=== PATIENT | female | born 1955 | race Caucasian/White ===

== ENCOUNTER 2023-11-19 09:46 | Outpatient (AMB) | payer MEDICARE, OTHER, SELFPAY ==
--- NOTE | 2023-11-19 10:10 | A.SPINEOV_ITS ---
Intake Visit Reasons: lumbar stenosis Intake Note: Ms. Restrepo is here today c/o low back pain, MRI at [facility] Communications Engineer Required: No Allergies cefazolin [From Ancef] Allergy (Severe, Verified 11/19/23 10:15) Anaphylaxis ketorolac [From Toradol] Allergy (Severe, Verified 11/19/23 10:15) Anaphylaxis cephalexin [From Keflex] Allergy (Mild, Verified 11/19/23 10:15) Rash Assessment & Plan Assessment & Plan (1) Spondylolisthesis, lumbar region: Code(s): M43.16 - Spondylolisthesis, lumbar region Category: Medical Plan Dear Jaun, Thank you for referring Mrs Restrepo to our office today. She is a 68-year-old female history of osteoporosis presents to the office today for evaluation of a back pain and bilateral lower extremity pain radiating down to her calves and feet that started 8-10 months ago. She had no major issues prior to that. She has not clear exactly why it started but it has been getting so bad that she has having a hard time standing and walking for any distance. She has been using the grocery cart in the store for grocery shopping. She tries to avoid any prolonged walking if at all. She has a history of peripheral artery disease and stents in her legs secondary to smoking. She tells me she had an evaluation of these and was told that the blood flow in her legs is fine. To this point she has only had a workup in your office with an MRI showing the findings of severe foraminal stenosis with spondylolisthesis at L5-S1 amongst other degenerative changes. She has been taking Tylenol and Motrin but those do not seem to have any effect. She has had no cortisone shots her physical therapy or other conservative management. PMH: She has an extensive medical history, mostly related to vascular issues, specifically she has had peripheral artery disease in her lower extremities with stents done a number of years ago. She has carotid stenosis, and has been followed by serial imaging and is due to see her vascular surgeon sometime this month. She is on Plavix for both of these issues. She is asthma and COPD, takes a few inhalers every few days but otherwise does not have any shortness of breath the report. No leg swelling. She has a history of AFib and is on Eliquis. History of coronary artery disease, but tells me she has never had a heart attack. History of pulmonary hypertension, hyperlipidemia, hypercalcemia, hyperparathyroidism, fatty liver, previous history of alcoholism with pancreatitis, GERD, osteoporosis, chronic diarrhea, depression, insomnia, breast cancer, status post mastectomy. Denies any history of abdominal surgeries. Social hx: She is still smoking about half a pack a day, she is in remission from alcohol abuse denies any use of recreational drugs Medications: Albuterol, amitriptyline, calcium, famotidine, Plavix, Eliquis, Prolia injections twice a year, hydroxyzine, lovastatin, venlafaxine, trazodone, Trelegy, gabapentin Allergies: Keflex, Ancef, amoxicillin, vanco and Toradol Physical exam: She is awake alert oriented no acute distress, she has full strength of bilateral lower extremities with normal reflexes. Imaging review: There is a lumbar MRI done at [facility] showing significant disc degeneration at multiple levels of the lumbar spine. She has a grade 1 spondyl olisthesis at L4-5 with bilateral foraminal stenosis. There is also a T1, T2 hypointense structure arising near the L5-S1 facet joint causing narrowing of the lateral recess. She also has significant facet hypertrophy at L4-5. She has a slightly collapsed disc at L3-4 on the left as well. Impression: 68-year-old female history of osteoporosis, history of AFib on Eliquis, vasculopathy on Plavix presents to the office today for evaluation of 8-10 months of chronic back pain with superimposed bilateral lower extremity pain radiating down into her feet. She has an MRI as outlined above with significant findings for nerve impingement at L5-S1 as well as facet hypertrophy at L4-5 and partial disc collapse at L3-4. I am going to send her for standing flexion-extension x-rays to rule out occult instability due evaluate for scoliotic curvature. I would also like to get a better look at her bone quality with a noncontrast lumbar CT given her history of osteoporosis. Typically, surgical correction of these problems involves instrumentation and hardware and her bone quality will be critical to understanding whether or not Dr. Albert can do surgery on her. Once he CT scan is complete I will bring her back the office to review and discuss options with her. I do not think there is any role here for cortisone shots or physical therapy but I did offer them both to her if she would look to avoid surgery but she does not believe these things will help her either. Thank you for allowing us to care for your patient. The total time spent with this visit with this patient was 45 minutes reviewing history, physical exam, lumbar imaging review, and implementation of treatment plan or further diagnostic testing Ronaldo Albert MD,PhD [facility] Orders: Orders XR lumbar spine 4V min Today M43.16 - Spondylolisthesis, lumbar region CT lumbar spine wo IV con Today M43.16 - Spondylolisthesis, lumbar region Coding Level of Care Code New Pt Level 4 (59791) Diagnoses Spondylolisthesis, lumbar region M43.16
== END 2023-11-19 11:17 | disposition home or self-care (01) ==
PROVIDERS: PCP Internal Medicine; Referring Provider Physician Assistant; Visit Provider Physician Assistant
DX: M43.16 Spondylolisthesis, lumbar region (principal)
CPT/HCPCS: 99204

== ENCOUNTER 2023-11-19 09:46 | Outpatient (REF) | payer MEDICARE, OTHER, SELFPAY ==
--- NOTE | ~2023-11-19 | XR_ITS ---
EXAMINATION: XR LUMBOSACRAL SPINE WITH OBLIQUES CLINICAL INFORMATION: Spondylolisthesis lumbar region. COMPARISON: None available. TECHNIQUE: 4 views of the lumbar spine inclusive of flexion and extension views. FINDINGS: Diffuse demineralization. Dextroscoliosis of the lumbar spine. Degenerative changes in the bilateral sacroiliac joints. Left vascular stent present overlying the iliac region. Facet arthritis in the lower lumbar spine. Atherosclerotic aortic calcifications. Multilevel lumbar spondylosis with loss of disc space height and subchondral sclerosis most notable at L3-L4. Mild grade 1 anterolisthesis of L4 on L5 with flexion and extension. There is a transitional lumbosacral vertebral body referred to as L5 for the purposes of this dictation. Grade 1 anterolisthesis of L5 on S1 persists on flexion and extension views with probable spondylolyses. Correlation with imaging of the entire spine recommended before any procedure/instrumentation to ensure correct numbering of vertebral bodies. XR/XR lumbar spine 4V min IMPRESSION: 1. Multilevel lumbar spondylosis most notable at L3-L4. 2. Grade 1 anterolisthesis of L5 on S1 persists on flexion and extension views with probable spondylolyses. There is a transitional lumbosacral vertebral body referred to as L5 for the purposes of this dictation. Correlation with imaging of the entire spine recommended before any procedure/instrumentation to ensure correct numbering of vertebral bodies.
== END 2023-11-19 09:47 | disposition home or self-care (01) ==
LOC: HO.HOSX 09:46
PROVIDERS: PCP Internal Medicine; Visit Provider Physician Assistant
DX: M43.16 Spondylolisthesis, lumbar region (principal)
CPT/HCPCS: 72110; 99202

== ENCOUNTER 2024-01-18 07:49 | Outpatient (REF) | payer MEDICARE, OTHER, SELFPAY ==
--- NOTE | ~2024-01-18 | CT_ITS ---
EXAMINATION: CT LUMBAR SPINE WITHOUT CONTRAST CLINICAL INFORMATION: Spondylolisthesis, lumbar region. COMPARISON: None available. TECHNIQUE: Contiguous axial images through the lumbar spine from T12 to sacrum using 2 mm collimation with bone and soft tissue algorithm. Sagittal and coronal reformatted images acquired. This CT examination was performed using dose optimization techniques as appropriate, variously including the following: *Automated exposure control *Adjustment of mA and/or kV according to patient size (this includes techniques or standardized protocols for targeted exams where dose is matched to indication/reason for exam; i.e. extremities or head) *Use of iterative reconstruction technique DLP; 434 mGy-cm FINDINGS: The last rib-bearing vertebra labeled T12. Subchondral cyst formation, decreased intervertebral disc height, marginal osteophyte formation and vacuum phenomenon, L3-4. Grade 1 anterolisthesis, L5-S1. Degenerative changes in the of the facet joints, L4-5 and L5-S1, bilaterally. Dystrophic ossifications within the medial aspect of the right facet joints L5-S1 and S1-2, likely encroaching/compressing the exiting nerve roots, L5, S1 and S2 levels. No acute cortical disruption. Multilevel marginal osteophyte formation, T12-L1 to L4-5. Central spinal canal and bilateral neuroforamina stenosis at L5-S1, L4-5 levels on a multifactorial basis. Nonobstructing nephrolithiasis, right pelvicalyceal system. Calcified plaque throughout the abdominal aorta wall and iliac arteries as well as the origin of the mesenteric arteries and the main renal arteries. Punctate calcifications within the head and uncinate process of the pancreas. Calcified plaques in the splenic artery. Appendix is normal. Low density in a prominent right adrenal gland measuring -7 Hounsfield units, similar on the left adrenal gland. Questionable punctate calcifications in the gallbladder lumen.. CT/CT lumbar spine wo IV con IMPRESSION: Multilevel spondylosis more conspicuous at L3-4. Grade 1 anterolisthesis on a degenerative basis, L5-S1 compressing the neural elements. Dystrophic calcification centered within the facet joints L5-S1 and S1-2 on the right side likely compressing the exiting nerve roots. Nonobstructing nephrolithiasis, right kidney. Probable cholelithiasis. Lipid rich adenoma versus hyperplasia, both adrenal glands.. Electronically signed by: Harjeet Menjivar MD 03/20/2024 11:54 AM EDT RP
== END 2024-01-18 07:50 | disposition home or self-care (01) ==
LOC: HO.CT 07:49
PROVIDERS: PCP Internal Medicine; Visit Provider Physician Assistant
DX: M43.16 Spondylolisthesis, lumbar region (principal)
CPT/HCPCS: 72131

== ENCOUNTER → 2024-01-18 07:54 | Outpatient (BNV) | payer MEDICARE, OTHER, SELFPAY | PROVIDERS: PCP Internal Medicine; Visit Provider Radiology Diagnostic Radiology | DX: M43.16 Spondylolisthesis, lumbar region (principal) | CPT/HCPCS: 72131 ==

== ENCOUNTER 2024-03-28 11:09 | Outpatient (AMB) | payer MEDICARE, OTHER, SELFPAY ==
--- NOTE | 2024-03-28 11:20 | A.SPINEOV_ITS ---
Intake Visit Reasons: CT follow up/with in office Intake Note: Ms. Restrepo is here today to F/u on the results to her CT. Local Tanker Truck Driver Required: No Allergies cefazolin [From Ancef] Allergy (Severe, Verified 11/19/23 10:15) Anaphylaxis ketorolac [From Toradol] Allergy (Severe, Verified 11/19/23 10:15) Anaphylaxis cephalexin [From Keflex] Allergy (Mild, Verified 11/19/23 10:15) Rash Assessment & Plan Assessment & Plan (1) Spondylolisthesis, lumbar region: Code(s): M43.16 - Spondylolisthesis, lumbar region Category: Medical Plan Mrs Restrepo is following up in the office today. Please see the last note for the specifics of a problem. She has significant stenosis and degeneration of her back. She also has a history of osteoporosis in the setting of alcoholism. She is a vasculopath, recently had a stroke, carotid endarterectomy a few months back as well as some kind of interventional procedure, sounds like a stent in and around the area that she had surgery on her neck. She remains on Plavix now for the stent, not just for her baseline vasculopathy. I explained to her that back surgery is elective and that it would be high risk at this point to try to do anything with her lumbar stenosis. The back pain seems to be a bit better any way but she is still having the leg pains. I told her to come back and see us down the road once her medical conditions have improved, and her vascular doctors tell her if/when it is okay to come off her Plavix after the stent. Total amount of time spent in this visit was 20 minutes in discussion of symptoms, CT and x-rays imaging results and subsequent plan of care Ronaldo Albert MD,PhD [facility] Coding Level of Care Code Est Pt Level 3 (28047) Diagnoses Spondylolisthesis, lumbar region M43.16
== END 2024-03-28 11:39 | disposition home or self-care (01) ==
PROVIDERS: PCP Internal Medicine; Visit Provider Physician Assistant
DX: M43.16 Spondylolisthesis, lumbar region (principal)
CPT/HCPCS: 99213

== ENCOUNTER → 2024-03-28 11:09 | Outpatient (BNVA) | payer MEDICARE, OTHER, SELFPAY | PROVIDERS: PCP Internal Medicine; Visit Provider Physician Assistant | DX: M43.16 Spondylolisthesis, lumbar region (principal) | CPT/HCPCS: 99212 ==

== ENCOUNTER 2024-04-25 11:02 | Outpatient (AMB) | payer MEDICARE, OTHER, SELFPAY ==
--- NOTE | 2024-04-25 11:47 | A.SPINEOV_ITS ---
Vital Signs 04/25/24 11:49 Height 5 ft 6 in Weight 116 lb BMI 18.7 Intake Visit Reasons: Discuss sx Intake Note: Ms. Restrepo is here to Discuss Surgical options. Laboratory Animal Care Veterinarian Required: No Allergies cefazolin [From Ancef] Allergy (Severe, Verified 04/25/24 11:48) Anaphylaxis ketorolac [From Toradol] Allergy (Severe, Verified 04/25/24 11:48) Anaphylaxis cephalexin [From Keflex] Allergy (Mild, Verified 04/25/24 11:48) Rash Physical Exam Vital Signs: BMI result Body Mass Index 18.7 Assessment & Plan Assessment & Plan (1) Thoracic back pain: Code(s): M54.6 - Pain in thoracic spine Category: Medical Plan MRs Restrepo is here in follow-up. She has been having new symptoms over the last few months. She describes as a spontaneous onset of midthoracic pain that is radiating outward as well as downward toward her lumbar spine. She has not recall any specific event when it started but rather just been getting steadily worse. It is not responded to [id number] pain medications. She can not take anti-inflammatories because she is on Plavix. No new neurological issues in terms of weakness or numbness going down her legs. She has been having trouble sleeping. I am going to order a thoracic MRI to evaluate for compression fracture in the setting of her known osteoporosis. I can call her with the results. She is on Plavix due to stent that was placed in her neck sometime around December or January. She does have a compression fracture or some other pathology that needs surgery we need to take this into consideration. Total amount of time spent in this visit was 20 minutes in discussion of symptoms, ordering thoracic imaging and subsequent plan of care Ronaldo Albert MD,PhD [facility] Orders: Orders MR thoracic spine wo con Today M54.9 - Dorsalgia, unspecified Coding Level of Care Code Est Pt Level 3 (67961) Diagnoses Thoracic back pain M54.6
[2024-04-25 11:49] VITALS: BMI 18.7
--- OUTSIDE RECORDS SUMMARY | 2024-04-30 07:47 | XMS_ITS ---
[facility] Name [facility] Organization Unknown History of Medication Use Medication Directions Dispensed Refills Start Date End Date Stat nicotine (NICODERM CQ) 21 MG/24HR patch Place 1 patch on the skin daily. 06/13/2023 active HYDROmorphone (DILAUDID) 2 MG tablet Take 1 tablet (2 mg total) by mouth 4 times daily (every 6 hours) as needed for severe pain. Max Daily Amount: 8 mg 06/13/2023 active traZODone (DESYREL) 50 MG tablet Take 1.5 tablets (75 mg total) by mouth nightly. 06/13/2023 active Incruse Ellipta 62.5 MCG/ACT inhaler INHALE 1 PUFF INTO THE LUNGS DAILY FOR 30 DAYS 06/13/2023 active clopidogrel (PLAVIX) 75 MG tablet Take 1 tablet (75 mg total) by mouth daily. 06/13/2023 active folic acid (FOLVITE) 1 MG tablet Take 1 tablet (1 mg total) by mouth daily. 06/13/2023 active vitamin B-12 100 MCG tablet Take 1 tablet (100 mcg total) by mouth daily. 06/13/2023 active gabapentin (NEURONTIN) 300 MG capsule Take 2 capsules (600 mg total) by mouth nightly. 06/13/2023 active polyethylene glycol (miraLAx) 17 g packet Take 1 packet (17 g total) by mouth daily. 06/13/2023 active Eliquis 5 MG tablet Take 1 tablet (5 mg total) by mouth 2 (two) times a day. 06/13/2023 active venlafaxine (EFFEXOR-XR) 75 MG 24 hr capsule Take 1 capsule (75 mg total) by mouth daily. 06/13/2023 active hydrOXYzine pamoate (VISTARIL) 25 MG capsule Take 1 capsule (25 mg total) by mouth 4 times daily (every 6 hours) as needed for anxiety. 06/13/2023 active albuterol (PROVENTIL HFA; VENTOLIN HFA) 108 (90 Base) MCG/ACT inhaler INHALE 2 PUFFS INTO LUNGS EVERY 6 HRS NEEDED FOR COUGH/WHEEZING 06/13/2023 active senna (SENOKOT) 8.6 MG Tab tablet Take 2 tablets by mouth daily as needed for constipation. 06/13/2023 active PANTOprazole (PROTONIX) 20 MG tablet Take 2 tablets (40 mg total) by mouth daily. 06/13/2023 active lovastatin (MEVACOR) 40 MG tablet Take 1 tablet (40 mg total) by mouth nightly. 06/13/2023 active citalopram (CeleXA) 40 MG tablet Take 1 tablet (40 mg total) by mouth daily. 06/13/2023 active Problems Problem Status Onset Date Problem Type Date of Resoluti on Source Transaminitis active 2023-05-27 ProblemAct [facility] T Pancreatic duct stricture active 2023-05-29 ProblemAct [facility] Biliary stricture active 2023-05-27 ProblemAct [facility] H/O ETOH abuse active 2023-05-[address] Macrocytic anemia active 2023-05-27 ProblemAct [facility]
== END 2024-04-25 13:08 | disposition home or self-care (01) ==
PROVIDERS: PCP Internal Medicine; Visit Provider Physician Assistant
DX: M54.6 Pain in thoracic spine (principal)
CPT/HCPCS: 99213

== ENCOUNTER → 2024-04-25 11:02 | Outpatient (BNVA) | payer MEDICARE, OTHER, SELFPAY | PROVIDERS: PCP Internal Medicine; Visit Provider Physician Assistant | DX: M54.6 Pain in thoracic spine (principal) | CPT/HCPCS: 99212 ==

== ENCOUNTER 2024-05-23 11:50 | Outpatient (AMB) | payer MEDICARE, OTHER, SELFPAY ==
--- NOTE | 2024-05-23 11:52 | A.SPINEOV_ITS ---
Intake Visit Reasons: MRI f/u Intake Note: Ms. Restrepo is here to F/u on the results of her MRI. Color Finisher Required: No Allergies cefazolin [From Ancef] Allergy (Severe, Verified 05/23/24 11:53) Anaphylaxis ketorolac [From Toradol] Allergy (Severe, Verified 05/23/24 11:53) Anaphylaxis cephalexin [From Keflex] Allergy (Mild, Verified 05/23/24 11:53) Rash Assessment & Plan Assessment & Plan (1) Thoracic back pain: Code(s): M54.6 - Pain in thoracic spine Category: Medical (2) Spondylolisthesis, lumbar region: Code(s): M43.16 - Spondylolisthesis, lumbar region Category: Medical Plan Mrs Restrepo came back today for follow-up. I do not have a report on her imaging done from [facility], but the thoracic MRI does not show any evidence of acute fracture on STIR imaging and there is no spinal cord compression. Therefore, I think this could be a muscular phenomenon some sort. With regard to her lumbar spine as well, I reviewed her imaging again in specifically the CT which shows very thin bones with osteoporosis. I do not think Dr. Albert would be willing to put screws into this and perform a fusion for back pain given the high likelihood of failure or fracture of the bone during placement of a cage. The patient understands that there are limitations with this equipment and that she would be high risk. She is probably best served in the pain management realm. Total amount of time spent in this visit was 20 minutes in discussion of symptoms, thoracic and lumbar imaging results and subsequent plan of care Ronaldo Albert MD,PhD [facility] Coding Level of Care Code Est Pt Level 3 (60290) Diagnoses Thoracic back pain M54.6 Spondylolisthesis, lumbar region M43.16
--- OUTSIDE RECORDS SUMMARY | 2024-05-23 13:38 | XMS_ITS ---
Author Organization [place] [email or web address] [facility] [employer], [employer] sales management trainee KON Care Team Providers Care Acupuncture Physician Name Role Phone Unavailable Unavailable Unavailable Fernie Tristan MD Primary Care Provider Fernie Tristan MD Primary Care Provider [phone] Allergies Allergy Classification Reported Allergen(s) Allergy Type Date of Onset Reaction(s) Care Provider Facility Cephalosporins (antibiotic) (20 sources) ceFAZolin Allergy to drug 018 Anaphylaxis, Photosensitivity Antonio bearden MD Work Phone: [facility] Work Phone: Glycopeptides (antibiotic) (13 sources) vancomycin Allergy to drug 024 Other (See Comments) Itzel White RN Work Phone: [facility] Work Phone: Comment on above: Pt is unsure the type of reaction she michaels s with vanco NSAIDs (13 sources) ketorolac Allergy to drug 024 Anaphylaxis Kenji Escobedo DO Work Phone: [facility] Encounters Encounter Date Encounter Type Encounter Diagnosis Care Provider Facility Start: 04-23-2024 12:43-0500 End: 04-23-2024 12:43-0500 Telephone encounter Bryce Capps MD Work Phone: [facility] Start: 07-30-2023 12:00-0400 Telephone encounter Bryce Capps MD Work Phone: [facility] Start: 07-16-2023 12:00-0500 Telephone encounter Bryce Capps MD Work Phone: [facility] Comment on above: Other Start: 06-18-2023 12:00-0500 Telephone encounter Bryce Capps MD Work Phone: [facility] Start: 06-13-2023 12:00-0500 Telephone encounter Bryce Capps MD Work Phone: [facility] Start: 06-11-2023 12:00-0500 Telephone encounter Bryce Capps MD Work Phone: [facility] Start: 05-27-2023 16:35-0500 End: 05-30-2023 17:18-0500 Evaluation and management of inpatient Abdominal pain Kenji Escobedo DO Work Phone: Antonio Goel MD Work Phone: Kiko Merrill MD Work Phone: Lamont Knapp MD Work Phone: Nick Shell MD Work Phone: [facility] Comment on above: Abdominal pain (Primary Dx); Transaminitis; Hyperbilirubinemia; Biliary stricture; Drug-induced constipation [facility] Medical Equipment Procedure Code Equipment Code Equipment Origin al Text Equipment Identifier Dates [id number] Stent Pancreatic 5fr 9cm Pigtail Curve Radopq Push Cath - [id number] Start: 05-29-2023 [id number] Stent Estevan iary Cotton-Adams 10fr 7cm Taper Tip Pstn Sleeve - [id number] Start: 05-29-2023 Medications Current Medications Medication Drug Class(es) Dates Sig (Normalized) Sig (Original) [id number] 200 ACTUAT albuterol 0.09 MG/ACTUAT Metered Dose Inhaler (8 sources) beta2-Adrenergic Agonist Start: 05-27-2023 take 2 puff(s) by inhalation every six hours as needed for wheezing 2 puff, Inhalation, Every 6 hours PRN, wheezing, shortness of breath, Starting on 05/27/23 at 1915 Start: 05-05-2023 take 2 puff(s) by in halation every six hours as needed for cough INHALE 2 PUFFS INTO LUNGS EVERY 6 HRS NEEDED FOR COUGH/WHEEZING apixaban 5 MG Oral Tablet (8 sources) Factor Xa Inhibitor Start: 05-11-2023 take 1 tablet by mouth twice daily 5 mg, Oral, 2 times daily, First dose on 05/27/23 at 2100, Tablets may be crushed and suspended in 60 mL of water, D5W, or apple juice or mixed with applesauce; administer immediately. For delivery through a nasogastric tube, crushed tablets may be suspended in 60 mL of water or D5W followed by immediate delivery., Indication for Anticoagulation: Atrial Fibrillation citalopram 40 MG Oral Tablet (7 sources) Serotonin Reuptake Inhibitor Start: 03-10-2023 take 1 tablet by mouth once daily Take 1 tablet (40 mg total) by mouth daily. clopidogrel 75 MG Oral Tablet (8 sources) P2Y12 Platelet Inhibitor Start: 03-15-2023 take 75 mg by mouth once daily 75 mg, Oral, Daily, First dose on 05/27/23 at 1916 14 ACTUAT fluticasone furoate 0.1 MG/ACTUAT / vilanterol 0.025 MG/ACTUAT Dry Powder Inhaler (1 source) Corticosteroid, beta2-Adrenergic Agonist Start: 05-28-2023 fluticasone-vilanter ol (BREO ELLIPTA) 100-25 MCG/ACT inhaler 1 puff folic acid 1 MG Oral Tablet (8 sources) Start: 05-27-2023 take 1000 ug by mouth once daily 1,000 mcg, Oral, Daily, First dose on 05/27/23 at 1916 Start: 03-13-2023 take 1 tablet by mouth once da rach Take 1 tablet (1 mg total) by mouth daily. gabapentin 300 MG Oral Capsule (8 sources) Anti-epileptic Agent Start: 05-27-2023 take 600 mg by mouth once daily 600 mg, Oral, Nightly, First dose on 05/27/23 at 2100 Start: 03-07-2023 take 2 capsules by m outh once daily Take 2 capsules (600 mg total) by mouth nightly. HYDROmorphone hydrochloride 2 MG Oral Tablet (11 sources) Opioid Agonist Start: 05-30-2023 End: 06-06-2023 Take 1 tablet (2 mg total) by mouth 4 times daily (every 6 hours) as needed for severe pain. Max Daily Amount: 8 mg Start: 05-29-2023 End: 05-30-2023 take 1 mg intravenously every three hours as needed HYDROmorphone (DILAUDID) injection 1 mg Start: 05-27-2023 End: 05-29-2023 take 0.5 mg intravenously every three hours as needed HYDROmorphone (DILAUDID) injection 0.5 mg hydrOXYzine hydrochloride 25 MG Oral Tablet (8 sources) Antihistamine Start: 05-27-2023 take 1 tablet by mouth every six hours as needed 25 mg, Oral, Every 6 hours PRN, itching, nausea, anxiety, Starting on 05/27/23 at 1915 Start: 05-24-2023 take 1 capsule by mo [facility] every six hours as needed Take 1 capsule (25 mg total) by mouth 4 times daily (every 6 hours) as needed for anxiety. lovastatin 40 MG Oral Tablet (7 sources) HMG-CoA Reductase Inhibitor Start: 03-10-2023 take 1 tablet by mouth once daily Take 1 tablet (40 mg total) by mouth nightly. metoprolol tartrate 25 MG Oral Tablet (1 source) beta-Adrenergic Moody Start: 05-28-2023 take 1 tablet by mouth every six hours as needed metoPROLOL TARTRATE (LOPRESSOR) tablet 25 mg 24 HR nicotine 0.875 MG/HR Transdermal System (7 sources) Cholinergic Nicotinic Agonist Start: 05-24-2023 apply 1 dose transdermal route once daily Place 1 patch on the skin daily. 2 ML ondansetron 2 MG/ML Injection (2 sources) Serotonin-3 Receptor Antagonist Start: 05-29-2023 ondansetron (ZOFRAN) injection 4 mg Start: 05-27-2023 End: 05-27-2023 ondansetron (ZOFRAN) injecti on 4 mg polyethylene glycol [id number] [id number] MG Powder for Oral Solution (7 sources) Osmotic Laxative Start: 05-30-2023 End: 06-29-2023 take 1 dose by mouth once daily Take 1 packet (17 g total) by mouth daily. pravastatin sodium 40 MG Oral Tablet (1 source) HMG-CoA Reductase Inhibitor Start: 05-27-2023 take 40 mg by mouth once daily 40 mg, Oral, Nightly, First dose on 05/27/23 at 2100 sennosides, SKILLED NURSING 8.6 MG Oral Tablet (7 sources) Start: 05-30-2023 End: 06-29-2023 take 2 tablets by mouth once daily as needed for constipation Take 2 tablets by mouth daily as needed for constipation. traZODone 25 MG Oral Capsule (8 sources) Serotonin Reuptake Inhibitor Start: 05-27-2023 take 25 mg by mouth once daily 25 mg, Oral, Nightly, First dose on 05/27/23 at 2100 Start: 05-24-2023 take 1.5 tablets by mouth once daily Take 1.5 tablets (75 mg total) by mouth nightly. 7 ACTUAT umeclidinium 0.0625 MG/ACTUAT Dry Powder Inhaler (7 sources) Anticholinergic Start: 04-22-2023 take 1 puff(s) by inhalation once daily INHALE 1 PUFF INTO THE LUNGS DAILY FOR 30 DAYS 24 HR venlafaxine 37.5 MG Extended Release Oral Capsule (8 sources) Serotonin and Norepinephrine Reuptake Inhibitor Start: 05-28-2023 take 1 tablet by mouth once daily at breakfast 75 mg, Oral, Daily with breakfast, First dose on Sun05/28/23 at 0800, *Swallow capsule/tablet whole. Alternatively, the contents of the capsule/tablet may be sprinkled onto a tablespoon of applesauce and consume immediately without chewing* Start: 05-24-2023 take 1 capsule by mouth once d aily Take 1 capsule (75 mg total) by mouth daily. vitamin B12 0.25 MG Oral Tablet (8 sources) Vitamin B12 Start: 05-27-2023 take 250 ug by mouth once daily 250 mcg, Oral, Daily, First dose on 05/27/23 at 1916 Start: 04-22-2023 take 1 tablet by mouth once da rach Take 1 tablet (100 mcg total) by mouth daily. Completed/Discontinued Medications Medication Drug Class(es) Dates Sig (Normalized) Sig (Original) aspirin 81 MG Delayed Release Oral Tablet (1 source) Platelet Aggregation Inhibitor, Nonsteroidal Anti-inflammatory Drug End: 05-28-2023 take 1 tablet by mouth once daily Take 1 tablet (81 mg total) by mouth daily. 50 ML calcium gluconate 20 MG/ML Injection (1 source) Start: 05-30-2023 End: 05-30-2023 calcium gluconate IVPB 1 g in 50 mL 0.67% NaCl PREMIX dilTIAZem hydrochloride 30 MG Oral Tablet (2 sources) Calcium Channel Moody Start: 04-22-2023 End: 05-30-2023 take 1 tablet by mouth every six hours 30 mg, Oral, Every 6 hours, First dose on Sun05/27/23 at 1916, Hold for HR less than 45 bpm and/or SBP less than 90 mmHg. Notify provider if a dose is held. 60 ACTUAT fluticasone propionate 0.25 MG/ACTUAT / salmeterol 0.05 MG/ACTUAT Dry Powder Inhaler (1 source) Corticosteroid, beta2-Adrenergic Agonist Start: 03-08-2023 End: 05-28-2023 take 1 puff(s) by inhalation twice daily Inhale 1 puff 2 (two) times a day. furosemide 20 MG Oral Tablet (2 sources) Loop Diuretic Start: 03-20-2023 End: 05-30-2023 20 mg, Oral, Daily, First dose on Sun05/28/23 at 0900, Hold for SBP less than 100 mmHg. Notify provider if a dose is held. 12 HR guaifenesin 600 MG Extended Release Oral Tablet (1 source) Expectorant Start: 04-22-2023 End: 05-28-2023 take 1 tablet by mouth every six hours Take 1 tablet (600 mg total) by mouth twice daily (every 12 hours). calcium chloride 0.0014 MEQ/ML / potassium chloride 0.004 MEQ/ML / sodium chloride 0.103 MEQ/ML / sodium lactate 0.028 MEQ/ML Injectable Solution (1 source) Start: 05-27-2023 End: 05-27-2023 lactated ringers (LR) bolus 100 ML magnesium sulfate 10 MG/ML Injection (1 source) Start: 05-30-2023 End: 05-30-2023 magnesium sulfate IVPB 1 g in 100 mL D5W (premix) naltrexone hydrochloride 50 MG Oral Tablet (1 source) Opioid Antagonist Start: 03-20-2023 End: 05-28-2023 take 1 tablet by mouth once daily TAKE 1 TABLET BY MOUTH DAILY DO NOT START UNTIL 03/26/23 pantoprazole 40 MG Delayed Release Oral Tablet (10 sources) Proton Pump Inhibitor Start: 05-30-2023 End: 05-30-2023 take 1 tablet by mouth twice daily Take 1 tablet (40 mg total) by mouth 2 times a day. Start: 05-30-2023 End: 06-29-2023 take 2 tablets by mouth once daily Take 2 tablets (40 mg total) by mouth daily. Start: 05-27-2023 40 mg, Intrave nous, 2 times daily, First dose on 05/27/23 at 2100, Reconstitute each 40 mg vial with 10 ml NS and administer over 2 minutes Start: 03-10-2023 End: 05-30-2023 take 1 tablet by mouth once daily Take 1 tablet (20 mg total) by mouth daily. potassium chloride 20 MEQ Powder for Oral Solution (1 source) Start: 05-30-2023 End: 05-30-2023 potassium chloride (KLOR-CON ) packet 40 mEq POTASSIUM phosphate IVPB 15 mmol in 250 mL NS (premix) (1 source) Start: 05-30-2023 End: 05-30-2023 POTASSIUM phosphate IVPB 15 mmol in 250 mL NS (premix) 1000 ML sodium chloride 9 MG /ML Injection (1 source) Start: 05-27-2023 End: 05-30-2023 sodium chloride 0.9% (NS) infusion Payers Date Payer Normalized Payer [id number] 03-21-2022 [id number] Plan of Treatment Date Care Activity Detail Author Start: 01-20-2024 COVID-19 Vaccine ( season) COVID-19 Vaccine ( season) [facility] Start: 08-21-2023 End: 08-21-2023 Admission to same day surgery center 08/21/2023 11:00 AM EDT - 08/21/2023 12:00 PM EDT Surgery [facility] [address] [place] [address] Bryce Capps MD [address] [place] [id number] ERCP /C PLACEMENT STENT [facility] Comment on above: ERCP /C PLACEMENT STENT Start: 08-21-2023 End: 08-21-2023 Ercp stent placement biliary/pancreatic duct ERCP /C PLACEMENT STENT Pancreatic duct stricture 08/21/2023 11:00 AM EDT [facility] Start: 08-21-2023 End: 08-21-2023 Patient encounter procedure 08/21/2023 11:00 AM EDT Appointment [address] [phone] Bryce Capps MD [address] [place] [id number] [facility] Start: 08-21-2023 Subsequent hospital visit by physician 08/21/2023 11:00 AM EDT Hospital Encounter [facility] [address] [place] [phone] Bryce Capps MD [address] [place] [id number] [facility] Start: 01-19-2023 COVID-19 Vaccine ( season) COVID-19 Vaccine ( season) [facility] Start: 12-19-2022 Administration of influenza vaccine Influenza Vaccine [facility] Start: 2022 DXA Bone Density (Females,Ages 65 and older) DXA Bone Density (Females,Ages 65 and older) [facility] Start: 2017 RSV Vaccine 60 years and older and Patients (1 - 1-dose 60+ series) RSV Vaccine 60 years and older and Patients (1 - 1-dose 60+ series) [facility] Start: 2017 RSV Vaccine 60 years and older and Patients (1 - Risk 60-74 years 1-dose series) RSV Vaccine 60 years and older and Patients (1 - Risk 60-74 years 1-dose series) [facility] Start: 2007 Hzv zoster vacc recombinant adjuvanted im njx Zoster (Shingles) Vaccine (1 of 2) [facility] Start: 2007 Screening for malignant neoplasm of lung Lung Cancer Screening (LDCT) [facility] Start: 2002 Screening for malignant neoplasm of colon Colonoscopy [facility] Start: 1997 Mammography Mammogram [facility] Start: 1976 DTaP/Tdap/Td Vaccines (1 - Tdap) DTaP/Tdap/Td Vaccines (1 - Tdap) [facility] Start: 1963 Pneumococcal Vaccines 65+ (1 of 2 - PCV) Pneumococcal Vaccines 65+ (1 of 2 - PCV) [facility] Start: 1957 COVID-19 Vaccine (#1) COVID-19 Vaccine (#1) [facility] are Bacteria identified in Blood by Culture BLOOD CULTURE Peripheral Lab STAT 05/27/2023 7:49 PM EST [facility] End: 05-31-2023 Complete blood count without differential COMPLETE BLOOD COUNT, WITHOUT DIFFERENTIAL Lab Routine *Early AM Draw (5:30AM) for 1 Occurrences starting 05/31/2023 until 05/31/2023 [facility] Work Phone: Comment on above: *Early AM Draw (5:30AM) for 1 Occurrence s starting 05/31/2023 until 05/31/2023 End: 05-31-2023 Comprehensive metabolic 2000 panel - Serum or Plasma Comprehensive Metabolic Panel (Early AM) Lab Routine *Early AM Draw (5:30AM) for 1 Occurrences starting 05/31/2023 until 05/31/2023 [facility] Comment on above: *Early AM Draw (5:30AM) for 1 Occurrence s starting 05/31/2023 until 05/31/2023 End: 05-27-2023 GABRIEL Archive for reference only GABRIEL Archive for reference only Imaging Routine One time imaging One time imaging for 1 Occurrences starting 05/27/2023 until 05/27/2023 [facility] Comment on above: One time imaging One time imaging for 1 Occurrences starting 05/27/2023 until 05/27/2023 [facility] Archive for reference only CT GABRIEL Archive for reference only CT Imaging Routine 05/27/2023 until discontinued, 1 completed [facility] Comment on above: 05/27/2023 until discontinued, 1 complet ed GABRIEL Archive for reference only CT GABRIEL Archive for reference only CT Imaging STAT 05/27/2023 until discontinued, 1 completed [facility] Comment on above: 05/27/2023 until discontinued, 1 complet ed GABRIEL Archive for reference only DX GABRIEL Archive for reference only DX Imaging Routine 05/27/2023 until discontinued, 1 completed [facility] Comment on above: 05/27/2023 until discontinued, 1 complet ed GABRIEL Archive for reference only MR GABRIEL Archive for reference only MR Imaging Routine 05/27/2023 until discontinued, 1 completed [facility] Work Phone: Comment on above: 05/27/2023 until discontinued, 1 complet ed GABRIEL Archive for reference only MR GABRIEL Archive for reference only MR Imaging STAT 05/27/2023 until discontinued, 1 completed [facility] Comment on above: 05/27/2023 until discontinued, 1 complet ed GABRIEL Archive for reference only US GABRIEL Archive for reference only US Imaging Routine 05/27/2023 until discontinued, 1 completed [facility] Comment on above: 05/27/2023 until discontinued, 1 complet ed GABRIEL Archive for reference only US GABRIEL Archive for reference only US Imaging STAT 05/27/2023 until discontinued, 1 completed [facility] Comment on above: 05/27/2023 until discontinued, 1 complet ed End: 05-29-2023 FL ERCP FL ERCP Imaging Routine One time imaging One time imaging for 1 Occurrences starting 05/29/2023 until 05/29/2023 [facility] Work Phone: Comment on above: One time imaging One time imaging for 1 Occurrences starting 05/29/2023 until 05/29/2023 End: 05-31-2023 Magnesium [Mass/volume] in Serum or Plasma MAGNESIUM Lab Routine *Early AM Draw (5:30AM) for 1 Occurrences starting 05/31/2023 until 05/31/2023 [facility] Comment on above: *Early AM Draw (5:30AM) for 1 Occurrence s starting 05/31/2023 until 05/31/2023 End: 05-31-2023 Phosphate [Mass/volume] in Serum or Plasma PHOSPHORUS Lab Routine *Early AM Draw (5:30AM) for 1 Occurrences starting 05/31/2023 until 05/31/2023 [facility] Comment on above: *Early AM Draw (5:30AM) for 1 Occurrence s starting 05/31/2023 until 05/31/2023 End: 05-29-2023 Simple Mask(Supplemental Oxygen) Starting Rate: 6 LPM; Maintain O2 Sat >/= (%): 92 Simple Mask(Supplemental Oxygen) Starting Rate: 6 LPM; Maintain O2 Sat >/= (%): 92 Respiratory Care Routine Until Discontinued until discontinued starting 05/29/2023 [facility] Work Phone: Comment on above: Until Discontinued until discontinued st arting 05/29/2023 Type and Screen Type and Screen Blood Bank STAT 05/27/2023 5:11 PM EST [facility] Work Phone: End: 05-27-2023 Upload outside films, do not interpret Upload outside films, do not interpret Imaging STAT One time imaging One time imaging for 1 Occurrences starting 05/27/2023 until 05/27/2023 [facility] Comment on above: One time imaging One time imaging for 1 Occurrences starting 05/27/2023 until 05/27/2023 Problems Active Problems Problem Classification Problem Date Last Recorded Documented Date Chronic Condition Indicator Provider Biliary tract disease (9 sources) Biliary stricture; Translations: [Obstruction of bile duct] 05-27-2023 Chronic Kenji [employer] DO Work Phone: Other nutritional; endocrine; and metabolic disorders (1 source) Hyperbilirubinem ia; Translations: [Other disorders of bilirubin metabolism] 05-27-2023 Chronic Kenji [employer] DO Work Phone: Alcohol-related disorders (8 sources) History of alcohol abuse; 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, in remission] 05-27-2023 Not applicable Kenji [employer] DO Work Phone: Other liver diseases (9 sources) Enzyme level - finding; Translations: [Elevation of levels of liver transaminase levels] 05-29-2023 Not applicable Nick Shell MD Work Phone: Past or Other Problems Problem Classification Problem Date Last Recorded Documented Date Chronic Condition Indicator Provider Abdominal pain (1 source) Abdominal pain; Translations: [Unspecified abdominal pain] 05-27-2023 Episodic Jessica DEL ANGEL Work Phone: Deficiency and other anemia (8 sources) Macrocytic anemia; Translations: [Nutritional anemia, unspecified] 05-27-2023 Episodic Kenji Escobedo DO Work Phone: Other gastrointestinal disorders (1 source) Drug-induced constipation; Translations: [Drug induced constipation] 05-30-2023 Episodic Mer Christensen [facility] [place] [place] Work Phone: Pancreatic disorders (not diabetes) (8 sources) Pancreatic duct stricture; Translations: [Other specified diseases of pancreas] 05-29-2023 Episodic Kenji Parkso DO Work Phone: Procedures Date Procedure Procedure Detail Performing Clinician Start: 05-30-2023 Complete blood count without differential completed Mer GOMEZ Work Phone: Start: 05-30-2023 Comprehensive metabo lic 2000 panel - Serum or Plasma completed Mer Christensen [facility] [place] [place] Work Phone: Start: 05-30-2023 Lipase [Enzymatic activity/volume] in Serum or Plasma completed Nick Shell MD Work Phone: Start: 05-30-2023 Magnesium [Mass/volu me] in Serum or Plasma completed Mer Christensen [facility] [place] [place] Work Phone: Start: 05-30-2023 Phosphate [Mass/volu me] in Serum or Plasma completed Mer Christensen [facility] [place] [place] Work Phone: Start: 05-29-2023 Cmbn ndsc cathj biliary&pncrtc ductal sys rs&i completed Prerna DEL ANGEL Work Phone: Start: 05-29-2023 End: 05-29-2023 ERCP completed Bryce laureano MD Work Phone: Start: 05-29-2023 Comprehensive metabo lic panel completed Lamont Knapp MD Work Phone: Start: 05-29-2023 Magnesium [Mass/volu me] in Serum or Plasma completed Lamont Knapp MD Work Phone: Start: 05-28-2023 Iadna sarscov2 & inf a&b & rsv mult amp probe tq completed Antonio Goel MD Work Phone: Start: 05-28-2023 Comprehensive metabo lic panel completed Antonio Goel MD Work Phone: Start: 05-28-2023 Lactate [Moles/volum e] in Serum or Plasma completed Antonio Goel MD Work Phone: Start: 05-28-2023 Magnesium [Mass/volu me] in Serum or Plasma completed Antonio Goel MD Work Phone: Start: 05-28-2023 Procalcitonin [Mass/ volume] in Serum or Plasma by Immunoassay completed Antonio Goel MD Work Phone: Start: 05-27-2023 Comprehensive metabo lic panel completed Antonio Goel MD Work Phone: Start: 05-27-2023 HIGH SENSITIVITY TROPONIN T complete agustina Goel MD Work Phone: Start: 05-27-2023 12 lead ECG completed Antonio Lujan MD Work Phone: Start: 05-27-2023 Portable XR Chest Views completed Antonio Goel MD Work Phone: Start: 05-27-2023 Bacteria identified in Blood by Culture completed Antonio Goel MD Work Phone: Start: 05-27-2023 Acetaminophen [Mass/ volume] in Serum or Plasma completed Antonio Goel MD Work Phone: Start: 05-27-2023 Acute hepatitis panel completed Agustina Goel MD Work Phone: Start: 05-27-2023 Ammonia [Moles/volum e] in Plasma completed Antonio Goel MD Work Phone: Start: 05-27-2023 Assay of troponin quantitative completed Antonio Goel MD Work Phone: Start: 05-27-2023 C reactive protein [Mass/volume] in Serum or Plasma completed Antonio Goel MD Work Phone: Start: 05-27-2023 Ethanol [Mass/volume ] in Serum or Plasma completed Antonio Goel MD Work Phone: Start: 05-27-2023 Gamma glutamyl trans ferase [Enzymatic activity/volume] in Serum or Plasma completed Antonio Goel MD Work Phone: Start: 05-27-2023 Salicylates [Mass/vo lume] in Serum or Plasma completed Antonio Goel MD Work Phone: Start: 05-27-2023 Triglyceride [Mass/v olume] in Serum or Plasma completed Antonio Goel MD Work Phone: Start: 05-27-2023 Amphetamines [Presen ce] in Urine completed Antonio Goel MD Work Phone: Start: 05-27-2023 Barbiturates [Presen ce] in Urine by Screen method >200 ng/mL completed Antonio Goel MD Work Phone: Start: 05-27-2023 Benzodiazepines [Pre sence] in Urine completed Antonio Goel MD Work Phone: Start: 05-27-2023 Benzoylecgonine [Pre sence] in Urine completed Antonio Goel MD Work Phone: Start: 05-27-2023 Buprenorphine [Prese nce] in Urine completed Antonio Goel MD Work Phone: Start: 05-27-2023 Cannabinoids [Presen ce] in Urine by Screen method >50 ng/mL completed Antonio Goel MD Work Phone: Start: 05-27-2023 Ethanol [Mass/volume ] in Urine completed Antonio Goel MD Work Phone: Start: 05-27-2023 fentaNYL+Norfentanyl [Presence] in Urine by Screen method completed Antonio Goel MD Work Phone: Start: 05-27-2023 Methadone [Presence] in Urine completed Antonio Goel MD Work Phone: Start: 05-27-2023 Opiates [Presence] i n Urine by Screen method >300 ng/mL completed Antonio Goel MD Work Phone: Start: 05-27-2023 oxyCODONE [Presence] in Urine completed Antonio Goel MD Work Phone: Start: 05-27-2023 Phencyclidine [Prese nce] in Urine by Screen method >25 ng/mL completed Antonio Goel MD Work Phone: Start: 05-27-2023 Tricyclic antidepres sants [Presence] in Urine by Screen method completed Antonio Goel MD Work Phone: Start: 05-27-2023 Urnls dip stick/tabl et rgnt auto w/o microscopy completed Antonio Goel MD Work Phone: Start: 05-27-2023 GABRIEL ARCHIVE FOR REFE RENCE ONLY CT completed Antonio Goel MD Work Phone: Start: 05-27-2023 GABRIEL [employer] FOR REFE RENCE ONLY MR completed Antonio Goel MD Work Phone: Start: 05-27-2023 GABRIEL [employer]CH[employer] FOR REFE RENCE ONLY US completed Antonio Goel MD Work Phone: Start: 05-27-2023 Blood typing serologic abo completed Jessica DEL ANGEL Work Phone: Start: 05-27-2023 Comprehensive metabo lic panel completed Jessica DEL ANGEL Work Phone: Start: 05-27-2023 Lipase [Enzymatic activity/volume] in Serum or Plasma completed Jessica DEL ANGEL Work Phone: Start: 05-27-2023 GABRIEL [employer] FOR REFE RENCE ONLY DX completed Antonio Goel MD Work Phone: Start: 05-27-2023 GABRIEL ARCHIVE FOR REFE RENCE ONLY CT completed Antonio Goel MD Work Phone: Start: 05-27-2023 GABRIEL ARCH[employer] FOR REFE RENCE ONLY MR completed Antonio Goel MD Work Phone: Start: 05-27-2023 GABRIEL [employer] FOR REFE RENCE ONLY US completed Antonio Goel MD Work Phone: Results Test Name Value Interpretation Reference Range Facility Date Time Result Note COMPLETE BLOOD COUNT, WITHOU T DIFFERENTIALon 05-30-2023 RBC Auto (Bld) [#/Vol] 2.51 Low [facility] 05-30 07:31 -0500 Red Blood Cell Count 2.51 (L) 4.00 - 5.40 Mil/uL 05/30/2023 7:31 AM [facility] Hematocrit Auto (Bld) [Volume fraction] 28.6 % Low 35.0 - 47.0 % [facility] 05-30 07:31 -0500 Hematocrit 28.6 (L) 35.0 - 47.0 % 05/30/2023 7:31 AM [facility] Hemoglobin (Bld) [Mass/Vol] 9.0 g/dL Low 11.7 - 15.7 g/dL [facility] 05-30 07:31 -0500 Hemoglobin 9.0 (L) 11.7 - 15.7 g/dL 05/30/2023 7:31 AM [facility] MCH Auto (RBC) [Entitic mass] 35.9 pg High 27.0 - 31.0 pg [facility] 05-30 07:31 -0500 MCH 35.9 (H) 27.0 - 31.0 pg 05/30/2023 7:31 AM [facility] MCHC Auto (RBC) [Mass/Vol] 31.5 g/dL 30.0 - 36.0 g/dL [facility] 05-30 07:31 -0500 MCHC 31.5 30.0 - 36.0 g/dL 05/30/2023 7:31 AM [facility] MCV Auto (RBC) [Entitic vol] 114 fL High 80 - 100 fL [facility] 05-30 07:31 -0500 MCV 114 (H) 80 - 100 fL 05/30/2023 7:31 AM [facility] Platelet mean volume Auto (Bld) [Entitic vol] 11.4 fL 7.5 - 12.5 fL [facility] 05-30 07:31 -0500 MPV 11.4 7.5 - 12.5 fL 05/30/2023 7:31 AM [facility] Platelets Auto (Bld) [#/Vol] 187 [facility] 05-30 07:31 -0500 Platelet Count 187 150 - 450 Thou/uL 05/30/2023 7:31 AM [facility] Erythrocyte distribution width Auto (RBC) [Ratio] 17.2 % High 11.5 - 14.5 % [facility] 05-30 07:31 -0500 RDW 17.2 (H) 11.5 - 14.5 % 05/30/2023 7:31 AM [facility] WBC Auto (Bld) [#/Vol] 4.4 [facility] 05-30 07:31 -0500 White Blood Cell Count 4.4 4.0 - 11.0 Thou/uL 05/30/2023 7:31 AM [facility] Comprehensive Metabolic Pane l (Early AM)on 05-30-2023 ALT [Catalytic activity/Vol] 111 U/L High 10 - 50 U/L [facility] 05-30 07:33 -0500 Alanine Aminotrans (ALT) 111 (H) 10 - 50 U/L 05/30/2023 7:33 AM [facility] Albumin [Mass/Vol] 3.2 g/dL Low 3.4 - 4.8 g/dL [facility] 05-30 07:33 -0500 Albumin 3.2 (L) 3.4 - 4.8 g/dL 05/30/2023 7:33 AM [facility] ALP [Catalytic activity/Vol] 311 U/L High 32 - 122 U/L [facility] 05-30 07:33 -0500 Alkaline Phosphatase 311 (H) 32 - 122 U/L 05/30/2023 7:33 AM [facility] AST [Catalytic activity/Vol] 107 U/L High 10 - 50 U/L [facility] 05-30 07:33 -0500 Aspartate Aminotrans (AST) 107 (H) 10 - 50 U/L 05/30/2023 7:33 AM [facility] Bilirubin [Mass/Vol] 1.2 mg/dL High 0.2 - 1.0 mg/dL [facility] 05-30 07:33 -0500 Bilirubin, Total 1.2 (H) 0.2 - 1.0 mg/dL 05/30/2023 7:33 AM [facility] Urea nitrogen/Crea tinine [Mass ratio] 10 [facility] 05-30 07:33 -0500 BUN/Creatinine Ratio 10 10.0 - 25.0 Ratio 05/30/2023 7:33 AM [facility] Calcium [Mass/Vol] 7.7 mg/dL Low 8.7 - 10.5 mg/dL [facility] 05-30 07:33 -0500 Calcium 7.7 (L) 8.7 - 10.5 mg/dL 05/30/2023 7:33 AM [facility] Chloride [Moles/Vol] 106 mmol/L 98 - 107 mmol/L [facility] 05-30 07:33 -0500 Chloride 106 98 - 107 mmol/L 05/30/2023 7:33 AM [facility] CO2 [Moles/Vol] 21 mmol/L Low 22 - 33 mmol/L [facility] 05-30 07:33 -0500 CO2 21 (L) 22 - 33 mmol/L 05/30/2023 7:33 AM [facility] Creatinine [Mass/Vol] 0.6 mg/dL 0.4 - 1.1 mg/dL [facility] 05-30 07:33 -0500 Creatinine 0.6 0.4 - 1.1 mg/dL 05/30/2023 7:33 AM [facility] Glucose [Mass/Vol] 60 mg/dL Low 65 - 99 mg/dL [facility] 05-30 07:33 -0500 Glucose 60 (L) 65 - 99 mg/dL 05/30/2023 7:33 AM [facility] Comment on above: Fasting: <100 mg/dL, Non-Fasting: <200 m g/dL (ADA 2005) Potassium [Moles/Vol] 3.3 mmol/L Low 3.4 - 5.3 mmol/L [facility] 05-30 07:33 -0500 Potassium 3.3 (L) 3.4 - 5.3 mmol/L 05/30/2023 7:33 AM [facility] Protein [Mass/Vol] 5.5 g/dL Low 6.3 - 8.3 g/dL [facility] 05-30 07:33 -0500 Protein, Total 5.5 (L) 6.3 - 8.3 g/dL 05/30/2023 7:33 AM [facility] Sodium [Moles/Vol] 140 mmol/L 136 - 145 mmol/L [facility] 05-30 07:33 -0500 Sodium 140 136 - 145 mmol/L 05/30/2023 7:33 AM [facility] Urea nitrogen [Mass/Vol] 6 mg/dL Low 8 - 21 mg/dL [facility] 05-30 07:33 -0500 Blood Urea Nitrogen (BUN) 6 (L) 8 - 21 mg/dL 05/30/2023 7:33 AM [facility] GFR/1.73 sq M.predicted CKD-EPI (S/P/Bld) [Vol rate/Area] <PINF >90 59 - PINF [facility] 05-30 07:33 -0500 eGFR >90 >59 05/30/2023 7:33 AM [facility] Comment on above: CKD-EPI (2021) in mL/min/1.73 sq meters. Globulin Calc (S) [Mass/Vol] 2.3 g/dL 1.5 - 3.9 g/dL [facility] 05-30 07:33 -0500 Globulin 2.3 1.5 - 3.9 g/dL 05/30/2023 7:33 AM [facility] Albumin/Globu lydia [Mass ratio] 1.4 [facility] 05-30 07:33 -0500 Albumin/Globuli n Ratio 1.4 1.0 - 3.0 Ratio 05/30/2023 7:33 AM [facility] Anion gap (Bld) [Moles/Vol] 13 7 - 17 [facility] 05-30 07:33 -0500 Anion Gap 13 7 - 17 05/30/2023 7:33 AM [facility] Emergency Department (DEEDS) variableson 05-30-2023 Interpretatio n and review of laboratory results Abnormal [facility] 05-30 07:33 -0500 LIPASEon 05-30-2023 Lipase [Catalytic activity/Vol] 62 U/L High 13 - 60 U/L [facility] 05-30 08:48 -0500 Lipase 62 (H) 13 - 60 U/L 05/30/2023 8:48 AM [facility] Interpretatio n and review of laboratory results Abnormal [facility] 05-30 08:48 -0500 [facility] 05-30 08:48 -0500 MAGNESIUMon 05-30-2023 Magnesium [Mass/Vol] 1.1 mg/dL Low 1.6 - 2.7 mg/dL [facility] 05-30 07:33 -0500 Magnesium 1.1 (L) 1.6 - 2.7 mg/dL 05/30/2023 7:33 AM [facility] No Panel Informationon 05-30 [facility] 05-30 07:33 -0500 PHOSPHORUSon 05-30-2023 Phosphate [Mass/Vol] 1.5 mg/dL Low 2.7 - 4.5 mg/dL [facility] 05-30 07:33 -0500 Phosphorus 1.5 (L) 2.7 - 4.5 mg/dL 05/30/2023 7:33 AM [facility] Complete Blood Count, withou t Differentialon 05-29-2023 RBC Auto (Bld) [#/Vol] 2.65 Low [facility] 05-29 06:59 -0500 Red Blood Cell Count 2.65 (L) 4.00 - 5.40 Mil/uL 05/29/2023 6:59 AM [facility] Hematocrit Auto (Bld) [Volume fraction] 29.9 % Low 35.0 - 47.0 % [facility] 05-29 06:59 -0500 Hematocrit 29.9 (L) 35.0 - 47.0 % 05/29/2023 6:59 AM [facility] Hemoglobin (Bld) [Mass/Vol] 9.4 g/dL Low 11.7 - 15.7 g/dL [facility] 05-29 06:59 -0500 Hemoglobin 9.4 (L) 11.7 - 15.7 g/dL 05/29/2023 6:59 AM [facility] MCH Auto (RBC) [Entitic mass] 35.5 pg High 27.0 - 31.0 pg [facility] 05-29 06:59 -0500 MCH 35.5 (H) 27.0 - 31.0 pg 05/29/2023 6:59 AM [facility] MCHC Auto (RBC) [Mass/Vol] 31.4 g/dL 30.0 - 36.0 g/dL [facility] 05-29 06:59 -0500 MCHC 31.4 30.0 - 36.0 g/dL 05/29/2023 6:59 AM [facility] MCV Auto (RBC) [Entitic vol] 113 fL High 80 - 100 fL [facility] 05-29 06:59 -0500 MCV 113 (H) 80 - 100 fL 05/29/2023 6:59 AM [facility] Platelet mean volume Auto (Bld) [Entitic vol] 11.9 fL 7.5 - 12.5 fL [facility] 05-29 06:59 -0500 MPV 11.9 7.5 - 12.5 fL 05/29/2023 6:59 AM [facility] Platelets Auto (Bld) [#/Vol] 180 [facility] 05-29 06:59 -0500 Platelet Count 180 150 - 450 Thou/uL 05/29/2023 6:59 AM [facility] Erythrocyte distribution width Auto (RBC) [Ratio] 16.7 % High 11.5 - 14.5 % [facility] 05-29 06:59 -0500 RDW 16.7 (H) 11.5 - 14.5 % 05/29/2023 6:59 AM [facility] WBC Auto (Bld) [#/Vol] 4.7 [facility] 05-29 06:59 -0500 White Blood Cell Count 4.7 4.0 - 11.0 Thou/uL 05/29/2023 6:59 AM [facility] Comprehensive Metabolic Pane karel 05-29-2023 ALT [Catalytic activity/Vol] 132 U/L High 10 - 50 U/L [facility] 05-29 07:04 -0500 Alanine Aminotrans (ALT) 132 (H) 10 - 50 U/L 05/29/2023 7:04 AM [facility] Albumin [Mass/Vol] 3.4 g/dL 3.4 - 4.8 g/dL [facility] 05-29 07:04 -0500 Albumin 3.4 3.4 - 4.8 g/dL 05/29/2023 7:04 AM [facility] ALP [Catalytic activity/Vol] 359 U/L High 32 - 122 U/L [facility] 05-29 07:04 -0500 Alkaline Phosphatase 359 (H) 32 - 122 U/L 05/29/2023 7:04 AM [facility] AST [Catalytic activity/Vol] 164 U/L High 10 - 50 U/L [facility] 05-29 07:04 -0500 Aspartate Aminotrans (AST) 164 (H) 10 - 50 U/L 05/29/2023 7:04 AM [facility] Bilirubin [Mass/Vol] 4.5 mg/dL High 0.2 - 1.0 mg/dL [facility] 05-29 07:04 -0500 Bilirubin, Total 4.5 (H) 0.2 - 1.0 mg/dL 05/29/2023 7:04 AM [facility] Urea nitrogen/Crea tinine [Mass ratio] 11 [facility] 05-29 07:04 -0500 BUN/Creatinine Ratio 11 10.0 - 25.0 Ratio 05/29/2023 7:04 AM [facility] Calcium [Mass/Vol] 8.1 mg/dL Low 8.7 - 10.5 mg/dL [facility] 05-29 07:04 -0500 Calcium 8.1 (L) 8.7 - 10.5 mg/dL 05/29/2023 7:04 AM [facility] Chloride [Moles/Vol] 102 mmol/L 98 - 107 mmol/L [facility] 05-29 07:04 -0500 Chloride 102 98 - 107 mmol/L 05/29/2023 7:04 AM [facility] CO2 [Moles/Vol] 25 mmol/L 22 - 33 mmol/L [facility] 05-29 07:04 -0500 CO2 25 22 - 33 mmol/L 05/29/2023 7:04 AM [facility] Creatinine [Mass/Vol] 0.7 mg/dL 0.4 - 1.1 mg/dL [facility] 05-29 07:04 -0500 Creatinine 0.7 0.4 - 1.1 mg/dL 05/29/2023 7:04 AM [facility] Glucose [Mass/Vol] 74 mg/dL 65 - 99 mg/dL [facility] 05-29 07:04 -0500 Glucose 74 65 - 99 mg/dL 05/29/2023 7:04 AM [facility] Comment on above: Fasting: <100 mg/dL, Non-Fasting: <200 m g/dL (ADA 2005) Potassium [Moles/Vol] 3.8 mmol/L 3.4 - 5.3 mmol/L [facility] 05-29 07:04 -0500 Potassium 3.8 3.4 - 5.3 mmol/L 05/29/2023 7:04 AM [facility] Protein [Mass/Vol] 5.5 g/dL Low 6.3 - 8.3 g/dL [facility] 05-29 07:04 -0500 Protein, Total 5.5 (L) 6.3 - 8.3 g/dL 05/29/2023 7:04 AM [facility] Sodium [Moles/Vol] 138 mmol/L 136 - 145 mmol/L [facility] 05-29 07:04 -0500 Sodium 138 136 - 145 mmol/L 05/29/2023 7:04 AM [facility] Urea nitrogen [Mass/Vol] 8 mg/dL 8 - 21 mg/dL [facility] 05-29 07:04 -0500 Blood Urea Nitrogen (BUN) 8 8 - 21 mg/dL 05/29/2023 7:04 AM [facility] GFR/1.73 sq M.predicted CKD-EPI (S/P/Bld) [Vol rate/Area] <PINF >90 59 - PINF [facility] 05-29 07:04 -0500 eGFR >90 >59 05/29/2023 7:04 AM [facility] Comment on above: CKD-EPI (2020) in mL/min/1.73 sq meters. Globulin Calc (S) [Mass/Vol] 2.1 g/dL 1.5 - 3.9 g/dL [facility] 05-29 07:04 -0500 Globulin 2.1 1.5 - 3.9 g/dL 05/29/2023 7:04 AM [facility] Albumin/Globu lydia [Mass ratio] 1.6 [facility] 05-29 07:04 -0500 Albumin/Globuli n Ratio 1.6 1.0 - 3.0 Ratio 05/29/2023 7:04 AM [facility] Anion gap (Bld) [Moles/Vol] 11 7 - 17 [facility] 05-29 07:04 -0500 Anion Gap 11 7 - 17 05/29/2023 7:04 AM [facility] Emergency Department (DEEDS) variableson 05-29-2023 Interpretatio n and review of laboratory results Abnormal [facility] 05-29 07:04 -0500 [place] ERCPon 05-29-2023 FINDINGS/IMPRE SSION: The initial image demonstrates the endoscope projecting over the proximal duodenum. There is retrograde cannulization and injection of contrast through the pancreatic and common bile ducts. The proximal portion of the pancreatic duct is stenotic. The lower portion of the common bile duct is opacified, however the remainder of the common bile duct and biliary tree is not opacified. Per technologist report, stents were placed in the pancreatic duct and common bile duct.. Please correlate with the full procedural report for further details. Giovanny Donato MD [employer] Reporter I personally reviewed the images and, if necessary, I edited the report. I agree with the report as now presented. [facility] 05-30 09:20 -0500 FINDINGS/IMPRES BALJIT: The initial image demonstrates the endoscope projecting over the proximal duodenum. There is retrograde cannulization and injection of contrast through the pancreatic and common bile ducts. The proximal portion of the pancreatic duct is stenotic. The lower portion of the common bile duct is opacified, however the remainder of the common bile duct and biliary tree is not opacified. Per technologist report, stents were placed in the pancreatic duct and common bile duct.. Please correlate with the full procedural report for further details. Giovanny Donato MD [employer] I personally reviewed the images and, if necessary, I edited the report. I agree with the report as now presented. EXAMINATION: ERCP INDICATION: Biliary stricture. TECHNIQUE: Intraoperative fluoroscopic assistance was used by Dr. Capps to perform an ERCP. 16 images were provided for review. Contrast administered: Omnipaque 350. Fluoroscopic time: 3.6 minutes. DAP: : 5.95 Gy-cm2 COMPARISON: None prior. [facility] 05-30 09:20 -0500 EXAMINATION: ERCP INDICATION: Biliary stricture. TECHNIQUE: Intraoperative fluoroscopic assistance was used by Dr. Capps to perform an ERCP. 16 images were provided for review. Contrast administered: Omnipaque 350. Fluoroscopic time: 3.6 minutes. DAP: : 5.95 Gy-cm2 COMPARISON: None prior. Stevie Jennings MD - 05/30/2023 EXAMINATION: ERCP INDICATION: Biliary stricture. TECHNIQUE: Intraoperative fluoroscopic assistance was used by Dr. Capps to perform an ERCP. 16 images were provided for review. Contrast administered: Omnipaque 350. Fluoroscopic time: 3.6 minutes. DAP: : 5.95 Gy-cm2 COMPARISON: None prior. IMPRESSION: FINDINGS/IMPRE SSION: The initial image demonstrates the endoscope projecting over the proximal duodenum. There is retrograde cannulization and injection of contrast through the pancreatic and common bile ducts. The proximal portion of the pancreatic duct is stenotic. The lower portion of the common bile duct is opacified, however the remainder of the common bile duct and biliary tree is not opacified. Per technologist report, stents were placed in the pancreatic duct and common bile duct.. Please correlate with the full procedural report for further details. Giovanny Donato MD [employer] Reporter I personally reviewed the images and, if necessary, I edited the report. I agree with the report as now presented. [facility] 05-30 09:20 0500 Stevie Jennings MD - 05/30/2023 EXAMINATION: ERCP INDICATION: Biliary stricture. TECHNIQUE: Intraoperative fluoroscopic assistance was used by Dr. Capps to perform an ERCP. 16 images were provided for review. Contrast administered: Omnipaque 350. Fluoroscopic time: 3.6 minutes. DAP: : 5.95 Gy-cm2 COMPARISON: None prior. IMPRESSION: FINDINGS/IMPRES BALJIT: The initial image demonstrates the endoscope projecting over the proximal duodenum. There is retrograde cannulization and injection of contrast through the pancreatic and common bile ducts. The proximal portion of the pancreatic duct is stenotic. The lower portion of the common bile duct is opacified, however the remainder of the common bile duct and biliary tree is not opacified. Per technologist report, stents were placed in the pancreatic duct and common bile duct.. Please correlate with the full procedural report for further details. Giovanny Donato MD [employer] Reporter I personally reviewed the images and, if necessary, I edited the report. I agree with the report as now presented. Radiology Study observation (narrative) [facility] ERCPOrdered By: Stevie Reynoso on 05-29-2023 [facility] Work Phone: 05-30 09:20 -0500 Magnesiumon 05-29-2023 Magnesium [Mass/Vol] 1.3 mg/dL Low 1.6 - 2.7 mg/dL [facility] 05-29 07:04 -0500 Magnesium 1.3 (L) 1.6 - 2.7 mg/dL 05/29/2023 7:04 AM [facility] No Panel Informationon 05-29 [facility] 05-29 07:04 -0500 Complete Blood Count, with D ifferentialon 05-28-2023 Basophils Auto (Bld) [#/Vol] 0.04 [facility] 05-28 08:08 -0500 Abs Basophils Auto 0.04 0.00 - 0.20 Thou/uL 05/28/2023 8:08 AM [facility] Basophils/100 WBC Auto (Bld) 0.7 % [facility] 05-28 08:08 -0500 Basophils Auto 0.7 % 05/28/2023 8:08 AM [facility] Eosinophils Auto (Bld) [#/Vol] 0.17 [facility] 05-28 08:08 -0500 Abs Eosinophils Auto 0.17 0.00 - 0.70 Thou/uL 05/28/2023 8:08 AM [facility] Eosinophils/1 00 WBC Auto (Bld) 3.0 % [facility] 05-28 08:08 -0500 Eosinophils Auto 3.0 % 05/28/2023 8:08 AM [facility] RBC Auto (Bld) [#/Vol] 2.85 Low [facility] 05-28 08:08 -0500 Red Blood Cell Count 2.85 (L) 4.00 - 5.40 Mil/uL 05/28/2023 8:08 AM [facility] Hematocrit Auto (Bld) [Volume fraction] 31.8 % Low 35.0 - 47.0 % [facility] 05-28 08:08 -0500 Hematocrit 31.8 (L) 35.0 - 47.0 % 05/28/2023 8:08 AM [facility] Hemoglobin (Bld) [Mass/Vol] 10.1 g/dL Low 11.7 - 15.7 g/dL [facility] 05-28 08:08 -0500 Hemoglobin 10.1 (L) 11.7 - 15.7 g/dL 05/28/2023 8:08 AM [facility] Lymphocytes Auto (Bld) [#/Vol] 1.74 [facility] 01-08 -2024 08:08 -0500 Abs Lymphocytes Auto 1.74 1.50 - 4.50 Thou/uL 05/28/2023 8:08 AM [facility] Lymphocytes/1 00 WBC Auto (Bld) 30.3 % [facility] 05-28 08:08 -0500 Lymphocytes Auto 30.3 % 05/28/2023 8:08 AM [facility] MCH Auto (RBC) [Entitic mass] 35.4 pg High 27.0 - 31.0 pg [facility] 05-28 08:08 -0500 MCH 35.4 (H) 27.0 - 31.0 pg 05/28/2023 8:08 AM [facility] MCHC Auto (RBC) [Mass/Vol] 31.8 g/dL 30.0 - 36.0 g/dL [facility] 05-28 08:08 -0500 MCHC 31.8 30.0 - 36.0 g/dL 05/28/2023 8:08 AM [facility] MCV Auto (RBC) [Entitic vol] 112 fL High 80 - 100 fL [facility] 05-28 08:08 -0500 MCV 112 (H) 80 - 100 fL 05/28/2023 8:08 AM [facility] Monocytes Auto (Bld) [#/Vol] 0.58 [facility] 05-28 08:08 -0500 Abs Monocytes Auto 0.58 0.20 - 1.50 Thou/uL 05/28/2023 8:08 AM [facility] Monocytes/100 WBC Auto (Bld) 10.1 % [facility] 05-28 08:08 -0500 Monocytes Auto 10.1 % 05/28/2023 8:08 AM [facility] Neutrophils Auto (Bld) [#/Vol] 3.18 [facility] 05-28 08:08 -0500 Abs Neutrophils Auto 3.18 2.00 - 7.50 Thou/uL 05/28/2023 8:08 AM [facility] Neutrophils/1 00 WBC Auto (Bld) 55.4 % [facility] 05-28 08:08 -0500 Neutrophils Auto 55.4 % 05/28/2023 8:08 AM [facility] Platelet mean volume Auto (Bld) [Entitic vol] 11.5 fL 7.5 - 12.5 fL [facility] 05-28 08:08 -0500 MPV 11.5 7.5 - 12.5 fL 05/28/2023 8:08 AM [facility] Platelets Auto (Bld) [#/Vol] 208 [facility] 05-28 08:08 -0500 Platelet Count 208 150 - 450 Thou/uL 05/28/2023 8:08 AM [facility] Erythrocyte distribution width Auto (RBC) [Ratio] 16.9 % High 11.5 - 14.5 % [facility] 05-28 08:08 -0500 RDW 16.9 (H) 11.5 - 14.5 % 05/28/2023 8:08 AM [facility] WBC Auto (Bld) [#/Vol] 5.7 [facility] 05-28 08:08 -0500 White Blood Cell Count 5.7 4.0 - 11.0 Thou/uL 05/28/2023 8:08 AM [facility] Immature granulocytes/ 100 WBC Auto (Bld) 0.5 % [facility] 05-28 08:08 -0500 Immature Granulocytes 0.5 % 05/28/2023 8:08 AM [facility] Immature granulocytes Auto (Bld) [#/Vol] 0.03 [facility] 05-28 08:08 -0500 Abs Immature Granulocytes 0.03 0.00 - 0.10 Thou/uL 05/28/2023 8:08 AM [facility] Comprehensive Metabolic Pane karel 05-28-2023 ALT [Catalytic activity/Vol] 136 U/L High 10 - 50 U/L [facility] 05-28 08:14 -0500 Alanine Aminotrans (ALT) 136 (H) 10 - 50 U/L 05/28/2023 8:14 AM [facility] Albumin [Mass/Vol] 3.6 g/dL 3.4 - 4.8 g/dL [facility] 05-28 08:14 -0500 Albumin 3.6 3.4 - 4.8 g/dL 05/28/2023 8:14 AM [facility] ALP [Catalytic activity/Vol] 292 U/L High 32 - 122 U/L [facility] 05-28 08:14 -0500 Alkaline Phosphatase 292 (H) 32 - 122 U/L 05/28/2023 8:14 AM [facility] AST [Catalytic activity/Vol] 158 U/L High 10 - 50 U/L [facility] 05-28 08:14 -0500 Aspartate Aminotrans (AST) 158 (H) 10 - 50 U/L 05/28/2023 8:14 AM [facility] Bilirubin [Mass/Vol] 3.6 mg/dL High 0.2 - 1.0 mg/dL [facility] 05-28 08:14 -0500 Bilirubin, Total 3.6 (H) 0.2 - 1.0 mg/dL 05/28/2023 8:14 AM [facility] Urea nitrogen/Crea tinine [Mass ratio] 12 [facility] 05-28 08:14 -0500 BUN/Creatinine Ratio 12 10.0 - 25.0 Ratio 05/28/2023 8:14 AM [facility] Calcium [Mass/Vol] 8.9 mg/dL 8.7 - 10.5 mg/dL [facility] 05-28 08:14 -0500 Calcium 8.9 8.7 - 10.5 mg/dL 05/28/2023 8:14 AM [facility] Chloride [Moles/Vol] 103 mmol/L 98 - 107 mmol/L [facility] 05-28 08:14 -0500 Chloride 103 98 - 107 mmol/L 05/28/2023 8:14 AM [facility] CO2 [Moles/Vol] 25 mmol/L 22 - 33 mmol/L [facility] 05-28 08:14 -0500 CO2 25 22 - 33 mmol/L 05/28/2023 8:14 AM [facility] Creatinine [Mass/Vol] 0.6 mg/dL 0.4 - 1.1 mg/dL [facility] 05-28 08:14 -0500 Creatinine 0.6 0.4 - 1.1 mg/dL 05/28/2023 8:14 AM [facility] Glucose [Mass/Vol] 64 mg/dL Low 65 - 99 mg/dL [facility] 05-28 08:14 -0500 Glucose 64 (L) 65 - 99 mg/dL 05/28/2023 8:14 AM [facility] Comment on above: Fasting: <100 mg/dL, Non-Fasting: <200 m g/dL (ADA 2005) Potassium [Moles/Vol] 4.1 mmol/L 3.4 - 5.3 mmol/L [facility] 05-28 08:14 -0500 Potassium 4.1 3.4 - 5.3 mmol/L 05/28/2023 8:14 AM [facility] Protein [Mass/Vol] 5.7 g/dL Low 6.3 - 8.3 g/dL [facility] 05-28 08:14 0500 Protein, Total 5.7 (L) 6.3 - 8.3 g/dL 05/28/2023 8:14 AM [facility] Sodium [Moles/Vol] 138 mmol/L 136 - 145 mmol/L [facility] 05-28 08:14 0500 Sodium 138 136 - 145 mmol/L 05/28/2023 8:14 AM [facility] Urea nitrogen [Mass/Vol] 7 mg/dL Low 8 - 21 mg/dL [facility] 05-28 08:14 -0500 Blood Urea Nitrogen (BUN) 7 (L) 8 - 21 mg/dL 05/28/2023 8:14 AM [facility] GFR/1.73 sq M.predicted CKD-EPI (S/P/Bld) [Vol rate/Area] <PINF >90 59 - PINF [facility] 05-28 08:14 0500 eGFR >90 >59 05/28/2023 8:14 AM [facility] Comment on above: CKD-EPI (2020) in mL/min/1.73 sq meters. Globulin Calc (S) [Mass/Vol] 2.1 g/dL 1.5 - 3.9 g/dL [facility] 05-28 08:14 -0500 Globulin 2.1 1.5 - 3.9 g/dL 05/28/2023 8:14 AM [facility] Albumin/Globu lydia [Mass ratio] 1.7 [place] [facility] 08[facility]00 Albumin/Globuli n Ratio 1.7 1.0 - 3.0 Ratio 05/28/2023 8:14 AM [facility] Anion gap (Bld) [Moles/Vol] 10 7 - 17 [facility] 05-28 08:14 -0500 Anion Gap 10 7 - 17 05/28/2023 8:14 AM [facility] Emergency Department (DEEDS) variableson 05-28-2023 Interpretatio n and review of laboratory results Abnormal [facility] 05-28 08:14 -0500 Influenza A/B, RSV, SARS-CoV -2 YESSENIA Multiplexon 05-28-2023 FLUAV RNA YESSENIA+probe Ql (Upper resp) Not detected Not Detected [facility] 05-28 10:24 -0500 Influenza A Virus Not Detected Not Detected 05/28/2023 10:24 AM [facility] FLUBV RNA YESSENIA+probe Ql (Upper resp) Not detected Not Detected [facility] 05-28 10:24 -0500 Influenza B Virus Not Detected Not Detected 05/28/2023 10:24 AM [facility] SARS-CoV-2 (COVID-19) RNA YESSENIA+probe Ql (Specimen) Not detected Not Detected [facility] 05-28 10:24 -0500 SARS-CoV-2 Not Detected Not Detected 05/28/2023 10:24 AM [facility] RSV RNA YESSENIA+probe Ql (Upper resp) Not detected Not Detected [facility] 05-28 10:24 -0500 Respiratory Syncytial Virus Not Detected Not Detected 05/28/2023 10:24 AM [facility] Comment Negative results do not preclude SARS-CoV-2, Influenza or RSV infection and should not be used as the sole basis for treatment or other patient management decisions. [facility] 05-28 10:24 -0500 Comment Negative results do not preclude SARS-CoV-2, Influenza or RSV infection and should not be used as the sole basis for treatment or other patient management decisions. 05/28/2023 10:24 AM [facility] Comment on above: The Influenza A/B, RSV, SARS-CoV-2 (COVI D-19) plus Multiplex Nucleic Acid Amplification Assay is limited to laboratories certified under the Clinical Laboratory Improvement Amendments of 1988 (CLIA), 42 U.S.C. 263a, to perform high complexity tests. Nucleic acid amplification tests include RT-PCR and TMA authorized by the Food and Drug Administration (FDA) under an Emergency Use Authorization (EUA). Validation was completed and performance characteristics established by the [facility] as per the FDA/CLIA requirement for this EUA. The [employer] Xpert Xpress SARS-CoV-2/Flu/RSV plus assayLetter of Authorization, along with the authorized Fact Sheet for Healthcare Providers, the authorized Fact Sheet for Patients, and authorized labeling are available on the FDA website: https://www.fda.gov/medical-devices/zhzposzfhdh-vjitmbv-2715-covid-19-em kppxbxr-kzs-hcdxbppzfpbjrf-medical-devices/ry-byjbu-thlmkbbzmqj-euas-mol uowsph-wcbvvsywob-yiahi-sars-cov-2 Factsheet for patients: https://www.fda.gov/media/968329/download Factsheet for providers: https://www.fda.gov/media/860930/download Letter of authorization: https://www.fda.gov/media/022682/download Package insert: https://www.fda.gov/media/113443/download [facility] 05-28 10:24 -0500 Lactic Acid, Plasmaon 2023 Lactate [Moles/Vol] 0.5 mmol/L 0.5 - 1.9 mmol/L [facility] 05-28 07:58 -0500 Lactic Acid 0.5 0.5 - 1.9 mmol/L 05/28/2023 7:58 AM [facility] Magnesiumon 05-28-2023 Magnesium [Mass/Vol] 1.3 mg/dL Low 1.6 - 2.7 mg/dL [facility] 05-28 08:14 -0500 Magnesium 1.3 (L) 1.6 - 2.7 mg/dL 05/28/2023 8:14 AM [facility] No Panel Informationon 05-28 [facility] 05-28 08:14 -0500 Procalcitoninon 05-28-2023 Procalcitonin IA [Mass/Vol] 0.13 ng/mL High NINF - 0.09 ng/mL [facility] 05-28 08:03 -0500 Procalcitonin 0.13 (H) <0.09 ng/mL 05/28/2023 8:03 AM [facility] Comment on above: (NOTE) Procalcitonin (PCT) Guided Antibiotic Management for Respiratory Infection Initial PCT interpretation: < 0.09 ng/mL: Antibiotics NOT likely needed (bacterial etiology very unlikely). 0.09 - 0.25 ng/mL: Antibiotics are NOT likely needed unless clinical concern for infection (bacterial etiology unlikely). 0.26 - 0.5 ng/mL: Antibiotics likely needed (bacterial etiology likely). Repeat PCT after 3-5 days. > 0.5 ng/mL: Antibiotics likely needed (bacterial etiology very likely). Repeat PCT after 3-5 days. Repeat PCT interpretation: Initial PCT < 5 ng/mL: Consider stopping antibiotics when PCT < 0.25 ng/mL. Initial PCT > 5 ng/mL: Consider stopping antibiotics when 80% reduction in PCT from initial value or PCT < 0.25 ng/mL. The above interpretative values are not appropriate for non-respiratory infectious diagnostics Acetaminophen Levelon 2023 Acetaminophen [Mass/Vol] <5 >NINF mg/L Low 10 - 30 mg/L [facility] 05-27 20:21 -0500 Acetaminophen Level <5 (L) 10 - 30 mg/L 05/27/2023 8:21 PM [facility] Ammonia Levelon 05-27-2023 Ammonia (P) [Moles/Vol] 21 umol/L 11 - 51 umol/L [facility] 05-27 20:37 -0500 Ammonia, Plasma 21 11 - 51 umol/L 05/27/2023 8:37 PM [facility] Amphetamine Screen, Urineon 05-27-2023 Amphetamines Ql (U) Negative Negative <1000 ng/mL [facility] 05-27 20:15 -0500 Amphetamine Screen, Urine Negative Negative <1000 ng/mL 05/27/2023 8:15 PM [facility] Comment on above: * FOR MEDICAL PURPOSES ONLY * Barbiturate Screen, Urineon 05-27-2023 Barbiturates Screen method >200 ng/mL Ql (U) Negative Negative <200 ng/mL [facility] 05-27 20:15 -0500 Barbiturate Screen, Urine Negative Negative <200 ng/mL 05/27/2023 8:15 PM [facility] Comment on above: * FOR MEDICAL PURPOSES ONLY * Benzodiazepine Screen, Urine on 05-27-2023 Benzodiazepin es Screen method >200 ng/mL Ql (U) Negative Negative <200 ng/mL [facility] 05-27 20:15 -0500 Benzodiazepine Screen, Urine Negative Negative <200 ng/mL 05/27/2023 8:15 PM [facility] Comment on above: * FOR MEDICAL PURPOSES ONLY * Buprenorphine Screen, Urineo n 05-27-2023 Buprenorphine Ql (U) Negative Negative <5 ng/mL [facility] 05-27 20:15 -0500 Buprenorphine Screen, Urine Negative Negative <5 ng/mL 05/27/2023 8:15 PM [facility] Comment on above: * FOR MEDICAL PURPOSES ONLY * C-REACTIVE PROTEINon 024 CRP [Mass/Vol] 0.40 mg/dL 0 - 0.49 mg/dL [facility] 05-27 20:48 -0500 C-Reactive Protein 0.40 0 - 0.49 mg/dL 05/27/2023 8:48 PM [facility] Cannabinoid Screen, Urineon 05-27-2023 Cannabinoids Screen method >50 ng/mL Ql (U) Positive Abnormal Negative <50 ng/mL [facility] 05-27 20:15 -0500 Cannabinoid Screen, Urine Positive (A) Negative <50 ng/mL 05/27/2023 8:15 PM [facility] Comment on above: * FOR MEDICAL PURPOSES ONLY * Confirmation upon request. Cocaine Screen, Urineon Benzoylecgoni ne Ql (U) Negative Negative <300 ng/mL [facility] 05-27 20:15 -0500 Cocaine Screen, Urine Negative Negative <300 ng/mL 05/27/2023 8:15 PM [facility] Comment on above: * FOR MEDICAL PURPOSES ONLY * Complete Blood Count, with D ifferentialon 05-27-2023 Basophils Auto (Bld) [#/Vol] 0.04 [facility] 05-27 17:30 -0500 Abs Basophils Auto 0.04 0.00 - 0.20 Thou/uL 05/27/2023 5:30 PM [facility] Basophils/100 WBC Auto (Bld) 0.5 % [facility] 05-27 17:30 -0500 Basophils Auto 0.5 % 05/27/2023 5:30 PM [facility] Eosinophils Auto (Bld) [#/Vol] 0.10 [facility] 05-27 17:30 -0500 Abs Eosinophils Auto 0.10 0.00 - 0.70 Thou/uL 05/27/2023 5:30 PM [facility] Eosinophils/1 00 WBC Auto (Bld) 1.4 % [facility] 05-27 17:30 -0500 Eosinophils Auto 1.4 % 05/27/2023 5:30 PM [facility] RBC Auto (Bld) [#/Vol] 3.26 Low [facility] 05-27 17:30 -0500 Red Blood Cell Count 3.26 (L) 4.00 - 5.40 Mil/uL 05/27/2023 5:30 PM [facility] Hematocrit Auto (Bld) [Volume fraction] 36.3 % 35.0 - 47.0 % [facility] 05-27 17:30 -0500 Hematocrit 36.3 35.0 - 47.0 % 05/27/2023 5:30 PM [facility] Hemoglobin (Bld) [Mass/Vol] 11.3 g/dL Low 11.7 - 15.7 g/dL [facility] 05-27 17:30 -0500 Hemoglobin 11.3 (L) 11.7 - 15.7 g/dL 05/27/2023 5:30 PM [facility] Lymphocytes Auto (Bld) [#/Vol] 1.65 [facility] 05-27 17:30 -0500 Abs Lymphocytes Auto 1.65 1.50 - 4.50 Thou/uL 05/27/2023 5:30 PM [facility] Lymphocytes/1 00 WBC Auto (Bld) 22.7 % [facility] 05-27 17:30 -0500 Lymphocytes Auto 22.7 % 05/27/2023 5:30 PM [facility] MCH Auto (RBC) [Entitic mass] 34.7 pg High 27.0 - 31.0 pg [facility] 05-27 17:30 -0500 MCH 34.7 (H) 27.0 - 31.0 pg 05/27/2023 5:30 PM [facility] MCHC Auto (RBC) [Mass/Vol] 31.1 g/dL 30.0 - 36.0 g/dL [facility] 05-27 17:30 -0500 MCHC 31.1 30.0 - 36.0 g/dL 05/27/2023 5:30 PM [facility] MCV Auto (RBC) [Entitic vol] 111 fL High 80 - 100 fL [facility] 05-27 17:30 -0500 MCV 111 (H) 80 - 100 fL 05/27/2023 5:30 PM [facility] Monocytes Auto (Bld) [#/Vol] 0.74 [facility] 05-27 17:30 -0500 Abs Monocytes Auto 0.74 0.20 - 1.50 Thou/uL 05/27/2023 5:30 PM [facility] Monocytes/100 WBC Auto (Bld) 10.2 % [facility] 05-27 17:30 -0500 Monocytes Auto 10.2 % 05/27/2023 5:30 PM [facility] Neutrophils Auto (Bld) [#/Vol] 4.65 [facility] 05-27 17:30 -0500 Abs Neutrophils Auto 4.65 2.00 - 7.50 Thou/uL 05/27/2023 5:30 PM [facility] Neutrophils/1 00 WBC Auto (Bld) 63.8 % [facility] 05-27 17:30 -0500 Neutrophils Auto 63.8 % 05/27/2023 5:30 PM [facility] Platelet mean volume Auto (Bld) [Entitic vol] 11.4 fL 7.5 - 12.5 fL [facility] 05-27 17:30 -0500 MPV 11.4 7.5 - 12.5 fL 05/27/2023 5:30 PM [facility] Platelets Auto (Bld) [#/Vol] 223 [facility] 05-27 17:30 -0500 Platelet Count 223 150 - 450 Thou/uL 05/27/2023 5:30 PM [facility] Erythrocyte distribution width Auto (RBC) [Ratio] 16.6 % High 11.5 - 14.5 % [facility] 05-27 17:30 -0500 RDW 16.6 (H) 11.5 - 14.5 % 05/27/2023 5:30 PM [facility] WBC Auto (Bld) [#/Vol] 7.3 [facility] 05-27 17:30 -0500 White Blood Cell Count 7.3 4.0 - 11.0 Thou/uL 05/27/2023 5:30 PM [facility] Immature granulocytes/ 100 WBC Auto (Bld) 1.4 % [facility] 05-27 17:30 -0500 Immature Granulocytes 1.4 % 05/27/2023 5:30 PM [facility] Immature granulocytes Auto (Bld) [#/Vol] 0.10 [facility] 05-27 17:30 -0500 Abs Immature Granulocytes 0.10 0.00 - 0.10 Thou/uL 05/27/2023 5:30 PM [facility] Comprehensive Metabolic Pane karel 05-27-2023 ALT [Catalytic activity/Vol] 162 U/L High 10 - 50 U/L [facility] 05-27 17:41 -0500 Alanine Aminotrans (ALT) 162 (H) 10 - 50 U/L 05/27/2023 5:41 PM [facility] Albumin [Mass/Vol] 4.1 g/dL 3.4 - 4.8 g/dL [facility] 05-27 17:41 -0500 Albumin 4.1 3.4 - 4.8 g/dL 05/27/2023 5:41 PM [facility] ALP [Catalytic activity/Vol] 304 U/L High 32 - 122 U/L [facility] 05-27 17:41 -0500 Alkaline Phosphatase 304 (H) 32 - 122 U/L 05/27/2023 5:41 PM [facility] AST [Catalytic activity/Vol] 177 U/L High 10 - 50 U/L [facility] 05-27 17:41 -0500 Aspartate Aminotrans (AST) 177 (H) 10 - 50 U/L 05/27/2023 5:41 PM [facility] Bilirubin [Mass/Vol] 2.8 mg/dL High 0.2 - 1.0 mg/dL [facility] 05-27 17:41 -0500 Bilirubin, Total 2.8 (H) 0.2 - 1.0 mg/dL 05/27/2023 5:41 PM [facility] Urea nitrogen/Crea tinine [Mass ratio] 13 [facility] 05-27 17:41 -0500 BUN/Creatinine Ratio 13 10.0 - 25.0 Ratio 05/27/2023 5:41 PM [facility] Calcium [Mass/Vol] 9.5 mg/dL 8.7 - 10.5 mg/dL [facility] 05-27 17:41 -0500 Calcium 9.5 8.7 - 10.5 mg/dL 05/27/2023 5:41 PM [facility] Chloride [Moles/Vol] 103 mmol/L 98 - 107 mmol/L [facility] 05-27 17:41 -0500 Chloride 103 98 - 107 mmol/L 05/27/2023 5:41 PM [facility] CO2 [Moles/Vol] 27 mmol/L 22 - 33 mmol/L [facility] 05-27 17:41 -0500 CO2 27 22 - 33 mmol/L 05/27/2023 5:41 PM [facility] Creatinine [Mass/Vol] 0.7 mg/dL 0.4 - 1.1 mg/dL [facility] 05-27 17:41 -0500 Creatinine 0.7 0.4 - 1.1 mg/dL 05/27/2023 5:41 PM [facility] Glucose [Mass/Vol] 83 mg/dL 65 - 99 mg/dL [facility] 05-27 17:41 -0500 Glucose 83 65 - 99 mg/dL 05/27/2023 5:41 PM [facility] Comment on above: Fasting: <100 mg/dL, Non-Fasting: <200 m g/dL (ADA 2005) Potassium [Moles/Vol] 4.1 mmol/L 3.4 - 5.3 mmol/L [facility] 05-27 17:41 -0500 Potassium 4.1 3.4 - 5.3 mmol/L 05/27/2023 5:41 PM [facility] Protein [Mass/Vol] 6.5 g/dL 6.3 - 8.3 g/dL [facility] 05-27 17:41 -0500 Protein, Total 6.5 6.3 - 8.3 g/dL 05/27/2023 5:41 PM [facility] Sodium [Moles/Vol] 139 mmol/L 136 - 145 mmol/L [facility] 05-27 17:41 -0500 Sodium 139 136 - 145 mmol/L 05/27/2023 5:41 PM [facility] Urea nitrogen [Mass/Vol] 9 mg/dL 8 - 21 mg/dL [facility] 05-27 17:41 -0500 Blood Urea Nitrogen (BUN) 9 8 - 21 mg/dL 05/27/2023 5:41 PM [facility] GFR/1.73 sq M.predicted CKD-EPI (S/P/Bld) [Vol rate/Area] <PINF >90 59 - PINF [facility] 05-27 17:41 -0500 eGFR >90 >59 05/27/2023 5:41 PM [facility] Comment on above: CKD-EPI (2020) in mL/min/1.73 sq meters. Globulin Calc (S) [Mass/Vol] 2.4 g/dL 1.5 - 3.9 g/dL [facility] 05-27 17:41 -0500 Globulin 2.4 1.5 - 3.9 g/dL 05/27/2023 5:41 PM [facility] Albumin/Globu lydia [Mass ratio] 1.7 [facility] 05-27 17:41 -0500 Albumin/Globuli n Ratio 1.7 1.0 - 3.0 Ratio 05/27/2023 5:41 PM [facility] Anion gap (Bld) [Moles/Vol] 9 7 - 17 [facility] 05-27 17:41 -0500 Anion Gap 9 7 - 17 05/27/2023 5:41 PM [facility] Comprehensive Metabolic Pane l (Routine)on 05-27-2023 ALT [Catalytic activity/Vol] 145 U/L High 10 - 50 U/L [facility] 05-28 00:28 -0500 Alanine Aminotrans (ALT) 145 (H) 10 - 50 U/L 05/28/2023 12:28 AM [facility] Albumin [Mass/Vol] 3.5 g/dL 3.4 - 4.8 g/dL [facility] 05-28 00:28 -0500 Albumin 3.5 3.4 - 4.8 g/dL 05/28/2023 12:28 AM [facility] ALP [Catalytic activity/Vol] 294 U/L High 32 - 122 U/L [facility] 05-28 00:28 -0500 Alkaline Phosphatase 294 (H) 32 - 122 U/L 05/28/2023 12:28 AM [facility] AST [Catalytic activity/Vol] 164 U/L High 10 - 50 U/L [facility] 05-28 00:28 -0500 Aspartate Aminotrans (AST) 164 (H) 10 - 50 U/L 05/28/2023 12:28 AM [facility] Bilirubin [Mass/Vol] 3.0 mg/dL High 0.2 - 1.0 mg/dL [facility] 05-28 00:28 -0500 Bilirubin, Total 3.0 (H) 0.2 - 1.0 mg/dL 05/28/2023 12:28 AM [facility] Urea nitrogen/Crea tinine [Mass ratio] 12 [facility] 05-28 00:28 -0500 BUN/Creatinine Ratio 12 10.0 - 25.0 Ratio 05/28/2023 12:28 AM [facility] Calcium [Mass/Vol] 8.8 mg/dL 8.7 - 10.5 mg/dL [facility] 05-28 00:28 -0500 Calcium 8.8 8.7 - 10.5 mg/dL 05/28/2023 12:28 AM [facility] Chloride [Moles/Vol] 104 mmol/L 98 - 107 mmol/L [facility] 05-28 00:050 Chloride 104 98 - 107 mmol/L 05/28/2023 12:28 AM [facility] CO2 [Moles/Vol] 24 mmol/L 22 - 33 mmol/L [facility] 05-28 00:050 CO2 24 22 - 33 mmol/L 05/28/2023 12:28 AM [facility] Creatinine [Mass/Vol] 0.6 mg/dL 0.4 - 1.1 mg/dL [facility] 05-28 00: Creatinine 0.6 0.4 - 1.1 mg/dL 05/28/2023 12:28 AM [facility] Glucose [Mass/Vol] 73 mg/dL 65 - 99 mg/dL [facility] 05-28 00: Glucose 73 65 - 99 mg/dL 05/28/2023 12:28 AM [facility] Comment on above: Fasting: <100 mg/dL, Non-Fasting: <200 m g/dL (ADA 2005) Potassium [Moles/Vol] 3.7 mmol/L 3.4 - 5.3 mmol/L [facility] 05-28 00: Potassium 3.7 3.4 - 5.3 mmol/L 05/28/2023 12:28 AM [facility] Protein [Mass/Vol] 5.7 g/dL Low 6.3 - 8.3 g/dL [facility] 05-28 00:050 Protein, Total 5.7 (L) 6.3 - 8.3 g/dL 05/28/2023 12:28 AM [facility] Sodium [Moles/Vol] 138 mmol/L 136 - 145 mmol/L [facility] 05-28 00: Sodium 138 136 - 145 mmol/L 05/28/2023 12:28 AM [facility] Urea nitrogen [Mass/Vol] 7 mg/dL Low 8 - 21 mg/dL [facility] 05-28 00:050 Blood Urea Nitrogen (BUN) 7 (L) 8 - 21 mg/dL 05/28/2023 12:28 AM [facility] GFR/1.73 sq M.predicted CKD-EPI (S/P/Bld) [Vol rate/Area] <PINF >90 59 - PINF [facility] 05-28 00:28 -0500 eGFR >90 >59 05/28/2023 12:28 AM [facility] Comment on above: CKD-EPI (2020) in mL/min/1.73 sq meters. Globulin Calc (S) [Mass/Vol] 2.2 g/dL 1.5 - 3.9 g/dL [facility] 05-28 00:28 -0500 Globulin 2.2 1.5 - 3.9 g/dL 05/28/2023 12:28 AM [facility] Albumin/Globu lydia [Mass ratio] 1.6 [facility] 05-28 00:28 -0500 Albumin/Globuli n Ratio 1.6 1.0 - 3.0 Ratio 05/28/2023 12:28 AM [facility] Anion gap (Bld) [Moles/Vol] 10 7 - 17 [facility] 05-28 00:28 -0500 Anion Gap 10 7 - 17 05/28/2023 12:28 AM [facility] Interpretatio n and review of laboratory results Abnormal [facility] 05-28 00:28 -0500 [facility] 05-28 00:28 -0500 ECG 12 lead (STAT)Ordered By : Yan Rico on 05-27-2023 Ventricular rate 81 BPM [facility] Work Phone: 05-27 21:07 -0500 Ventricular rate 81 BPM EKG [facility] Atrial rate 81 BPM [facility] Work Phone: 05-27 21:07 -0500 Atrial rate 81 BPM EKG [facility] QRS duration 74 ms [facility] Work Phone: 05-27 21:07 -0500 QRS duration 74 ms EKG [facility] QTC calculation (Bazett) 474 ms [facility] Work Phone: 05-27 21:07 -0500 QTC calculation (Bazett) 474 ms EKG [facility] P axis 67 degrees [facility] Work Phone: 05-27 21:07 -0500 P axis 67 degrees EKG [facility] R axis -12 degrees [facility] Work Phone: 05-27 21:07 -0500 R axis -12 degrees EKG [facility] T axis 45 degrees [facility] Work Phone: 05-27 21:07 -0500 T axis 45 degrees EKG [facility] Work Phone: 05-27 21:07 -0500 ECG 12 lead (STAT)on 024 Sinus rhythm with marked sinus arrhythmia Low voltage QRS Cannot rule out Anterior infarct , age undetermined Abnormal ECG No previous ECGs available Confirmed by MD Rico Ahmed ([id number]) on 05/27/2023 9:07:53 PM EKG [facility] 05-27 21:07 -0500 Sinus rhythm with marked sinus arrhythmia Low voltage QRS Cannot rule out Anterior infarct , age undetermined Abnormal ECG No previous ECGs available Confirmed by MD Rico Ahmed ([id number]) on 05/27/2023 9:07:53 PM Yan Rico MD - 05/27/2023 Sinus rhythm with marked sinus arrhythmia Low voltage QRS Cannot rule out Anterior infarct , age undetermined Abnormal ECG No previous ECGs available Confirmed by MD Rico Ahmed ([id number]) on 05/27/2023 9:07:53 PM [facility] 05-27 21:07 -0500 Yan Rico MD - 05/27/2023 Sinus rhythm with marked sinus arrhythmia Low voltage QRS Cannot rule out Anterior infarct , age undetermined Abnormal ECG No previous ECGs available Confirmed by MD Rico Ahmed ([id number]) on 05/27/2023 9:07:53 PM Emergency Department ([facility]EDS) variableson 05-27-2023 Interpretatio n and review of laboratory results Abnormal [facility] 05-27 20:21 -0500 Interpretatio n and review of laboratory results Abnormal [facility] 05-27 17:41 -0500 Ethanol, Bloodon 05-27-2023 Ethanol [Mass/Vol] <11 >NINF mg/dL NINF - 11 mg/dL [facility] 05-27 20:21 -0500 Ethanol, Quantitative, Blood <11 <11 mg/dL 05/27/2023 8:21 PM [facility] Comment on above: * FOR MEDICAL PURPOSES ONLY * Ethanol, Urineon 05-27-2023 Ethanol (U) [Mass/Vol] Negative Negative <11 mg/dL [facility] 05-27 20:15 -0500 Ethanol, Urine Negative Negative <11 mg/dL 05/27/2023 8:15 PM [facility] GAB[employer]EL Archive for reference on ly DXon 05-27-2023 This order has been auto-finalized and does not contain a result. [facility] 05-27 12:55 -0500 This order has been auto-finalized and does not contain a result. [employer] for reference on ly USon 05-27-2023 This order has been auto-finalized and does not contain a result. [facility] 05-27 17:51 -0500 This order has been auto-finalized and does not contain a result. Fentanyl Screen, Urineon fentaNYL+Norf entanyl Screen Ql (U) Negative Negative <5 ng/mL [facility] 05-27 20:15 -0500 Fentanyl Screen, Reflex, Urine Negative Negative <5 ng/mL 05/27/2023 8:15 PM [facility] Comment on above: * FOR MEDICAL PURPOSES ONLY * Confirmation upon request. Please note new methodology and reference range, effective 03/07/2022 GAMMA GLUTAMYL TRANS (GGT)on 05-27-2023 Gamma glutamyl transferase [Catalytic activity/Vol] 781 U/L High 7 - 32 U/L [facility] 05-27 20:21 -0500 Gamma Glutamyl Trans (GGT) 781 (H) 7 - 32 U/L 05/27/2023 8:21 PM [facility] Hepatitis Panel, Acuteon HAV IgM Ql (S) Non-Reactive Nonreactive S/CO [facility] 05-28 12:00 -0500 Hepatitis A Antibody IgM Nonreactive Nonreactive S/CO 05/28/2023 12:00 PM [facility] HBV surface Ag Ql (S) Non-Reactive Nonreactive [facility] 05-28 12:00 -0500 Hepatitis B Surface Ag Screen Nonreactive Nonreactive 05/28/2023 12:00 PM [facility] HCV Ab IA Ql Non-Reactive Nonreactive [facility] 05-28 12:00 -0500 Hepatitis C Antibody Interpretation Nonreactive Nonreactive 05/28/2023 12:00 PM [facility] HCV Ab Signal/Cutoff IA [Rel units/Vol] 0.10 [facility] 05-28 12:00 -0500 Hepatitis C Antibody 0.10 0.00 - 0.79 S/CO ratio 05/28/2023 12:00 PM [facility] HBV core IgM Ql (S) Non-Reactive Nonreactive [facility] 05-28 12:00 -0500 Hepatitis B Core Antibody IgM Nonreactive Nonreactive 05/28/2023 12:00 PM [facility] Hepatitis Interpretatio n: Results inconsistent with acute Hepatitis A, B or C Virus infection. [facility] 05-28 12:00 -0500 Hepatitis Interpretation: Results inconsistent with acute Hepatitis A, B or C Virus infection. 05/28/2023 12:00 PM [facility] 05-28 12:00 -0500 High Sensitivity Troponin To n 05-27-2023 Troponin T.cardiac [Mass/Vol] 16 ng/L High NINF - 15 ng/L [facility] 05-27 22:08 -0500 High Sensitivity Troponin T 16 (H) <15 ng/L 05/27/2023 10:08 PM [facility] Delta (Change) 2 NINF - 3 [facility] 05-27 22:08 -0500 Delta (Change) 2 <3 05/27/2023 10:08 PM [facility] Comment on above: Decreased Interpretatio n and review of laboratory results Abnormal [facility] 05-27 22:08 -0500 [facility] 05-27 22:08 -0500 High Sensitivity Troponin T (now and in one hour)on 05-27-2023 Troponin T.cardiac [Mass/Vol] 18 ng/L High NINF - 15 ng/L [facility] 05-27 20:21 -0500 High Sensitivity Troponin T 18 (H) <15 ng/L 05/27/2023 8:21 PM [facility] Delta (Change) NO PREVIOUS RESULT NINF - 3 [facility] 05-27 20:21 -0500 Delta (Change) NO PREVIOUS RESULT <3 05/27/2023 8:21 PM [facility] INRon 05-27-2023 INR Coag (PPP) [Relative time] 1.0 [facility] 05-27 17:33 -0500 INR 1.0 05/27/2023 5:33 PM [facility] Comment on above: INR Therapeutic Ranges: Standard dose an ticoagulant 2.0 to 3.0, High dose anticoagulant 2.5-3.5. PT Coag (PPP) [Time] 11.9 [facility] 05-27 17:33 -0500 Prothrombin Time (PT) 11.9 10.0 - 13.5 seconds 05/27/2023 5:33 PM [facility] Anticoagulant OTHER AGENT OR UNKNOWN [facility] 05-27 17:33 -0500 Anticoagulant OTHER AGENT OR UNKNOWN 05/27/2023 4:50 PM EST [facility] 05-27-2023 Lipase [Catalytic activity/Vol] 145 U/L High 13 - 60 U/L [facility] 05-27 17:41 -0500 Lipase 145 (H) 13 - 60 U/L 05/27/2023 5:41 PM [facility] Methadone Screen, Urineon Methadone Screen method >300 ng/mL Ql (U) Negative Negative <300 ng/mL [facility] 05-27 20:15 -0500 Methadone Screen, Urine Negative Negative <300 ng/mL 05/27/2023 8:15 PM [facility] Comment on above: * FOR MEDICAL PURPOSES ONLY * No Panel Informationon 05-27 [facility] 05-27 20:48 -0500 [facility] 05-27 17:41 -0500 Opiate Screen, Urineon 05-27 Opiates Screen method >300 ng/mL Ql (U) Positive Abnormal Negative <300 ng/mL [facility] 05-27 20:15 -0500 Opiate, Urine Positive (A) Negative <300 ng/mL 05/27/2023 8:15 PM [facility] Comment on above: * FOR MEDICAL PURPOSES ONLY * Confirmation upon request. Oxycodone Screen, Urineon oxyCODONE Screen Ql (U) Negative Negative <100 ng/mL [facility] 05-27 20:15 -0500 Oxycodone Screen, Urine Negative Negative <100 ng/mL 05/27/2023 8:15 PM [facility] Comment on above: * FOR MEDICAL PURPOSES ONLY * Phencyclidine (PCP) Screen, Urineon 05-27-2023 Phencyclidine Screen method >25 ng/mL Ql (U) Negative Negative <25 ng/mL [facility] 05-27 20:15 -0500 PCP Screen, Urine Negative Negative <25 ng/mL 05/27/2023 8:15 PM [facility] Comment on above: * FOR MEDICAL PURPOSES ONLY * Salicylate Levelon Salicylates [Mass/Vol] <1 >NINF mg/dL Low 15 - 30 mg/dL [facility] 05-27 20:21 -0500 Salicylate, Serum <1 (L) 15 - 30 mg/dL 05/27/2023 8:21 PM [facility] Tricyclic Screen, Urineon Tricyclic antidepressan ts Screen Ql (U) Negative Negative <300 ng/mL [facility] 05-27 20:15 -0500 Tricyclic Screen, Urine Negative Negative <300 ng/mL 05/27/2023 8:15 PM [facility] Comment on above: * FOR MEDICAL PURPOSES ONLY * Triglycerideson 05-27-2023 Triglyceride [Mass/Vol] 133 mg/dL NINF - 150 mg/dL [facility] 05-27 20:48 -0500 Triglycerides 133 <150 mg/dL 05/27/2023 8:48 PM [facility] Urinalysis with Reflex to Mi croscopicon 05-27-2023 RBC LM.HPF (Urine sed) [#/Area] 1 [facility] 05-27 19:56 -0500 RBC 1 0 - 4 per hpf 05/27/2023 7:56 PM [facility] Hemoglobin Test strip Ql (U) Negative Negative [facility] 05-27 19:56 -0500 Blood Negative Negative 05/27/2023 7:56 PM [facility] Leukocyte esterase Test strip Ql (U) Trace Abnormal Negative [facility] 05-27 19:56 -0500 Leukocyte Esterase Trace (A) Negative 05/27/2023 7:56 PM [facility] WBC LM.HPF (Urine sed) [#/Area] 1 [facility] 05-27 19:56 -0500 WBC 1 0 - 4 per hpf 05/27/2023 7:56 PM [facility] Nitrite Test strip Ql (U) Negative Negative [facility] 05-27 19:56 -0500 Nitrite Negative Negative 05/27/2023 7:56 PM [facility] Protein Test strip (U) [Mass/Vol] Negative Negative [facility] 05-27 19:56 -0500 Protein Negative Negative 05/27/2023 7:56 PM [facility] Specific gravity Test strip (U) [Rel density] 1.018 1.003 - 1.030 [facility] 05-27 19:56 -0500 Specific Mcwilliams 1.018 1.003 - 1.030 05/27/2023 7:56 PM [facility] Epithelial cells.squamou s LM.HPF (Urine sed) [#/Area] 1 PER HPF [facility] 05-27 19:56 -0500 Squamous Epithelial Cells 1 PER HPF 05/27/2023 7:56 PM [facility] Clarity (U) Clear [facility] 05-27 19:56 -0500 Clarity Clear 05/27/2023 7:56 PM [facility] Color (U) Yellow [facility] 05-27 19:56 -0500 Color Yellow 05/27/2023 7:56 PM [facility] pH Test strip (U) 6.0 5.0 - 8.0 [facility] 05-27 19:56 -0500 pH 6.0 5.0 - 8.0 05/27/2023 7:56 PM EST [facility] Glucose Test strip (U) [Mass/Vol] 0 mg/dL 0 - 99 mg/dL [facility] 05-27 19:56 -0500 Glucose 0 0 - 99 mg/dL 05/27/2023 7:56 PM EST [facility] Ketones Test strip (U) [Mass/Vol] Small Abnormal Negative [facility] 05-27 19:56 -0500 Ketones Small (A) Negative 05/27/2023 7:56 PM EST [facility] Bilirubin Test strip (U) [Mass/Vol] Negative Negative [facility] 05-27 19:56 -0500 Bilirubin Negative Negative 05/27/2023 7:56 PM [facility] XR Chest 1 view-Portableon 0 05-27-2023 No acute pulmonary disease. Db Queen DO Entertainment Reporter I personally reviewed the images and the Resident's preliminary report and AGREE with the report as it is now presented ([email or web address]). [facility] 05-27 20:58 -0500 No acute pulmonary disease. Db Queen DO Entertainment Reporter I personally reviewed the images and the Resident's preliminary report and AGREE with the report as it is now presented ([email or web address]). EXAMINATION: XR CHEST CLINICAL INFORMATION: hx COPD, cough COMPARISON: Chest radiograph 05/26/2023. TECHNIQUE: AP portable upright view of the chest was obtained. FINDINGS: The lungs are well expanded. Chronic emphysema. There is no focal consolidation, overt edema, or effusion. No pneumothorax. The cardiomediasti nal silhouette is normal and unchanged. No acute osseous abnormality. [facility] 05-27 20:58 -0500 EXAMINATION: XR CHEST CLINICAL INFORMATION: hx COPD, cough COMPARISON: Chest radiograph 05/26/2023. TECHNIQUE: AP portable upright view of the chest was obtained. FINDINGS: The lungs are well expanded. Chronic emphysema. There is no focal consolidation, overt edema, or effusion. No pneumothorax. The cardiomediastin al silhouette is normal and unchanged. No acute osseous abnormality. Nghia Head MD - 05/27/2023 EXAMINATION: XR CHEST CLINICAL INFORMATION: hx COPD, cough COMPARISON: Chest radiograph 05/26/2023. TECHNIQUE: AP portable upright view of the chest was obtained. FINDINGS: The lungs are well expanded. Chronic emphysema. There is no focal consolidation, overt edema, or effusion. No pneumothorax. The cardiomediasti nal silhouette is normal and unchanged. No acute osseous abnormality. IMPRESSION: No acute pulmonary disease. Db Queen DO Entertainment Reporter I personally reviewed the images and the Resident's preliminary report and AGREE with the report as it is now presented ([email or web address]). [facility] 05-27 20:58 -0500 Adilene, Nghia Laboy MD - 05/27/2023 EXAMINATION: XR CHEST CLINICAL INFORMATION: hx COPD, cough COMPARISON: Chest radiograph 05/26/2023. TECHNIQUE: AP portable upright view of the chest was obtained. FINDINGS: The lungs are well expanded. Chronic emphysema. There is no focal consolidation, overt edema, or effusion. No pneumothorax. The cardiomediastin al silhouette is normal and unchanged. No acute osseous abnormality. IMPRESSION: No acute pulmonary disease. Db Queen DO Entertainment Reporter I personally reviewed the images and the Resident's preliminary report and AGREE with the report as it is now presented ([email or web address]). Radiology Study observation (narrative) [facility] XR Chest 1 view-PortableOrde red By: Nghia Head on 05-27-2023 [facility] Work Phone: 05-27 20:58 -0500 Social History Date Type Detail Facility Start: 05-30-2023 Alcohol intake Ex-drinker (finding) [facility] Start: 05-28-2023 End: 05-29-2023 [employer] [facility] Work Phone: Start: 05-27-2023 Gender identity Identifies as female gender (finding) [facility] Start: 05-27-2023 Sexual orientation Heterosexual (finding) [facility] Start: 05-27-2023 Tobacco smoking status NHIS Ex-smoker [facility] Start: 05-27-2023 End: 05-29-2023 Cigarettes smoked current (pack per day) - Reported 3 [facility] Work Phone: Start: 05-27-2023 Tobacco use and exposure Smokeless tobacco non-user [facility] Start: 05-27-2023 Alcohol Comment 4-5 vodka drinks per day, stopped 04/2023 [facility] Start: 05-27-2023 Alcohol Comment 4-5 vodka drinks per day, stopped 04/2023 [facility] Start: 03-20-1973 End: 03-20-2023 History of tobacco use Current smoker [facility] Start: 03-20-1973 End: 03-20-2023 History of tobacco use Cigarette Smoker [facility] Start: 1955 Sex Ass[facility] the [employer], or [employer] threatened to shut off services in your home in past 12Mo No [facility] Work Phone: How often to you hav e a drink containing alcohol? Never [facility] Work Phone: How many standard drinks containing alcohol do you have on a typical day? Patient does not drink [facility] (I/We) worried [facility] (my/our) food would run out before (I/we) got money to buy more. Never true [facility] Vital Signs Date Time Vital Sign Value Performing Clinician Facility 05-30-2023 14:17-0500 Body temperature 97 [degF] Kenji Escobedo DO Work Phone: [facility] 05-30-2023 14:17-0500 BP (Blood pressure) 124/50mm[Hg] Kenji Parkso DO Work Phone: [facility] Comment on above: KACI Rincon notified 05-30-2023 14:17-0500 Heart rate 88 /min Kenji Tolliversteventaty DO Work Phone: [facility] 05-30-2023 14:17-0500 Respiratory rate 14 /min Kenji Umeshllo DO Work Phone: [facility] 05-30-2023 14:17-0500 SaO2% (BldA) [Mass fraction] 88 % Kenji Calvollo DO Work Phone: [facility] Comment on above: RN Mckenzie notified 05-28-2023 14:19-0500 Body height 167.6 cm Kenji Escobedo DO Work Phone: [facility] 05-28-2023 14:19-0500 Body mass index (BMI) [Ratio] 19.21 kg/m2 Kenji Parkso DO Work Phone: [facility] 05-28-2023 14:19-0500 Body weight 53.98 kg Kenji Escobedo DO Work Phone: [facility] Clinical Notes 05-27-2023 to 04-23-2024 Telephone Encounter - Bryce Capps MD - 04/23/2024 12:43 PM ESTTelephone Encounter - Bryce Capps MD - 04/23/2024 12:43 PM ESTSANISA Castillo - 05/30/2023 1:02 PM EST Note Date & Type Note Facility 04-23-2024 Telephone encounter Note ----- Message from Leather Piece Inspector Tanja Pelaez MA sent at 04/23/2024 9:47 AM EST ----- Spoke to patient. She had an ERCP quite a few months ago at [facility]. Dr. Chirinos. She is seeing him on 05/02/24 for a follow up. Thanks ----- Message ----- From: Bryce Capps MD Sent: 04/23/2024 8:21 AM EST To: Tanja Wagner MA Can you please check with the patient to see if she had repeat ERCP in [place]? [facility] Work Phone: 04-23-2024 Miscellaneous Notes ----- Message from Leather Piece Inspector Tanja Pelaez MA sent at 04/23/2024 9:47 AM EST ----- Spoke to patient. She had an ERCP quite a few months ago at [facility]. Dr. Chirinos. She is seeing him on 05/02/24 for a follow up. Thanks ----- Message ----- From: Bryce Capps MD Sent: 04/23/2024 8:21 AM EST To: Tanja Wagner MA Can you please check with the patient to see if she had repeat ERCP in [facility]? documented in this encounter [facility] 07-30-2023 Telephone encounter Note Ok will do. Thank you [facility] Work Phone: 07-30-2023 Miscellaneous Notes Ok will do. Thank you Patient called and lvm on our overflow line. She wants to cancel her upcoming procedure on August 20. She lives in [place] and found another provider closer to her to continue her care. documented in this encounter [facility] 07-30-2023 Telephone encounter Note Patient called and lvm on our overflow line. She wants to cancel her upcoming procedure on August 20. She lives in [place] and found another provider closer to her to continue her care. [facility] 07-16-2023 Telephone encounter Note I already informed this pt I need to hear from her prescribers before I can get back to her [facility] Work Phone: 07-16-2023 Miscellaneous Notes I already informed this pt I need to hear from her prescribers before I can get back to her Pt called in has questions regarding taking Plavix before her procedure, and stated ctgi needs to reach out to her other dr to discuss this matter. Please contact the pt to advise. Thank you. documented in this encounter [facility] 07-16-2023 Telephone encounter Note Pt called in has questions regarding taking Plavix before her procedure, and stated ctgi needs to reach out to her other dr to discuss this matter. Please contact the pt to advise. Thank you. [facility] 06-18-2023 Telephone encounter Note Call to B[facility]heva to schedule stent removal she will get it done in her area [facility] Phone: 06-18-2023 Miscellaneous Notes Call to Batsheva to schedule stent removal she will get it done in her area documented in this encounter [facility] 06-13-2023 Telephone encounter Note Left message for return call to schedule stent exchange [facility] Phone: 06-13-2023 Miscellaneous Notes Left message for return call to schedule stent exchange documented in this encounter [facility] 06-11-2023 Telephone encounter Note Left message for return call to schedule repeat ercp [facility] Work Phone: 06-11-2023 Miscellaneous Notes Left message for return call to schedule repeat ercp documented in this encounter [facility] 05-30-2023 Plan of care note Pt. Aox4. DC to home, dc paperwork explained to pt., she verbalized understanding. Taxi called at 1700. Pt. left the unit at 1700. Problem: Adult Inpatient Plan of Care Goal: Plan of Care Review Outcome: Met Goal: Patient-Specific Goal (Individualized) Outcome: Met Goal: Absence of Hospital-Acquired Illness or Injury Outcome: Met Goal: Optimal Comfort and Wellbeing Outcome: Met Goal: Readiness for Transition of Care Outcome: Met Problem: Skin Injury Risk Increased Goal: Skin Health and Integrity Outcome: Met Problem: Fall Injury Risk Goal: Absence of Fall and Fall-Related Injury Outcome: Met Problem: COPD (Chronic Obstructive Pulmonary Disease) Comorbidity Goal: Maintenance of COPD Symptom Control Outcome: Met Problem: Hypertension Comorbidity Goal: Blood Pressure in Desired Range Outcome: Met Problem: Pain Acute Goal: Optimal Pain Control and Function Outcome: Met Mckenzie Shi 05/30/2023 5:16 PM [facility] Work Phone: 05-30-2023 Miscellaneous Notes Pt. Aox4. DC to home, dc paperwork explained to pt., she verbalized understanding. Taxi called at 1700. Pt. left the unit at 1700. Problem: Adult Inpatient Plan of Care Goal: Plan of Care Review Outcome: Met Goal: Patient-Specific Goal (Individualized) Outcome: Met Goal: Absence of Hospital-Acquired Illness or Injury Outcome: Met Goal: Optimal Comfort and Wellbeing Outcome: Met Goal: Readiness for Transition of Care Outcome: Met Problem: Skin Injury Risk Increased Goal: Skin Health and Integrity Outcome: Met Problem: Fall Injury Risk Goal: Absence of Fall and Fall-Related Injury Outcome: Met Problem: COPD (Chronic Obstructive Pulmonary Disease) Comorbidity Goal: Maintenance of COPD Symptom Control Outcome: Met Problem: Hypertension Comorbidity Goal: Blood Pressure in Desired Range Outcome: Met Problem: Pain Acute Goal: Optimal Pain Control and Function Outcome: Met Mckenzie Shi 05/30/2023 5:16 PM Assumed care at [id number]. Patient is alert and oriented x4. Medicated per JUL. Complaints of abdominal pain, PRN IV Dilaudid given with good effect. Pt refused PO MD argelia made aware. On continuous IV NS at 100 ml/hr. All safety maintained. Will continue to monitor. Problem: Adult Inpatient Plan of Care Goal: Plan of Care Review Outcome: Progressing Goal: Patient-Specific Goal (Individualized) Outcome: Progressing Goal: Absence of Hospital-Acquired Illness or Injury Outcome: Progressing Goal: Optimal Comfort and Wellbeing Outcome: Progressing Goal: Readiness for Transition of Care Outcome: Progressing Problem: Skin Injury Risk Increased Goal: Skin Health and Integrity Outcome: Progressing Problem: Fall Injury Risk Goal: Absence of Fall and Fall-Related Injury Outcome: Progressing Problem: COPD (Chronic Obstructive Pulmonary Disease) Comorbidity Goal: Maintenance of COPD Symptom Control Outcome: Progressing Problem: Hypertension Comorbidity Goal: Blood Pressure in Desired Range Outcome: Progressing Problem: Pain Acute Goal: Optimal Pain Control and Function Outcome: Progressing Dougie Marr 05/30/2023 8:09 AM Assumed care at 0700. A&Ox4. VSS. Cont. on ivf. NPO pending procedure. C/o abd & back pain managed with prn dilaudid. Went for ERCP this afternoon. NPO x4 hrs post-procedure then ok to advance to clear liquid diet per GI - MD made aware. Refusing fall alarm, ambulating independently in the room. Malia Chou 05/29/2023 6:07 PM PLAN OF CARE I was notified by the nurse that patient is very angry and upset that she has not gone for ERCP yet. When I went to assess her, she was stating that she will leave tomorrow by noon if it is not done by then. When I attempted to explain the risks of her leaving and said her findings were still urgent for an ERCP, she interrupted me and stated if this is an urgent case, then why she is my ERCP so delayed until tonight . Morena Monteiro PGY1 Physical Medicine & Rehabilitation [employer] Initial Case Management Care Plan Note Assessment completed with patient, medical record review and discussion with clinical team. CC met with the patient using social distancing. Provided a Case Coordination packet with contact information, CC pamphlet and Your Next Step: Care Outside the Hospital brochure to the patient. Summary: Patient is a 68 year old female with history of COPD with home O2 as needed, hypertension, newly diagnosed A-fib, previous ETOH disorder who was transferred from [facility] due to abdominal pain and biliary stricture on imaging. rehabilitation case coordinator met with patient at bedside. She lives alone in a 1st level apartment. She is independent, drives, and works full-time. She declined any services but will need a taxi ride home. Anticipated transition plan: home routine Caregiver/responsible person supports: children PCP: Anna Tristan Anticipated transportation: taxi Referrals made: None Barriers to discharge: ERCP Problem: Adult Inpatient Plan of Care Goal: Readiness for Transition of Care Outcome: Progressing Jill Estes 05/29/2023 10:50 AM Assumed care [id number]. A&Ox4. C/o 7/10 abd pain radiating to her back, prn dilaudid given x2. IVF continued. NPO at midnight. Refusing fall alarm despite education but calling for assistance appropriately. All safety maintained. Problem: Adult Inpatient Plan of Care Goal: Plan of Care Review Outcome: Progressing Goal: Patient-Specific Goal (Individualized) Outcome: Progressing Goal: Absence of Hospital-Acquired Illness or Injury Outcome: Progressing Goal: Optimal Comfort and Wellbeing Outcome: Progressing Goal: Readiness for Transition of Care Outcome: Progressing Problem: Skin Injury Risk Increased Goal: Skin Health and Integrity Outcome: Progressing Problem: Fall Injury Risk Goal: Absence of Fall and Fall-Related Injury Outcome: Progressing Problem: COPD (Chronic Obstructive Pulmonary Disease) Comorbidity Goal: Maintenance of COPD Symptom Control Outcome: Progressing Problem: Hypertension Comorbidity Goal: Blood Pressure in Desired Range Outcome: Progressing Problem: Pain Acute Goal: Optimal Pain Control and Function Outcome: Progressing Izabela Hernandez 05/29/2023 7:07 AM New admit from ED at 1:30pm. A&Ox3 - off to time. VSS on RA (wears 2L NC prn at baseline). Cont. on ivf. Endorsing 8/10 lower abd & back pain, managed with prn IV dilaudid with some effect. 4 eyes skin assessment completed. Educated on use of call bunch for assistance. Standby assist OOB. Will be NPO at midnight for ERCP tomorrow. Safety maintained. Malia Chou 05/28/2023 6:20 PM Clinical Impression: Abdominal pain HPI: 68 yo hx of COPD F transfer from [facility] with CBD stricture needs ERCP. Per pt had abdominal pain x 3 days Constitutional:Mental status alert and appropriate Abdomen:Abdomen soft, non-tender, non-distended without peritoneal signs. MDM: documented in this encounter [facility] 05-30-2023 Hospital course Narrative Images from the original note were not included. Inpatient Discharge Summary [facility] Brief Overview Patient Demographics BATSHEVA KAHN 1955 68 y.o. Allergies Allergen Reactions Cefazolin Anaphylaxis Ketorolac Tromethamine Anaphylaxis Cephalexin Photosensitivity Vancomycin Other (See Comments) Pt is unsure the type of reaction she has with vanco Admission Date: 05/27/2023 Admitting Provider: Antonio Goel MD Discharge Provider: Nick Shell MD Primary Care Provider at Discharge: Fernie Tristan MD Discharge Date: 05/30/2023 Primary Discharge Diagnosis Principal Problem: Biliary stricture (POA: Yes) Active Problems: Transaminitis (POA: Yes) H/O ETOH abuse (POA: Yes) Macrocytic anemia (POA: Yes) Pancreatic duct stricture (POA: Yes) Resolved Problems: Discharge Disposition Home Or Self Care Code Status Procedures Full Code Admission Medications nicotine (NICODERM CQ) 21 MG/24HR patch Place 1 patch on the skin daily. albuterol (PROVENTIL HFA; VENTOLIN HFA) 108 (90 Base) MCG/ACT inhaler INHALE 2 PUFFS INTO LUNGS EVERY 6 HRS NEEDED FOR COUGH/WHEEZING citalopram (CeleXA) 40 MG tablet Take 1 tablet (40 mg total) by mouth daily. clopidogrel (PLAVIX) 75 MG tablet Take 1 tablet (75 mg total) by mouth daily. diltiazem (CARDIZEM) 30 MG tablet Take 1 tablet (30 mg total) by mouth every 6 (six) hours. Eliquis 5 MG tablet Take 1 tablet (5 mg total) by mouth 2 (two) times a day. folic acid (FOLVITE) 1 MG tablet Take 1 tablet (1 mg total) by mouth daily. gabapentin (NEURONTIN) 300 MG capsule Take 2 capsules (600 mg total) by mouth nightly. hydrOXYzine pamoate (VISTARIL) 25 MG capsule Take 1 capsule (25 mg total) by mouth 4 times daily (every 6 hours) as needed for anxiety. Incruse Ellipta 62.5 MCG/ACT inhaler INHALE 1 PUFF INTO THE LUNGS DAILY FOR 30 DAYS lovastatin (MEVACOR) 40 MG tablet Take 1 tablet (40 mg total) by mouth nightly. PANTOprazole (PROTONIX) 20 MG tablet Take 1 tablet (20 mg total) by mouth daily. traZODone (DESYREL) 50 MG tablet Take 1.5 tablets (75 mg total) by mouth nightly. venlafaxine (EFFEXOR-XR) 75 MG 24 hr capsule Take 1 capsule (75 mg total) by mouth daily. vitamin B-12 100 MCG tablet Take 1 tablet (100 mcg total) by mouth daily. Discharge Medications New Medications Sig HYDROmorphone 2 MG tablet Commonly known as: DILAUDID Take 1 tablet (2 mg total) by mouth 4 times daily (every 6 hours) as needed for severe pain. Max Daily Amount: 8 mg Quantity: 10 tablet polyethylene glycol 17 g packet Commonly known as: miraLAx Take 1 packet (17 g total) by mouth daily. Quantity: 30 packet senna 8.6 MG Tabs tablet Commonly known as: SENOKOT Take 2 tablets by mouth daily as needed for constipation. Quantity: 30 tablet Modified Medications Sig * PANTOprazole 20 MG tablet Commonly known as: PROTONIX What changed: Another medication with the same name was added. Make sure you understand how and when to take each. Take 1 tablet (20 mg total) by mouth daily. * PANTOprazole 40 MG EC tablet Commonly known as: PROTONIX What changed: You were already taking a medication with the same name, and this prescription was added. Make sure you understand how and when to take each. Take 1 tablet (40 mg total) by mouth 2 times a day. Quantity: 60 tablet * There are duplicate medications prescribed to the patient Medications To Continue Sig albuterol 108 (90 Base) MCG/ACT inhaler Commonly known as: PROVENTIL HFA; VENTOLIN HFA INHALE 2 PUFFS INTO LUNGS EVERY 6 HRS NEEDED FOR COUGH/WHEEZING citalopram 40 MG tablet Commonly known as: CeleXA Take 1 tablet (40 mg total) by mouth daily. clopidogrel 75 MG tablet Commonly known as: PLAVIX Take 1 tablet (75 mg total) by mouth daily. Eliquis 5 MG tablet Generic drug: apixaban Take 1 tablet (5 mg total) by mouth 2 (two) times a day. folic acid 1 MG tablet Commonly known as: FOLVITE Take 1 tablet (1 mg total) by mouth daily. gabapentin 300 MG capsule Commonly known as: NEURONTIN Take 2 capsules (600 mg total) by mouth nightly. hydrOXYzine pamoate 25 MG capsule Commonly known as: VISTARIL Take 1 capsule (25 mg total) by mouth 4 times daily (every 6 hours) as needed for anxiety. Incruse Ellipta 62.5 MCG/ACT inhaler Generic drug: umeclidinium bromide INHALE 1 PUFF INTO THE LUNGS DAILY FOR 30 DAYS lovastatin 40 MG tablet Commonly known as: MEVACOR Take 1 tablet (40 mg total) by mouth nightly. nicotine 21 MG/24HR patch Commonly known as: NICODERM CQ Place 1 patch on the skin daily. traZODone 50 MG tablet Commonly known as: DESYREL Take 1.5 tablets (75 mg total) by mouth nightly. venlafaxine 75 MG 24 hr capsule Commonly known as: EFFEXOR-XR Take 1 capsule (75 mg total) by mouth daily. vitamin B-12 100 MCG tablet Commonly known as: CYANOCOBALAMIN Take 1 tablet (100 mcg total) by mouth daily. Stopped Medications diltiazem 30 MG tablet Commonly known as: CARDIZEM Follow-up Providers Fernie Tristan MD [facility] [id number] Active Issues Requiring Follow-up -Outpatient follow up with PCP -Discharged on 40mg Protonix daily -Patient given 10 tabs of 2mg PO dilaudid to take as needed for pain. Bowel regimen prescribed -Continue with low fat diet -Needs repeat ERCP in 4 weeks for stent removal/exchange (please discuss with PCP and GI when to hold plavix and eliquis before the procedure) Test Results Pending at Discharge Pending Labs Order Current Status BLOOD CULTURE Peripheral Preliminary result BLOOD CULTURE Peripheral Preliminary result Type and Screen Preliminary result Details of Hospital Stay Presenting Problem/History of Present Illness HPI per admitting provider: 68 y/o F with pmh of COPD as needed home 2 L O2, hypertension, newly diagnosed A-fib 04/2024 on Eliquis, previous EtoH use disorder, presents to as a transfer from [facility] due to abdominal pain and biliary stricture on imaging. History per patient. She says she has had symptoms of post prandial abdominal pain starting many weeks ago but has been more constant and intense abdominal pain over the last 3 days that prompted her to go to ED in [facility]. She denies fevers, chills, blood in stool, jaundice. She had transaminitis at OSH today and MRCP showed CBD dilation with stricture. Patient ultimately was transferred here for further GI intervention, ERCP. GI team here is aware at admission. Per her trasnfer docs it does not appear she was started on abx. She has had an anaphylactic reaction to Ancef in past. Regarding her chest pain, she attributes it being related to her abdominal pain, it is sharp, non radiating, associated with chest wall tenderness. She also is a known COPD patient, is on prn oxygen in past but reports non compliance. She reprots a wet cough but not productive. Hospital Course #Bililary stricture #Rule out?Choledocholithiasis? #Tranaminitis MRCP-ampullary level duct obstruction, new compared to 2016, chronic pancreatitis sequelae. CT abdomen showed distended gallbladder, trace pericholecystic fluid without gallbladder wall thickening, findings are equivocal for acute cholecystitis, CBD approximately 1.6 cm, diffuse pancreatic duct beadlike dilation. LFTs-AST/ALT 177/162 304, Lipase 145,T bilirubin 2.8. GGT elevated to 781. Patient underwent ERCP with identification of severe distal biliary structure. 10 Welsh by 7 cm straight biliary strand was placed by GI. Pancreatic duct stricture was also found and a 5 Welsh by 9 cm single pigtail pancreatic stent was placed. LFTs downtrending. Patient started on 40 mg Protonix twice daily. She was given normal saline infusion for fluid resuscitation. Pain was managed with IV Dilaudid, this was transitioned to p.o. Dilaudid on discharge. Blood cultures NTD. She was monitored off antibiotics. Plan per GI to repeat ERCP in 4 weeks time. ? #Hx alcohol use #Macrocytic Anemia She says her last drink was Thanksgi2022. She says she used to drink up to 5 Vodka cocktails per day and denies current alcohol withdrawal symptoms. Blood ethanol <11, hepatitis panel negative, tox screen positive for cannabinoids and opioids, acetaminophen level within normal limits. #Hx COPD? #Tobacco use Baseline 2LNC. ? #A fib #HTN #HLD Newly diagnosed 04/2023. Eliquis and plavix held pre-procedure and resumed on discharged. Discuss with GI and PCP when to hold prior to ERCP in 4 weeks. Patient is not on cardizem or furosemide at home. #Mood Disorder On venlafaxine 75 mg daily. ? Procedures: Surgical/Procedural Cases on this Admission Case IDs Date Procedure Surgeon Location Status [id number] 05/29/23 ERCP Bryce Capps MD GI Endoscopy Comp Physical Exam at Discharge Discharge Condition: stable Last Vitals: Pulse:86,Resp:18,BP:(!) 158/62 (RN Mckenzie notified),SpO2:94 %,Weight: 54 kg (119 lb) Temp Last 24 hrs: Temp Min: 96.4 ?F (35.8 ?C) Max: 99.8 ?F (37.7 ?C) General: No acute distress. Well developed, well nourished. HEENT: Normocephalic, atraumatic. Moist mucous membranes. No scleral icterus. Cardiac: RRR. S1 and S2 normal. No murmurs, rubs, or gallops. Lungs: Chest rise symmetric. Clear to auscultation bilaterally. No wheezes, rales, or rhonchi. Abdomen: Soft, non-tender, non-distended, + Moderate right upper quadrant abdominal tenderness. No rebound or guarding. Normoactive bowel sounds. Extremities: No peripheral edema. Skin: Warm, dry, and intact. No jaundice. Neuro: Alert and oriented x3. No focal neurologic deficits. Moving all extremities spontaneously. ANISA Salazar PGY-3 [facility], Internal Medicine [address] [place] [address] Available on [place] Text Associated attestation - Nick Shell MD - 05/30/2023 4:15 PM EST Teaching Attending Inpatient Attestation: I have personally interviewed and examined the patient and reviewed Dr. Domenic Christensen's note. I agree with the history, exam, assessment and plan as detailed in the Resident/Fellow's note with the following additions/exceptions/observations . Labs/Radiologic Studies were reviewed. Patient resting comfortably in bed this morning no acute distress. Minimal abdominal discomfort, felt hungry and was advanced to low-fat diet. Eliquis and Plavix may be resumed resumed today. She will need a repeat ERCP in 4 weeks for stent removal/exchange. Agree with the information as documented in the discharge summary. Problem List Patient seen on 05/30/2023 Sign: Nick Shell MD 05/30/2023 4:14 PM documented in this encounter [facility] 05-30-2023 History of Present illness Narrative 05/30/23 1150 Plan Plan Home routine Patient/Family in Agreement with Plan yes Final Discharge Disposition Code 01 - home or self-care Final Case Management Care Plan Note Summary: Per provider, patient is medically ready to transition home. Confirmed that patient is able to obtain medications/food/necessities post discharge. Final Destination: home routine Plan for home support/Caregiver/responsible person: self Follow-up provider appointment: Per AVS/W-10 Equipment Ordered and Given at Discharge: n/a Final Discharge Transportation: taxi Gastroenterology Progress Note Principal Problem: Biliary stricture (POA: Yes) Active Problems: Transaminitis (POA: Yes) H/O ETOH abuse (POA: Yes) Macrocytic anemia (POA: Yes) Pancreatic duct stricture (POA: Yes) Resolved Problems: 68 y.o. Assessment & Plan Assessment 68F with COPD, HTN, A fib on Eliquis, h/o EtOH use with EtOH pancreatitis 2018, transferred to with biliary obstruction s/p ERCP yesterday with a severe distal biliary stricture was found, s/p 10 Fr by 7 cm straight biliary stent was placed, a pancreatic duct stricture was found. A 5 Fr by 9 cm single pigtail pancreatic stent was placed. LFTs trending down. Plan Okay to advance to low fat diet. Okay to resume Eliquis/Plavix. Will need repeat ERCP in 4 weeks for stent removal/exchange- office will contact patient to schedule this. Okay for discharge from GI standpoint. Seen and discussed with Dr. Loyola. Please [place] Text CTGI A with questions. Subjective Doing pretty well today. Tolerating liquid diet. Objective Meds Current Facility-Administered Medications: sodium chloride 0.9% (NS) infusion, 100 mL/hr, Intravenous, Continuous, Antonio Goel MD, Last Rate: 100 mL/hr at 05/30/23 0339, 100 mL/hr at 05/30/23 033 albuterol (PROVENTIL HFA; VENTOLIN HFA) inhaler 2 puff, 2 puff, Inhalation, Q6H PRN, Antonio Goel MD apixaban (ELIQUIS) tablet 5 mg, 5 mg, Oral, BID, Morena Monteiro MD calcium gluconate IVPB 1 g in 50 mL 0.67% NaCl PREMIX, 1 g, Intravenous, Once, ANISA Salazar, Last Rate: 50 mL/hr at 05/30/23 1032, 1 g at 05/30/23 1032 clopidogrel (PLAVIX) tablet 75 mg, 75 mg, Oral, Daily, Morena Monteiro MD cyanocobalamin (VITAMIN B-12) tablet 250 mcg, 250 mcg, Oral, Daily, Antonio Goel MD, 250 mcg at 05/30/23 0852 diltiazem (CARDIZEM) tablet 30 mg, 30 mg, Oral, Q6H, ANISA Salazar, 30 mg at 05/30/23 0903 fluticasone-vilanterol (BREO ELLIPTA) 100-25 MCG/ACT inhaler 1 puff, 1 puff, Inhalation, Daily, Antonio Goel MD, 1 puff at 05/30/23 0916 folic acid (FOLVITE) tablet 1,000 mcg, 1,000 mcg, Oral, Daily, Antonio Goel MD, 1,000 mcg at 05/30/23 08 furosemide (LASIX) tablet 20 mg, 20 mg, Oral, Daily, Antonio Goel MD, 20 mg at 05/30/23 08 gabapentin (NEURONTIN) capsule 600 mg, 600 mg, Oral, Nightly, Antonio Goel MD, 600 mg at 05/29/232056 HYDROmorphone (DILAUDID) tablet 2 mg, 2 mg, Oral, Q3H PRN, Morena Monteiro MD, 2 mg at 05/30/23 0851 hydrOXYzine HCl (ATARAX) tablet 25 mg, 25 mg, Oral, Q6H PRN, nAtonio Goel MD metoPROLOL TARTRATE (LOPRESSOR) tablet 25 mg, 25 mg, Oral, Q6H PRN, Antonio Goel MD ondansetron (ZOFRAN) injection 4 mg, 4 mg, Intravenous, Once PRN, Tomas Harden, MADYSON PANTOprazole (PROTONIX) injection 40 mg, 40 mg, Intravenous, BID, Antonio Goel MD, 40 mg at 05/30/23 0855 POTASSIUM phosphate IVPB 15 mmol in 250 mL NS (premix), 15 mmol, Intravenous, Once, ANISA Salazar pravastatin (PRAVACHOL) tablet 40 mg, 40 mg, Oral, Nightly, Antonio Goel MD, 40 mg at 05/29/232055 traZODone (DESYREL) tablet 25 mg, 25 mg, Oral, Nightly, Antonio Goel MD, 25 mg at 05/29/232056 venlafaxine (EFFEXOR-XR) 24 hr capsule 75 mg, 75 mg, Oral, Daily with breakfast, Antonio Goel MD, 75 mg at 05/30/23 0851 Last Vitals Pulse:86,Resp:18,BP:(!) 158/62,SpO2:94 %,Weight:54 kg (119 lb) Temp Last 24 hrs: Temp Min: 96.4 ?F (35.8 ?C) Max: 99.8 ?F (37.7 ?C) Intake/Output Summary (Last 24 hours) at 05/30/2023 1039 Last data filed at 05/30/2023 1032 Gross per 24 hour Intake 1900 ml Output -- Net 1900 ml Physical Exam General appearance: alert and cooperative Abdomen: Soft non tender nondistended Relevant data reviewed Results from last 7 days Lab Units 05/30/23 0601 05/29/23 0631 05/28/23 0708 WHITE BLOOD CELL COUNT Thou/uL 4.4 4.7 5.7 HEMOGLOBIN g/dL 9.0* 9.4* 10.1* HEMATOCRIT % 28.6* 29.9* 31.8* PLATELET COUNT Thou/uL 187 180 208 Results from last 7 days Lab Units 05/30/23 0601 GLUCOSE mg/dL 60* CALCIUM mg/dL 7.7* SODIUM mmol/L 140 POTASSIUM mmol/L 3.3* CO2 mmol/L 21* CHLORIDE mmol/L 106 BUN mg/dL 6* CREATININE mg/dL 0.6 Results from last 7 days Lab Units 05/30/23 0601 LIPASE U/L 62* Results from last 7 days Lab Units 05/27/23 1711 INR 1.0 Results from last 7 days Lab Units 05/30/23 0601 05/27/23 2356 05/27/23 1933 ALT U/L 111* < > -- AST U/L 107* < > -- GGT U/L -- -- 781* ALK PHOS U/L 311* < > -- BILIRUBIN TOTAL mg/dL 1.2* < > -- < > = values in this interval not displayed. MELD 3.0: 14 at 05/29/2023 6:31 AM MELD-Na: 12 at 05/29/2023 6:31 AM Calculated from: Serum Creatinine: 0.7 mg/dL (Using min of 1 mg/dL) at 05/29/2023 6:31 AM Serum Sodium: 138 mmol/L (Using max of 137 mmol/L) at 05/29/2023 6:31 AM Total Bilirubin: 4.5 mg/dL at 05/29/2023 6:31 AM Serum Albumin: 3.4 g/dL at 05/29/2023 6:31 AM INR(ratio): 1.0 at 05/27/2023 5:11 PM Age at listing (hypothetical): 68 years Sex: Female at 05/29/2023 6:31 AM Blood Products - last 72 hours Blood Administration View: 05/27/23 1039 to 05/30/23 1039 (72 Hours) Sort by: Time None Procedures ERCP 05/29/23 - A severe distal biliary stricture was found. A 10 Fr by 7 cm straight biliary stent was placed. - A pancreatic duct stricture was found. A 5 Fr by 9 cm single pigtail pancreatic stent was placed. Sign MER Nichole 05/30/2023 10:39 AM Hospital Medicine Progress Note LOS: 2 CODE:: Code Status Procedures Full Code Principal Problem: Biliary stricture (POA: Yes) Active Problems: Transaminitis (POA: Unknown) H/O ETOH abuse (POA: Yes) Macrocytic anemia (POA: Yes) Resolved Problems: Assessment & Plan Batsheva Kahn is a 68 y.o. female with PMH of?COPD as needed home 2 L O2, hypertension, newly diagnosed A-fib 04/2024 on Eliquis, previous?EtoH use disorder,?presents to as a transfer from [facility] in [place] due to abdominal pain and?biliary stricture?on imaging. Concern for after?MRCP?showed?ampullary level duct obstruction, new compared to 2016, chronic pancreatitis sequelae, pending ERCP. #Bililary stricture #Rule out Choledocholithiasis # Tranaminitis MRCP-ampullary level duct obstruction, new compared to 2016, chronic pancreatitis sequelae.CT abdomen showed distended gallbladder, trace pericholecystic fluid without gallbladder wall thickening, findings are equivocal for acute cholecystitis, CBD approximately 1.6 cm, diffuse pancreatic duct beadlike dilation. LFTs-AST/ALT 177/162 304, Lipase 145,T bilirubin 2.8. GGT elevated to 781. - NPO except meds - IV pantoprazole 40 mg IV BID -Normal saline infusion at 100 ml/hr -Dilaudid 1 mg every 3 hours as needed - trend LFTs - blood cultures negative x 2 -Monitor off antibiotics at this time, patient afebrile, no leukocytosis no signs of jaundice. She has an anaphylactic reaction to Ancef, would avoid cephalosporins. Likely levofloxacin + flagyl - alternatively can consider zosyn if she has tolerated penicillins in past ? #Hx alcohol use #Macrocytic Anemia She says her last drink was 2022. She says she used to drink up to 5 Vodka cocktails per day and denies current alcohol withdrawal symptoms. Blood ethanol <11, hepatitis panel negative, tox screen positive for cannabinoids and opioids, acetaminophen level within normal limits -Continue to monitor CBC ? #Hx COPD # Tobacco use Likely not in acute exacerbation however she is on 2 L O2. - breo ellipta daily - prn albuterol 2 puffs every 6 ? #A fib - newly diagnosed 04/2023 - holding eliquis for ERCP, will need to follow-up with GI of when to resume status post ERCP - Cardizem 30 mg QID ? #HTN #HLD - lasix, Cardizem, statin #Mood Disorder - Continue Effexor VTE Time Out IMPROVE SCORE: 1 (05/27/2023 6:34 PM) Interpretation - Low Risk Chemical Prophylaxis apixaban (ELIQUIS) tablet 5 mg Oral 2 times daily [ORDER ON HOLD or LAST DOSE HELD - Please Review] Mechanical Prophylaxis SCDs are ordered - Bilateral (Knee High) Patient declined SCD use, Please review Diet: N.p.o. Tele: Not applicable Lines: Peripheral IV GI ppx: 40 mg twice daily HCP/POA: Self Dispo: Medicine floors Expected Discharge Date: 05/30/2023 Subjective Patient examined at bedside. She states that she is still having diffuse abdominal pain but the Dilaudid does help. She states that after the Dilaudid 1 mg it is about a 5 out of 10. And when she does not have the Dilaudid goes her pain is about an 8 or 9 out of 10. I explained to her a bit of the ERCP as she did not know what this entailed. Objective Last Vitals Pulse:70,Resp:18,BP:(!) 130/50,SpO2:94 %,Weight:54 kg (119 lb) Temp Last 24 hrs: Temp Min: 96 ?F (35.6 ?C) Max: 97 ?F (36.1 ?C) Last temp: (!) 96.2 ?F (35.7 ?C) (Tympanic) Intake/Output Summary (Last 24 hours) at 05/29/2023 1356 Last data filed at 05/29/2023 1317 Gross per 24 hour Intake 2160 ml Output 0 ml Net 2160 ml Physical Exam: General: No acute distress. Well developed, well nourished. HEENT: Normocephalic, atraumatic. Moist mucous membranes. No scleral icterus. Cardiac: RRR. S1 and S2 normal. No murmurs, rubs, or gallops. Lungs: Chest rise symmetric. Clear to auscultation bilaterally. No wheezes, rales, or rhonchi. Abdomen: Soft, non-tender, non-distended + diffuse mild tenderness. + Moderate right upper quadrant abdominal tenderness. No rebound or guarding. Normoactive bowel sounds. Extremities: No peripheral edema. Skin: Warm, dry, and intact. No jaundice. Neuro: Alert and oriented x3. No focal neurologic deficits. Moving all extremities spontaneously. Relevant data reviewed Labs, Notes, Meds and Radiology Morena Monteiro MD 05/29/2023 1:56 PM Available on [place] Text Associated attestation - Nick Shell MD - 05/29/2023 5:47 PM EST Teaching Attending Inpatient Attestation: I have personally interviewed and examined the patient and reviewed Dr. Monteiro's note. I agree with the history, exam, assessment and plan as detailed in the Resident/Fellow's note with the following additions/exceptions/observations . Labs/Radiologic Studies were reviewed. Latest Reference Range & Units 05/27/23 23:56 05/28/23 07:08 05/29/23 06:31 Bilirubin Total 0.2 - 1.0 mg/dL 3.0 (H) 3.6 (H) 4.5 (H) Aspartate Aminotrans (AST/SGOT) 10 - 50 U/L 164 (H) 158 (H) 164 (H) Alanine Aminotrans (ALT) 10 - 50 U/L 145 (H) 136 (H) 132 (H) Alkaline Phosphatase 32 - 122 U/L 294 (H) 292 (H) 359 (H) (H): Data is abnormally high Latest Reference Range & Units 05/27/23 17:11 Lipase 13 - 60 U/L 145 (H) (H): Data is abnormally high The patient was transferred from [facility] in [place] for ERCP. Patient underwent ERCP with identification of severe distal biliary structure. 10 Welsh by 7 cm straight biliary strand was placed by GI. Pancreatic duct stricture was also found and a 5 Welsh by 9 cm single pigtail pancreatic stent was placed. Continue to trend LFTs / lipase and clinical abdominal exam for development of pancreatitis. Hold Eliquis, continue Cardizem 30 mg 4 times daily. Problem List Patient seen on 05/29/2023 Sign: Nick Shell MD 05/29/2023 5:41 PM 05/29/23 1047 General Information Admission Type inpatient Arrived From Hospital Referral Source admission list;patient Reason for Consult discharge planning Initial Information How to be Addressed Batsheva Source of Information patient;health record Stated Reason for Admission stomach pain Patient Aware of Diagnosis yes Limitations on Visitors/Phone Calls none Temporary Family Living Arrangements (While Hospitalized) none needed Admission in Past 90 Days none Adaptive Services not applicable Clinical Trial not applicable Designated Caregiver for Discharge Coordination Do You Have a Designated Caregiver for Discharge? yes Designated Caregiver's Name Jewels Caregiver's Relationship to Patient child protection specialist's Living Environment People in Home alone Current Living Arrangements apartment Duration at Residence 14 years Primary Care Provided by self Provides Primary Care For no one Family Caregiver if Needed child(chepe), adult Family Caregiver Names Jewels Quality of Family Relationships unable to assess Able to Return to Prior Arrangements yes Relationship/Environment Primary Source of Support/Comfort child(chepe) Name of Support/Comfort Primary Source Jewels Primary Roles/Responsibilities wage earner, full-time Resource/Environmental Concerns Transportation Concerns none Disability/Function Hearing Difficulty or Deaf no Wear Glasses or Blind no Concentrating, Remembering or Making Decisions Difficulty no Difficulty Communicating no Difficulty Eating/Swallowing no Walking or Climbing Stairs Difficulty no Dressing/Bathing Difficulty no Doing Errands Independently Difficulty (such as shopping) no Equipment Currently Used at Home none Change in Functional Status Since Onset of Current Illness/Injury no Functional Status Usual Activity Tolerance good Current Activity Tolerance good Functional Status, IADL Medications independent Meal Preparation independent Housekeeping independent Laundry independent Shopping independent Financial Resource Strain How hard is it for you to pay for the very basics like food, housing, medical care, and heating? Not hard Do you have any concerns about your current source of income or benefits No Living Arrangement Living arrangement: Alone Type of residence: Apartment Housing Stability In the last 12 months, was there a time when you were not able to pay the mortgage or rent on time? N In the last 12 months, how many places have you lived? 1 In the last 12 months, was there a time when you did not have a steady place to sleep or slept in a [place] [facility] (including now)? N For any of these three questions, do you currently receive assistance for this need? No Do you have any concerns about your current housing? No Food Insecurity Within the past 12 months, you worried that your food would run out before you got the money to buy more. Never true Within the past 12 months, the food you bought just didn't last and you didn't have money to get more. Never true Do you receive any assistance with food at this time? N Transportation Needs Do you currently have transportation available to you? Yes If yes, what transportation do you currently have available to you? Own Vehicle In the past 12 months, has lack of transportation kept you from medical appointments or from getting medications? no Do you currently receive assistance for this need? N In the past 12 months, has lack of transportation kept you from meetings, work, or from getting things needed for daily living? No Do you currently receive assistance for this need? N Utilities In the past 12 months has the [employer], [employer], or [employer] threatened to shut off services in your home? No Interpersonal Safety Within the last year, have you been afraid of anyone? No Within the last year, have you been humiliated or emotionally abused in other ways by anyone? No Within the last year, have you been kicked, hit, slapped, or otherwise physically hurt by anyone? No Within the last year, have you been raped or forced to have any kind of sexual activity by anyone? No Discharge Needs Assessment Readmission Within the Last 30 Days no previous admission in last 30 days Concerns to be Addressed denies needs/concerns at this time;no discharge needs identified Patient/Family Anticipates Transition to home Patient/Family Anticipated Services at Transition none Transportation Anticipated public transportation Discharge Coordination/Tasks Status PASRR Completed No Level of Care Completed No Plan Plan home routine Patient/Family in Agreement with Plan yes HOSPITAL MEDICINE PROGRESS NOTE Assessment & Plan Principal Problem: Biliary stricture (POA: Yes) Active Problems: Transaminitis (POA: Unknown) H/O ETOH abuse (POA: Yes) Macrocytic anemia (POA: Yes) Resolved Problems: Brief Summary 68 y/o F with pmh of COPD as needed home 2 L O2, hypertension, newly diagnosed A-fib 04/2024 on Eliquis, previous EtoH use disorder, presents to as a transfer from [facility] in [place] due to abdominal pain and biliary stricture on imaging. Concern for after MRCP showed ampullary level duct obstruction, new compared to 2016, chronic pancreatitis sequelae. Biliary Obstruction, suspect Biliary stricture related to prior pancreatitis Transminitis Patient transferred for OSH due to abdominal pain and imaging showing ampullary level duct obstruction, chronic pancreatitis sequelae CT abdomen showed distended gallbladder, trace pericholecystic fluid without gallbladder wall thickening, findings are equivocal for acute cholecystitis, CBD approximately 1.6 cm, diffuse pancreatic duct beadlike dilation approximately Plan: IVF continous Pain regimen Plan for likely ERCP today or tomorrow, will keep NPO for now Will continue to hold captain's assistant eliquis Antiemetics Alcohol Use Disorder Last drink Thanksgiving chronic medical conditions pAfib: will hold eliquis for now; will consider heparin gtt if procedure is deferred till tomorrow; continue cardizem HLD: continue statins HTN: continue lasix and cardizem Mood Disorder: continue effexor COPD: continue inhalers Quality Metrics DVT PROPHYLAXIS Risk Assessment Scores and Dates: VTE Time Out IMPROVE SCORE: 1 (05/27/2023 6:34 PM) Interpretation - Low Risk Chemical Prophylaxis apixaban (ELIQUIS) tablet 5 mg Oral 2 times daily [ORDER ON HOLD or LAST DOSE HELD - Please Review] Mechanical Prophylaxis SCDs are ordered - Bilateral (Knee High) Antibiotic Stewardship (Disclaimer : absence of data in section implies that patient is not on any antibiotics). ANTIBIOTIC TIME OUT Expected Date of Discharge 05/29/2023 Subjective Chief complaint Chief Complaint Patient presents with Abdominal Pain Patient is being seen for acute medical problems and follow-up for chronic medical issues as mentioned in the assessment and plan above. Overnight Events/Patient Discussion: patient seen and Examined at bedside. Reports some abdominal pain, but improved from prior. Objective Vitals: 05/27/23 2237 05/28/23 0017 05/28/23 0126 05/28/23 0339 BP: 134/65 (!) 106/52 (!) 119/57 Pulse: (!) 118 92 90 83 Resp: Temp: 97.8 ?F (36.6 ?C) SpO2: 95% 94% 98% 05/28/23 0524 05/28/23 0533 05/28/23 0734 05/28/23 1003 BP: 123/60 123/60 (!) 115/53 (!) 119/58 Pulse: 84 84 84 82 Resp: 16 16 Temp: 98.8 ?F (37.1 ?C) 97.5 ?F (36.4 ?C) SpO2: 96% 93% 92% Physical Exam Constitutional: General: She is not in acute distress. Appearance: Normal appearance. HENT: Head: Normocephalic and atraumatic. Cardiovascular: Rate and Rhythm: Normal rate and regular rhythm. Pulses: Normal pulses. Heart sounds: Normal heart sounds. No murmur heard. Pulmonary: Effort: Pulmonary effort is normal. No respiratory distress. Breath sounds: Normal breath sounds. Abdominal: General: Abdomen is flat. Palpations: Abdomen is soft. Tenderness: There is abdominal tenderness (mild). Musculoskeletal: General: No swelling. Skin: Coloration: Skin is not pale. Neurological: General: No focal deficit present. Mental Status: She is alert and oriented to person, place, and time. Relevant data reviewed Results from last 7 days Lab Units 05/28/23 0708 WHITE BLOOD CELL COUNT Thou/uL 5.7 HEMOGLOBIN g/dL 10.1* HEMATOCRIT % 31.8* PLATELET COUNT Thou/uL 208 Results from last 7 days Lab Units 05/28/23 0708 SODIUM mmol/L 138 POTASSIUM mmol/L 4.1 CHLORIDE mmol/L 103 CO2 mmol/L 25 BUN mg/dL 7* CREATININE mg/dL 0.6 EGFR >90 GLUCOSE mg/dL 64* CALCIUM mg/dL 8.9 Sign Lamont Knapp MD 05/28/2023 11:22 AM documented in this encounter [facility] 05-30-2023 Plan of care note Assumed care at [id number]. Patient is alert and oriented x4. Medicated per JUL. Complaints of abdominal pain, PRN IV Dilaudid given with good effect. Pt refused PO MD argelia made aware. On continuous IV NS at 100 ml/hr. All safety maintained. Will continue to monitor. Problem: Adult Inpatient Plan of Care Goal: Plan of Care Review Outcome: Progressing Goal: Patient-Specific Goal (Individualized) Outcome: Progressing Goal: Absence of Hospital-Acquired Illness or Injury Outcome: Progressing Goal: Optimal Comfort and Wellbeing Outcome: Progressing Goal: Readiness for Transition of Care Outcome: Progressing Problem: Skin Injury Risk Increased Goal: Skin Health and Integrity Outcome: Progressing Problem: Fall Injury Risk Goal: Absence of Fall and Fall-Related Injury Outcome: Progressing Problem: COPD (Chronic Obstructive Pulmonary Disease) Comorbidity Goal: Maintenance of COPD Symptom Control Outcome: Progressing Problem: Hypertension Comorbidity Goal: Blood Pressure in Desired Range Outcome: Progressing Problem: Pain Acute Goal: Optimal Pain Control and Function Outcome: Progressing Dougie Marr 05/30/2023 8:09 AM [facility] Work Phone: 05-29-2023 Plan of care note Assumed care at 0700. A&Ox4. VSS. Cont. on ivf. NPO pending procedure. C/o abd & back pain managed with prn dilaudid. Went for ERCP this afternoon. NPO x4 hrs post-procedure then ok to advance to clear liquid diet per GI - MD made aware. Refusing fall alarm, ambulating independently in the room. Malia Chou 05/29/2023 6:07 PM [facility] 05-29-2023 Plan of care note PLAN OF CARE I was notified by the nurse that patient is very angry and upset that she has not gone for ERCP yet. When I went to assess her, she was stating that she will leave tomorrow by noon if it is not done by then. When I attempted to explain the risks of her leaving and said her findings were still urgent for an ERCP, she interrupted me and stated if this is an urgent case, then why she is my ERCP so delayed until tonight . Morena Monteiro PGY1 Physical Medicine & Rehabilitation [employer] [facility] 05-29-2023 Plan of care note Initial Case Management Care Plan Note Assessment completed with patient, medical record review and discussion with clinical team. CC met with the patient using social distancing. Provided a Case Coordination packet with contact information, CC pamphlet and Your Next Step: Care Outside the Hospital brochure to the patient. Summary: Patient is a 68 year old female with history of COPD with home O2 as needed, hypertension, newly diagnosed A-fib, previous ETOH disorder who was transferred from [facility] due to abdominal pain and biliary stricture on imaging. rehabilitation case coordinator met with patient at bedside. She lives alone in a 1st level apartment. She is independent, drives, and works full-time. She declined any services but will need a taxi ride home. Anticipated transition plan: home routine Caregiver/responsible person supports: children PCP: Anna Tristan Anticipated transportation: taxi Referrals made: None Barriers to discharge: ERCP Problem: Adult Inpatient Plan of Care Goal: Readiness for Transition of Care Outcome: Progressing Jill Estes 05/29/2023 10:50 AM [facility] 05-29-2023 Plan of care note Assumed care [id number]. A&Ox4. C/o 11/27 abd pain radiating to her back, prn dilaudid given x2. IVF continued. NPO at midnight. Refusing fall alarm despite education but calling for assistance appropriately. All safety maintained. Problem: Adult Inpatient Plan of Care Goal: Plan of Care Review Outcome: Progressing Goal: Patient-Specific Goal (Individualized) Outcome: Progressing Goal: Absence of Hospital-Acquired Illness or Injury Outcome: Progressing Goal: Optimal Comfort and Wellbeing Outcome: Progressing Goal: Readiness for Transition of Care Outcome: Progressing Problem: Skin Injury Risk Increased Goal: Skin Health and Integrity Outcome: Progressing Problem: Fall Injury Risk Goal: Absence of Fall and Fall-Related Injury Outcome: Progressing Problem: COPD (Chronic Obstructive Pulmonary Disease) Comorbidity Goal: Maintenance of COPD Symptom Control Outcome: Progressing Problem: Hypertension Comorbidity Goal: Blood Pressure in Desired Range Outcome: Progressing Problem: Pain Acute Goal: Optimal Pain Control and Function Outcome: Progressing Izabela Hernandez 05/29/2023 7:07 AM [facility] Work Phone: 05-28-2023 Plan of care note New admit from ED at 1:30pm. A&Ox3 - off to time. VSS on RA (wears 2L NC prn at baseline). Cont. on ivf. Endorsing 8/10 lower abd & back pain, managed with prn IV dilaudid with some effect. 4 eyes skin assessment completed. Educated on use of call bunch for assistance. Standby assist OOB. Will be NPO at midnight for ERCP tomorrow. Safety maintained. Malia Chou 05/28/2023 6:20 PM [facility] 05-28-2023 Emergency department Note S Situation Batsheva Kahn is a 68 y.o. female with a chief complaint of Abdominal Pain Batsheva Kahn is being admitted with an admitting diagnosis of: 1. Abdominal pain 2. Transaminitis 3. Hyperbilirubinemia . B Background Stated Reason for Visit: [facility], CBD stricture, needs ERCP, co abd pain, back pain, no cp/sob/n/v/fever/chills. A Assessment Neuro/Cognitive Assessment: Cognitive/Neuro/Behavioral WDL: WDL Level of Consciousness: alert CIWA-Ar Total: 2 Skin Assessment: Skin WDL: WDL Cardiac Rhythm: Rhythm: normal sinus rhythm Focused Assessment: Pt is A+Ox4, speaking in clear, full, coherent sentences, able to follow commands. RR even, equal bilateral, non labored, in 2L on a concentrator. Pt has a hx of COPD, Pt endorsing back and abd pain 5/10. Pt denies any chest pain, SOB, abd pain, headache, dizziness. Abd is soft, non tender, no distention noted, Isolation: No active isolations Critical labs: n/a Recent Labs 05/28/23 0708 GLUC 64* Type of Diabetes:N/A Insulin Pump:N/A Insulin Therapy (fast-acting):N/A Insulin Therapy (long-acting):N/A Interventions performed: Medicated per JUL R Recommendation Special Needs or Precautions: HOLDING eliquis Pending tests or interventions: Pending ERCP Eleonora Keane RN 05/28/23 11:54 AM Phone number: [phone] Eleonora Keane RN 05/28/23 1158 [facility] Work Phone: 05-28-2023 Emergency department Note S Situation Batsheva Kahn is a 68 y.o. female with a chief complaint of Abdominal Pain Batsheva Kahn is being admitted with an admitting diagnosis of: 1. Abdominal pain 2. Transaminitis 3. Hyperbilirubinemia . B Background Stated Reason for Visit: [facility], CBD stricture, needs ERCP, co abd pain, back pain, no cp/sob/n/v/fever/chills. A Assessment Neuro/Cognitive Assessment: Cognitive/Neuro/Behavioral WDL: WDL Level of Consciousness: alert CIWA-Ar Total: 2 Skin Assessment: Skin WDL: WDL Cardiac Rhythm: Rhythm: normal sinus rhythm Focused Assessment: Pt is A+Ox4, speaking in clear, full, coherent sentences, able to follow commands. RR even, equal bilateral, non labored, in 2L on a concentrator. Pt has a hx of COPD, Pt endorsing back and abd pain 5/10. Pt denies any chest pain, SOB, abd pain, headache, dizziness. Abd is soft, non tender, no distention noted, Isolation: No active isolations Critical labs: n/a Recent Labs 05/28/23 0708 GLUC 64* Type of Diabetes:N/A Insulin Pump:N/A Insulin Therapy (fast-acting):N/A Insulin Therapy (long-acting):N/A Interventions performed: Medicated per MAR R Recommendation Special Needs or Precautions: HOLDING eliquis Pending tests or interventions: Pending ERCP Eleonora Keane RN 05/28/23 11:54 AM Phone number: [phone] Eleonora Keane RN 05/28/23 1155 Pt resting in stretcher in NAD. RR are even, equal bilateral, non labored in 2L on a concentrator. Pt endorsing back and abd pain 5/10 even after being medicated. Pt denies any other needs att. Eleonora Keane RN 05/28/23 1011 Pt alert and oriented x 4, calm and cooperative, in NAD. Speaking in clear, full, coherent sentences. RR is even, equal bilateral non labored in a concentrator 2L. Pt endorsing back pain 8/10 and abd pain 5/10, medicated per MAR. Pt aware she is NPO pending GI consult. Eleonora Keane RN 05/28/23 0821 I have acknowledged/accepted the hand off of care for this patient. Pt is resting in stretcher in NAD. RR even, equal bilateral non labored in a concentrator 2L. Pt endorsing back pain 7/10 at this time. Denies any SOB. Eleonora Keane RN 05/28/23 0744 Report given to Eleonora CLEMONS and care transferred at this time. Belkys Birmingham RN 05/28/23 0731 Report given to KACI Katz and care transferred at this time. Elaine Bee RN 05/28/23 0724 Medicated per JUL for pain. Pt unable to sleep in hallway. Appearing in no acute distress att. Plan for ERCP this morning. Elaine Bee RN 05/28/23 0607 Pt to ambulated to the restroom with a PASTING MACHINE OFFBEARER with a steady gait. Elaine Bee RN 05/28/23 0419 Pt refusing to take cardizem per MAR. Per pt, it makes her shaky. Provider notified. Comfort needs addressed. Appearing in no acute distress att. Elaine Bee RN 05/28/23 0025 A&Ox4, speaking in clear full sentences. Pt endorsing abd pain. Denies any N/V, SOB/CP. Breathing is equal and unlabored on RA. Skin pwd. Neuros intact. Assisted to bedpan by PASTING MACHINE OFFBEARER. Xray and phleb at bedside. Pt took off oxygen probe. O2 sat 94-96% on RA. Plan for admit to IP. Elaine Bee RN 05/27/232004 I have acknowledged/accepted the hand off of care for this patient. Elaine Bee RN 05/27/23 583 History Chief Complaint Patient presents with Abdominal Pain HPI: I reviewed any nurses notes, vital signs, home medication list, other history or pertinent diagnostic tests available History provided by: The patient and medical records Associated symptoms and Additional history: Pt is a 68-year-old female with past medical history of atrial fibrillation, COPD and EtOH abuse. Presenting to emergency department with c/o diffuse abd pain. States most of the discomfort she is feeling at this time is in her back. Patient coming from outside hospital as a transfer. CT done showed CBD dilation. GI at [facility] did MRCP which shows a stricture in CBD at level of the ampulla with obstruction. Pt needs ERCP which the referring facility can not do. Patient is denying any fever/chills. Additional HPI Past Medical History: Diagnosis Date A-fib (HCC) COPD (chronic obstructive pulmonary disease) (HCC) ETOH abuse No past surgical history on file. No family history on file. Review of Systems Respiratory: Negative. Cardiovascular: Negative. All other systems negative x 10 except where noted in HPI or above Physical Exam BP (!) 142/72 Pulse 88 Temp 97.3 ?F (36.3 ?C) (Tympanic) Resp 16 SpO2 98% Physical Exam Vitals and nursing note reviewed. Constitutional: General: She is not in acute distress. Appearance: She is not toxic-appearing. Thin and uncomfortable appearing lady laying in stretcher. Cardiovascular: Rate and Rhythm: Normal rate and regular rhythm. Heart sounds: Normal heart sounds. Pulmonary: Effort: Pulmonary effort is normal. Breath sounds: Normal breath sounds. Abdominal: General: Bowel sounds are normal. There is no distension. Palpations: Abdomen is soft. Tenderness: There is no guarding or rebound. Mild tenderness to palpation of the upper abdomen/epigastric region. Musculoskeletal: General: Normal range of motion. Skin: General: Skin is warm and dry. Neurological: Mental Status: She is alert. ED Course Final diagnoses: None MDM: Number and Complexity of Problems Addressed MDM Detail: Patient presenting to emergency department due to need for further treatment from outside hospital. Will send [place] text information to gastroenterology and have patient admitted to medicine. Will continue to manage her discomfort while here in the emergency department. Amount and Complexity of Data Risk of Complications and/or Morbidity or Mortality of Patient Management Critical Care GABRIEL Archive for reference only DX GABRIEL Archive for reference only MR GABRIEL Archive for reference only US GABRIEL Archive for reference only CT [facility] [place] 05/27/23 1738 Associated attestation - Kenji Escobedo DO - 05/27/2023 6:59 PM EST I personally saw the patient and performed a substantive portion of the visit including all aspects of the medical decision-making. I reviewed the AP's or resident's findings, supervised the management of the patient, made/approved the management plan and take responsibility for the patient management. Further, I agree with the controlled substance prescriptions(s) and/or order(s) as written by the AP, if any. My note reflects my personal findings on my history and exam. This is a 68-year-old female presenting to the emergency department from outside hospital for common bile duct dilation secondary to stricture as visualized on MRCP being transferred to [facility] for GI evaluation and ERCP in the setting of generalized abdominal pain for 3 days On arrival, patient is afebrile, nontoxic-appearing, and abdomen is soft, nontender nondistended without rebound, guarding or peritoneal signs. During the course of the patient's evaluation, acute cholangitis was considered though appears less likely at this time as patient is without fever, shakes or chills, leukocytosis or leukopenia, or jaundice therefore not meeting [place] guidelines for acute cholangitis. Suspect elevated elevated LFTs, alkaline phosphatase and bilirubin in setting of known obstruction. Low threshold to initiate antibiotics in the event patient becomes febrile or developes chills. Case discussed with on-call gastroenterology team. Plan for patient to be admitted for GI evaluation and planned ERCP with patient to be n.p.o. at midnight. documented in this encounter [facility] 05-28-2023 Emergency department Note Pt resting in stretcher in NAD. RR are even, equal bilateral, non labored in 2L on a concentrator. Pt endorsing back and abd pain 5/10 even after being medicated. Pt denies any other needs att. Eleonora Keane RN 05/28/23 1011 [facility] 05-28-2023 Consult note Associated Order (s): IP CONSULT TO GASTROENTEROLOGY Gastroenterology Consult Note Date of Consult: 05/28/2023 Patient's Primary Care Physician: Fernie Tristan MD Physician Requesting Consult: Dr. Knapp Reason for Consultation: biliary obstruction Name: Batsheva Kahn Age: 68 y.o. Sex: female Principal Problem: Biliary stricture (POA: Yes) Active Problems: Transaminitis (POA: Unknown) H/O ETOH abuse (POA: Yes) Macrocytic anemia (POA: Yes) Resolved Problems: Assessment & Plan Assessment 68F with COPD on as needed supplemental O2, HTN, newly diagnosed A-fib on Eliquis (last dose yesterday morning), history of EtOH use disorder (last drink 2022), history of alcohol pancreatitis, transferred to [facility] with concern for biliary obstruction. Suspect biliary stricture related to prior pancreatitis. Plan Please keep patient n.p.o. for now. Will require ERCP, though timing to be determined- later today versus tomorrow after Eliquis is washed out. Please keep Eliquis on hold. Daily LFTs. Supportive care with pain control and antiemetics as needed. Follow-up pending blood cultures. Follow-up flu/RSV/COVID test. Will discuss with Dr. Franco. Please [place] text CTGI A with questions. Subjective Chief Complaint Abdominal pain History of Present Illness 68F with COPD on supplemental O2 prn, HTN, newly diagnosed A Fib on Eliquis (last dose yesterday AM), h/o EtOH use disorder (last drink 2022), h/o EtOH pancreatitis Feb/Mar 2023, transferred to from [facility] with concern for biliary obstruction. Developed abdominal pain 3-4 days ago without obvious trigger. Pain is primarily in right upper quadrant, though does wrap all the way around her abdomen. No associated fever but reports chills. +nausea. No similar pain in the past. At OSH, she was found to have elevated LFTs and underwent CT, ultrasound, MRI as below. CT: Distended gallbladder with significant intra and extrahepatic biliary ductal dilatation with CBD measuring up to 1.4 cm. No radiodense gallstone. Also showed parenchymal calcifications in the head/uncinate process with similar main duct dilatation up to 0.5 cm which may represent sequela of chronic pancreatitis. Right upper quadrant ultrasound showed distended gallbladder with trace pericholecystic fluid without gallbladder wall thickening, equivocal for acute cholecystitis biliary and pancreatic ductal dilatation may represent choledochal lysis or biliary stricture. MRI showed extrahepatic bile duct dilation up to approximately 1.6 caliber CBD with smooth tapering to the ampulla, intrahepatic bile duct dilatation, diffuse pancreatic duct beaded like dilation measuring up to approximately 0.6 cm in caliber. Gallbladder overdistended with pericholecystic fluid. Labs: No leukocytosis. H/H10.1/31.8 from 11.3/36.3 yesterday. Platelets 208K. NA 138, K4.1. BUN 7, creatinine 0.6. LFTs: TB 2.8 up to 3.6, AST/ALT 158/136, alk phos 292. Lipase is 145. INR 1.0. Blood cultures are in process. Acute hepatitis panel is pending. COVID/flu/RSV testing in process as well. Review of Systems A 10 point ROS was conducted and found to be negative except as stated above. Objective Past Medical History: Past Surgical History: Past Medical History: Diagnosis Date A-fib (HCC) COPD (chronic obstructive pulmonary disease) (HCC) ETOH abuse History reviewed. No pertinent surgical history. Family / Social History: History reviewed. No pertinent family history. Social History Socioeconomic History Marital status: Spouse name: Not on file Number of children: Not on file Years of education: Not on file Highest education level: Not on file Occupational History Not on file Tobacco Use Smoking status: Former Packs/day: 3.00 Years: 50.00 Additional pack years: 0.00 Total pack years: 150.00 Types: Cigarettes Quit date: 03/20/2023 Years since quittin.1 Smokeless tobacco: Never Substance and Sexual Activity Alcohol use: Not Currently Comment: 4-5 vodka drinks per day, stopped 04/2023 Drug use: Not Currently Sexual activity: Not on file Other Topics Concern Not on file Social History Narrative Not on file Social Determinants of Health Financial Resource Strain: Not on file Food Insecurity: Not on file Transportation Needs: Not on file Physical Activity: Not on file Stress: Not on file Social Connections: Not on file Housing Stability: Not on file Allergies: Allergies Allergen Reactions Cefazolin Anaphylaxis Ketorolac Tromethamine Anaphylaxis Cephalexin Photosensitivity Scheduled Medications: [Provider Held] apixaban, 5 mg, Oral, BID [Provider Held] clopidogrel, 75 mg, Oral, Daily cyanocobalamin, 250 mcg, Oral, Daily [Provider Held] diltiazem, 30 mg, Oral, Q6H fluticasone-vilanterol, 1 puff, Inhalation, Daily folic acid, 1,000 mcg, Oral, Daily furosemide, 20 mg, Oral, Daily gabapentin, 600 mg, Oral, Nightly PANTOprazole, 40 mg, Intravenous, BID pravastatin, 40 mg, Oral, Nightly traZODone, 25 mg, Oral, Nightly venlafaxine, 75 mg, Oral, Daily with breakfast (Not in a hospital admission) Physical Exam Vitals: 05/28/23 0524 05/28/23 0533 05/28/23 0734 05/28/23 1003 BP: 123/60 123/60 (!) 115/53 (!) 119/58 BP Location: Right arm Right arm Right arm Patient Position: Lying Sitting Lying Pulse: 84 84 84 82 Resp: 16 16 16 Temp: 98.8 ?F (37.1 ?C) 97.5 ?F (36.4 ?C) TempSrc: Tympanic Oral SpO2: 96% 93% 92% No intake or output data in the 24 hours ending 05/28/23 1008 General appearance: alert and cooperative Eyes: + icterus Abdomen: Soft, non distended, diffuse ttp worst in RUQ Relevant data reviewed: Results from last 7 days Lab Units 05/28/23 0708 WHITE BLOOD CELL COUNT Thou/uL 5.7 HEMOGLOBIN g/dL 10.1* HEMATOCRIT % 31.8* MCV fL 112* PLATELET COUNT Thou/uL 208 Results from last 7 days Lab Units 05/28/23 0708 05/27/23 1711 WHITE BLOOD CELL COUNT Thou/uL 5.7 7.3 HEMOGLOBIN g/dL 10.1* 11.3* HEMATOCRIT % 31.8* 36.3 PLATELET COUNT Thou/uL 208 223 Results from last 7 days Lab Units 05/28/23 0708 05/27/23 2356 05/27/23 1933 ALT U/L 136* < > -- AST U/L 158* < > -- GGT U/L -- -- 781* ALK PHOS U/L 292* < > -- BILIRUBIN TOTAL mg/dL 3.6* < > -- < > = values in this interval not displayed. Results from last 7 days Lab Units 05/27/23 1711 INR 1.0 Results from last 7 days Lab Units 05/28/23 0708 GLUCOSE mg/dL 64* CALCIUM mg/dL 8.9 SODIUM mmol/L 138 POTASSIUM mmol/L 4.1 CO2 mmol/L 25 CHLORIDE mmol/L 103 BUN mg/dL 7* CREATININE mg/dL 0.6 Results from last 7 days Lab Units 05/27/23 1711 LIPASE U/L 145* Blood Products - past 72 hours Blood Administration View: 05/25/23 1008 to 05/28/23 1008 (72 Hours) Sort by: Time None Sign: MER Nichole 05/28/2023 10:08 AM Associated attestation - Edilberto Franco MD - 05/28/2023 11:45 AM EST Attending Attestation I have personally seen and examined patient. I agree with HPI, A&P outlined below by MER Nichole Briefly, Batsheva Kahn is a 68 y.o. year old female with COPD, HTN, Afib on Eliquis, h/o of Etoh use, h/o ETOH pancreatitis transferred with biliary obstruction MRI showed extrahepatic bile duct dilation up to approximately 1.6 caliber CBD with smooth tapering to the ampulla, intrahepatic bile duct dilatation, diffuse pancreatic duct beaded like dilation measuring up to approximately 0.6 cm in caliber. Gallbladder overdistended with pericholecystic fluid Bili 3.6; Alk phos 292 Impression: Biliary Stricture Prob secondary to pancreatitis vs CBD stone Plan: Will proceed with ERCP Vitals: 05/28/23 0524 05/28/23 0533 05/28/23 0734 05/28/23 1003 BP: 123/60 123/60 (!) 115/53 (!) 119/58 BP Location: Right arm Right arm Right arm Patient Position: Lying Sitting Lying Pulse: 84 84 84 82 Resp: 16 16 16 Temp: 98.8 ?F (37.1 ?C) 97.5 ?F (36.4 ?C) TempSrc: Tympanic Oral SpO2: 96% 93% 92% No intake or output data in the 24 hours ending 05/28/23 1135 On examination, pertinent findings include Abd - soft + BS non-tender, non-distended, no HSM Review on labs and imaging was done and shows CBC Results from last 7 days Lab Units 05/28/23 0708 05/27/23 1711 WHITE BLOOD CELL COUNT Thou/uL 5.7 7.3 HEMOGLOBIN g/dL 10.1* 11.3* HEMATOCRIT % 31.8* 36.3 PLATELET COUNT Thou/uL 208 223 Electrolytes and Lactate Recent Labs 05/28/23 0708 PLT 208 NA 138 K 4.1 CL 103 CO2 25 ANIONGAP 10 BUN 7* CREAT 0.6 LACTIC 0.5 Hepatic Function/Pancreatic enzymes Recent Labs 05/27/23 1711 05/27/23 2356 05/28/23 0708 AST 177* 164* 158* ALT 162* 145* 136* ALKPHOS 304* 294* 292* BILITOT 2.8* 3.0* 3.6* ALBUMIN 4.1 3.5 3.6 PROT 6.5 5.7* 5.7* Results from last 7 days Lab Units 05/27/23 1711 LIPASE U/L 145* Coagulation Studies Recent Labs 05/27/23 1711 LABPROT 11.9 INR 1.0 Blood Products - past 72 hours Blood Administration View: 05/25/23 1135 to 05/28/23 1135 (72 Hours) Sort by: Time None C. Difficile: No results found for: CDIFFTOX , NAP1 ROS - No additions or deletions from below note Past Medical History: Past Surgical History: Past Medical History: Diagnosis Date A-fib (HCC) COPD (chronic obstructive pulmonary disease) (HCC) ETOH abuse History reviewed. No pertinent surgical history. Family / Social History: History reviewed. No pertinent family history. Social History Socioeconomic History Marital status: Spouse name: Not on file Number of children: Not on file Years of education: Not on file Highest education level: Not on file Occupational History Not on file Tobacco Use Smoking status: Former Packs/day: 3.00 Years: 50.00 Additional pack years: 0.00 Total pack years: 150.00 Types: Cigarettes Quit date: 03/20/2023 Years since quittin.1 Smokeless tobacco: Never Substance and Sexual Activity Alcohol use: Not Currently Comment: 4-5 vodka drinks per day, stopped 04/2023 Drug use: Not Currently Sexual activity: Not on file Other Topics Concern Not on file Social History Narrative Not on file Social Determinants of Health Financial Resource Strain: Not on file Food Insecurity: Not on file Transportation Needs: Not on file Physical Activity: Not on file Stress: Not on file Social Connections: Not on file Housing Stability: Not on file Allergies: Allergies Allergen Reactions Cefazolin Anaphylaxis Ketorolac Tromethamine Anaphylaxis Cephalexin Photosensitivity Current Medication List Medications Scheduled Medication Ordered Dose/Rate, Route, Frequency Last Action [Provider Held] apixaban (ELIQUIS) tablet 5 mg On hold since yesterday at 1914 until manually unheld; held by Yani Dorantes Reason: Pre-procedure On hold since yesterday at 1914 until manually unheld Hold reason: Pre-procedure 5 mg, PO, BID Ordered [Provider Held] clopidogrel (PLAVIX) tablet 75 mg On hold since yesterday at 1914 until manually unheld; held by Yani Dorantes Reason: Pre-procedure On hold since yesterday at 1914 until manually unheld Hold reason: Pre-procedure 75 mg, PO, Daily Ordered cyanocobalamin (VITAMIN B-12) tablet 250 mcg 250 mcg, PO, Daily Given, 250 mcg at 05/28 802 [Provider Held] diltiazem (CARDIZEM) tablet 30 mg On hold since today at 30 until manually unheld; held by Yani Dorantes Reason: Other - Comment requiredHold Comments: Patient refusing On hold since today at 003 until manually unheld Hold reason: Other - Comment required, Hold comment: Patient refusing 30 mg, PO, Q6H Ordered fluticasone-vilanterol (BREO ELLIPTA) 100-25 MCG/ACT inhaler 1 puff 1 puff, IN, Daily Given, 1 puff at 05/28 806 folic acid (FOLVITE) tablet 1,000 mcg 1,000 mcg, PO, Daily Given, 1,000 mcg at 05/28 803 furosemide (LASIX) tablet 20 mg 20 mg, PO, Daily Given, 20 mg at 05/28 802 gabapentin (NEURONTIN) capsule 600 mg 600 mg, PO, Nightly Given, 600 mg at 05/27 2047 PANTOprazole (PROTONIX) injection 40 mg 40 mg, IV, BID Given, 40 mg at 05/28 805 pravastatin (PRAVACHOL) tablet 40 mg 40 mg, PO, Nightly Given, 40 mg at 05/27 2048 traZODone (DESYREL) tablet 25 mg 25 mg, PO, Nightly Given, 25 mg at 05/27 2048 venlafaxine (EFFEXOR-XR) 24 hr capsule 75 mg 75 mg, PO, Daily with breakfast Given, 75 mg at 05/28 802 Continuous Medication Ordered Dose/Rate, Route, Frequency Last Action sodium chloride 0.9% (NS) infusion 100 mL/hr, 100 mL/hr, IV, Continuous New Bag, 100 mL/hr, 100 mL/hr at 05/27 2056 PRN Medication Ordered Dose/Rate, Route, Frequency Last Action albuterol (PROVENTIL HFA; VENTOLIN HFA) inhaler 2 puff 2 puff, IN, Q6H PRN Ordered HYDROmorphone (DILAUDID) injection 0.5 mg 0.5 mg, IV, Q3H PRN Given, 0.5 mg at 05/28 807 hydrOXYzine HCl (ATARAX) tablet 25 mg 25 mg, PO, Q6H PRN Ordered metoPROLOL TARTRATE (LOPRESSOR) tablet 25 mg 25 mg, PO, Q6H PRN Ordered XR Chest 1 view-Portable Result Date: 05/27/2023 EXAMINATION: XR CHEST CLINICAL INFORMATION: hx COPD, cough COMPARISON: Chest radiograph 05/26/2023. TECHNIQUE: AP portable upright view of the chest was obtained. FINDINGS: The lungs are well expanded. Chronic emphysema. There is no focal consolidation, overt edema, or effusion. No pneumothorax. The cardiomediastinal silhouette is normal and unchanged. No acute osseous abnormality. No acute pulmonary disease. Db Queen DO Entertainment Reporter I personally reviewed the images and the Resident's preliminary report and AGREE with the report as it is now presented ([id number]). GABRIEL Archive for reference only US Result Date: 05/27/2023 This order has been auto-finalized and does not contain a result. [facility] Archive for reference only MR Result Date: 05/27/2023 This order has been auto-finalized and does not contain a result. [facility] Archive for reference only CT Result Date: 05/27/2023 This order has been auto-finalized and does not contain a result. [facility] Archive for reference only DX Result Date: 05/27/2023 This order has been auto-finalized and does not contain a result. GABRIEL Archive for reference only CT Result Date: 05/27/2023 This order has been auto-finalized and does not contain a result. GABRIEL Archive for reference only US Result Date: 05/27/2023 This order has been auto-finalized and does not contain a result. GABRIEL Archive for reference only MR Result Date: 05/27/2023 This order has been auto-finalized and does not contain a result. Thank you for letting me participate in the care of your patient. If you have any questions or concerns, please don't hesitate to contact me at any time. Edilberto Franco MD 05/28/2023 11:35 AM [facility] 05-28-2023 Consult note Associated Order (s): IP CONSULT TO GASTROENTEROLOGY Gastroenterology Consult Note Date of Consult: 05/28/2023 Patient's Primary Care Physician: Fernie Tristan MD Physician Requesting Consult: Dr. Knapp Reason for Consultation: biliary obstruction Name: Batsheva Kahn Age: 68 y.o. Sex: female Principal Problem: Biliary stricture (POA: Yes) Active Problems: Transaminitis (POA: Unknown) H/O ETOH abuse (POA: Yes) Macrocytic anemia (POA: Yes) Resolved Problems: Assessment & Plan Assessment 68F with COPD on as needed supplemental O2, HTN, newly diagnosed A-fib on Eliquis (last dose yesterday morning), history of EtOH use disorder (last drink 2022), history of alcohol pancreatitis, transferred to [facility] with concern for biliary obstruction. Suspect biliary stricture related to prior pancreatitis. Plan Please keep patient n.p.o. for now. Will require ERCP, though timing to be determined- later today versus tomorrow after Eliquis is washed out. Please keep Eliquis on hold. Daily LFTs. Supportive care with pain control and antiemetics as needed. Follow-up pending blood cultures. Follow-up flu/RSV/COVID test. Will discuss with Dr. Franco. Please [place] text [facility] A with questions. Subjective Chief Complaint Abdominal pain History of Present Illness 68F with COPD on supplemental O2 prn, HTN, newly diagnosed A Fib on Eliquis (last dose yesterday AM), h/o EtOH use disorder (last drink 2022), h/o EtOH pancreatitis Feb/Mar 2023, transferred to from [facility] with concern for biliary obstruction. Developed abdominal pain 3-4 days ago without obvious trigger. Pain is primarily in right upper quadrant, though does wrap all the way around her abdomen. No associated fever but reports chills. +nausea. No similar pain in the past. At OSH, she was found to have elevated LFTs and underwent CT, ultrasound, MRI as below. CT: Distended gallbladder with significant intra and extrahepatic biliary ductal dilatation with CBD measuring up to 1.4 cm. No radiodense gallstone. Also showed parenchymal calcifications in the head/uncinate process with similar main duct dilatation up to 0.5 cm which may represent sequela of chronic pancreatitis. Right upper quadrant ultrasound showed distended gallbladder with trace pericholecystic fluid without gallbladder wall thickening, equivocal for acute cholecystitis biliary and pancreatic ductal dilatation may represent choledochal lysis or biliary stricture. MRI showed extrahepatic bile duct dilation up to approximately 1.6 caliber CBD with smooth tapering to the ampulla, intrahepatic bile duct dilatation, diffuse pancreatic duct beaded like dilation measuring up to approximately 0.6 cm in caliber. Gallbladder overdistended with pericholecystic fluid. Labs: No leukocytosis. H/H10.1/31.8 from 11.3/36.3 yesterday. Platelets 208K. NA 138, K4.1. BUN 7, creatinine 0.6. LFTs: TB 2.8 up to 3.6, AST/ALT 158/136, alk phos 292. Lipase is 145. INR 1.0. Blood cultures are in process. Acute hepatitis panel is pending. COVID/flu/RSV testing in process as well. Review of Systems A 10 point ROS was conducted and found to be negative except as stated above. Objective Past Medical History: Past Surgical History: Past Medical History: Diagnosis Date A-fib (HCC) COPD (chronic obstructive pulmonary disease) (HCC) ETOH abuse History reviewed. No pertinent surgical history. Family / Social History: History reviewed. No pertinent family history. Social History Socioeconomic History Marital status: Spouse name: Not on file Number of children: Not on file Years of education: Not on file Highest education level: Not on file Occupational History Not on file Tobacco Use Smoking status: Former Packs/day: 3.00 Years: 50.00 Additional pack years: 0.00 Total pack years: 150.00 Types: Cigarettes Quit date: 03/20/2023 Years since quittin.1 Smokeless tobacco: Never Substance and Sexual Activity Alcohol use: Not Currently Comment: 4-5 vodka drinks per day, stopped 04/2023 Drug use: Not Currently Sexual activity: Not on file Other Topics Concern Not on file Social History Narrative Not on file Social Determinants of Health Financial Resource Strain: Not on file Food Insecurity: Not on file Transportation Needs: Not on file Physical Activity: Not on file Stress: Not on file Social Connections: Not on file Housing Stability: Not on file Allergies: Allergies Allergen Reactions Cefazolin Anaphylaxis Ketorolac Tromethamine Anaphylaxis Cephalexin Photosensitivity Scheduled Medications: [Provider Held] apixaban, 5 mg, Oral, BID [Provider Held] clopidogrel, 75 mg, Oral, Daily cyanocobalamin, 250 mcg, Oral, Daily [Provider Held] diltiazem, 30 mg, Oral, Q6H fluticasone-vilanterol, 1 puff, Inhalation, Daily folic acid, 1,000 mcg, Oral, Daily furosemide, 20 mg, Oral, Daily gabapentin, 600 mg, Oral, Nightly PANTOprazole, 40 mg, Intravenous, BID pravastatin, 40 mg, Oral, Nightly traZODone, 25 mg, Oral, Nightly venlafaxine, 75 mg, Oral, Daily with breakfast (Not in a hospital admission) Physical Exam Vitals: 05/28/23 0524 05/28/23 0533 05/28/23 0734 05/28/23 1003 BP: 123/60 123/60 (!) 115/53 (!) 119/58 BP Location: Right arm Right arm Right arm Patient Position: Lying Sitting Lying Pulse: 84 84 84 82 Resp: 16 16 16 Temp: 98.8 ?F (37.1 ?C) 97.5 ?F (36.4 ?C) TempSrc: Tympanic Oral SpO2: 96% 93% 92% No intake or output data in the 24 hours ending 05/28/23 1008 General appearance: alert and cooperative Eyes: + icterus Abdomen: Soft, non distended, diffuse ttp worst in RUQ Relevant data reviewed: Results from last 7 days Lab Units 05/28/23 0708 WHITE BLOOD CELL COUNT Thou/uL 5.7 HEMOGLOBIN g/dL 10.1* HEMATOCRIT % 31.8* MCV fL 112* PLATELET COUNT Thou/uL 208 Results from last 7 days Lab Units 05/28/23 0708 05/27/23 1711 WHITE BLOOD CELL COUNT Thou/uL 5.7 7.3 HEMOGLOBIN g/dL 10.1* 11.3* HEMATOCRIT % 31.8* 36.3 PLATELET COUNT Thou/uL 208 223 Results from last 7 days Lab Units 05/28/23 0708 05/27/23 2356 05/27/23 1933 ALT U/L 136* < > -- AST U/L 158* < > -- GGT U/L -- -- 781* ALK PHOS U/L 292* < > -- BILIRUBIN TOTAL mg/dL 3.6* < > -- < > = values in this interval not displayed. Results from last 7 days Lab Units 05/27/23 1711 INR 1.0 Results from last 7 days Lab Units 05/28/23 0708 GLUCOSE mg/dL 64* CALCIUM mg/dL 8.9 SODIUM mmol/L 138 POTASSIUM mmol/L 4.1 CO2 mmol/L 25 CHLORIDE mmol/L 103 BUN mg/dL 7* CREATININE mg/dL 0.6 Results from last 7 days Lab Units 05/27/23 1711 LIPASE U/L 145* Blood Products - past 72 hours Blood Administration View: 05/25/23 1008 to 05/28/23 1008 (72 Hours) Sort by: Time None Sign: MER Nichole 05/28/2023 10:08 AM Associated attestation - Edilberto Franco MD - 05/28/2023 11:45 AM EST Attending Attestation I have personally seen and examined patient. I agree with HPI, A&P outlined below by MER Nichole Briefly, Batsheva Kahn is a 68 y.o. year old female with COPD, HTN, Afib on Eliquis, h/o of Etoh use, h/o ETOH pancreatitis transferred with biliary obstruction MRI showed extrahepatic bile duct dilation up to approximately 1.6 caliber CBD with smooth tapering to the ampulla, intrahepatic bile duct dilatation, diffuse pancreatic duct beaded like dilation measuring up to approximately 0.6 cm in caliber. Gallbladder overdistended with pericholecystic fluid Bili 3.6; Alk phos 292 Impression: Biliary Stricture Prob secondary to pancreatitis vs CBD stone Plan: Will proceed with ERCP Vitals: 05/28/23 0524 05/28/23 0533 05/28/23 0734 05/28/23 1003 BP: 123/60 123/60 (!) 115/53 (!) 119/58 BP Location: Right arm Right arm Right arm Patient Position: Lying Sitting Lying Pulse: 84 84 84 82 Resp: 16 16 16 Temp: 98.8 ?F (37.1 ?C) 97.5 ?F (36.4 ?C) TempSrc: Tympanic Oral SpO2: 96% 93% 92% No intake or output data in the 24 hours ending 05/28/23 1135 On examination, pertinent findings include Abd - soft + BS non-tender, non-distended, no HSM Review on labs and imaging was done and shows CBC Results from last 7 days Lab Units 05/28/23 0708 05/27/23 1711 WHITE BLOOD CELL COUNT Thou/uL 5.7 7.3 HEMOGLOBIN g/dL 10.1* 11.3* HEMATOCRIT % 31.8* 36.3 PLATELET COUNT Thou/uL 208 223 Electrolytes and Lactate Recent Labs 05/28/23 0708 PLT 208 NA 138 K 4.1 CL 103 CO2 25 ANIONGAP 10 BUN 7* CREAT 0.6 LACTIC 0.5 Hepatic Function/Pancreatic enzymes Recent Labs 05/27/23 1711 05/27/23 2356 05/28/23 0708 AST 177* 164* 158* ALT 162* 145* 136* ALKPHOS 304* 294* 292* BILITOT 2.8* 3.0* 3.6* ALBUMIN 4.1 3.5 3.6 PROT 6.5 5.7* 5.7* Results from last 7 days Lab Units 05/27/23 1711 LIPASE U/L 145* Coagulation Studies Recent Labs 05/27/23 1711 LABPROT 11.9 INR 1.0 Blood Products - past 72 hours Blood Administration View: 05/25/23 1135 to 05/28/23 1135 (72 Hours) Sort by: Time None C. Difficile: No results found for: CDIFFTOX , NAP1 ROS - No additions or deletions from below note Past Medical History: Past Surgical History: Past Medical History: Diagnosis Date A-fib (HCC) COPD (chronic obstructive pulmonary disease) (HCC) ETOH abuse History reviewed. No pertinent surgical history. Family / Social History: History reviewed. No pertinent family history. Social History Socioeconomic History Marital status: Spouse name: Not on file Number of children: Not on file Years of education: Not on file Highest education level: Not on file Occupational History Not on file Tobacco Use Smoking status: Former Packs/day: 3.00 Years: 50.00 Additional pack years: 0.00 Total pack years: 150.00 Types: Cigarettes Quit date: 03/20/2023 Years since quittin.1 Smokeless tobacco: Never Substance and Sexual Activity Alcohol use: Not Currently Comment: 4-5 vodka drinks per day, stopped 04/2023 Drug use: Not Currently Sexual activity: Not on file Other Topics Concern Not on file Social History Narrative Not on file Social Determinants of Health Financial Resource Strain: Not on file Food Insecurity: Not on file Transportation Needs: Not on file Physical Activity: Not on file Stress: Not on file Social Connections: Not on file Housing Stability: Not on file Allergies: Allergies Allergen Reactions Cefazolin Anaphylaxis Ketorolac Tromethamine Anaphylaxis Cephalexin Photosensitivity Current Medication List Medications Scheduled Medication Ordered Dose/Rate, Route, Frequency Last Action [Provider Held] apixaban (ELIQUIS) tablet 5 mg On hold since yesterday at 1914 until manually unheld; held by Yani Dorantes Reason: Pre-procedure On hold since yesterday at 1914 until manually unheld Hold reason: Pre-procedure 5 mg, PO, BID Ordered [Provider Held] clopidogrel (PLAVIX) tablet 75 mg On hold since yesterday at 1914 until manually unheld; held by Yani Dorantes Reason: Pre-procedure On hold since yesterday at 1914 until manually unheld Hold reason: Pre-procedure 75 mg, PO, Daily Ordered cyanocobalamin (VITAMIN B-12) tablet 250 mcg 250 mcg, PO, Daily Given, 250 mcg at 05/28 802 [Provider Held] diltiazem (CARDIZEM) tablet 30 mg On hold since today at 30 until manually unheld; held by Yani Dorantes Reason: Other - Comment requiredHold Comments: Patient refusing On hold since today at 30 until manually unheld Hold reason: Other - Comment required, Hold comment: Patient refusing 30 mg, PO, Q6H Ordered fluticasone-vilanterol (BREO ELLIPTA) 100-25 MCG/ACT inhaler 1 puff 1 puff, IN, Daily Given, 1 puff at 05/28 806 folic acid (FOLVITE) tablet 1,000 mcg 1,000 mcg, PO, Daily Given, 1,000 mcg at 05/28 803 furosemide (LASIX) tablet 20 mg 20 mg, PO, Daily Given, 20 mg at 05/28 802 gabapentin (NEURONTIN) capsule 600 mg 600 mg, PO, Nightly Given, 600 mg at 05/27 2047 PANTOprazole (PROTONIX) injection 40 mg 40 mg, IV, BID Given, 40 mg at 05/28 805 pravastatin (PRAVACHOL) tablet 40 mg 40 mg, PO, Nightly Given, 40 mg at 05/27 2048 traZODone (DESYREL) tablet 25 mg 25 mg, PO, Nightly Given, 25 mg at 05/27 2048 venlafaxine (EFFEXOR-XR) 24 hr capsule 75 mg 75 mg, PO, Daily with breakfast Given, 75 mg at 05/28 802 Continuous Medication Ordered Dose/Rate, Route, Frequency Last Action sodium chloride 0.9% (NS) infusion 100 mL/hr, 100 mL/hr, IV, Continuous New Bag, 100 mL/hr, 100 mL/hr at 05/27 2056 PRN Medication Ordered Dose/Rate, Route, Frequency Last Action albuterol (PROVENTIL HFA; VENTOLIN HFA) inhaler 2 puff 2 puff, IN, Q6H PRN Ordered HYDROmorphone (DILAUDID) injection 0.5 mg 0.5 mg, IV, Q3H PRN Given, 0.5 mg at 05/28 807 hydrOXYzine HCl (ATARAX) tablet 25 mg 25 mg, PO, Q6H PRN Ordered metoPROLOL TARTRATE (LOPRESSOR) tablet 25 mg 25 mg, PO, Q6H PRN Ordered XR Chest 1 view-Portable Result Date: 05/27/2023 EXAMINATION: XR CHEST CLINICAL INFORMATION: hx COPD, cough COMPARISON: Chest radiograph 05/26/2023. TECHNIQUE: AP portable upright view of the chest was obtained. FINDINGS: The lungs are well expanded. Chronic emphysema. There is no focal consolidation, overt edema, or effusion. No pneumothorax. The cardiomediastinal silhouette is normal and unchanged. No acute osseous abnormality. No acute pulmonary disease. Db Queen DO Entertainment Reporter I personally reviewed the images and the Resident's preliminary report and AGREE with the report as it is now presented ([id number]). GABRIEL Archive for reference only US Result Date: 05/27/2023 This order has been auto-finalized and does not contain a result. GABRIEL Archive for reference only MR Result Date: 05/27/2023 This order has been auto-finalized and does not contain a result. GABRIEL Archive for reference only CT Result Date: 05/27/2023 This order has been auto-finalized and does not contain a result. GABRIEL Archive for reference only DX Result Date: 05/27/2023 This order has been auto-finalized and does not contain a result. GABRIEL Archive for reference only CT Result Date: 05/27/2023 This order has been auto-finalized and does not contain a result. GABRIEL Archive for reference only US Result Date: 05/27/2023 This order has been auto-finalized and does not contain a result. GABRIEL Archive for reference only MR Result Date: 05/27/2023 This order has been auto-finalized and does not contain a result. Thank you for letting me participate in the care of your patient. If you have any questions or concerns, please don't hesitate to contact me at any time. Edilberto Franco MD 05/28/2023 11:35 AM documented in this encounter [facility] 05-28-2023 Emergency department Note Pt alert and oriented x 4, calm and cooperative, in NAD. Speaking in clear, full, coherent sentences. RR is even, equal bilateral non labored in a concentrator 2L. Pt endorsing back pain 8/10 and abd pain 5/10, medicated per MAR. Pt aware she is NPO pending GI consult. Eleonora Keane RN 05/28/23 08 [facility] 05-28-2023 Emergency department Note I have acknowledged/accepted the hand off of care for this patient. Pt is resting in stretcher in NAD. RR even, equal bilateral non labored in a concentrator 2L. Pt endorsing back pain 11/27 at this time. Denies any SOB. Eleonora Keane RN 05/28/23 0744 [facility] 05-28-2023 Emergency department Note Report given to Eleonora CLEMONS and care transferred at this time. Belkys Birmingham RN 05/28/23 0731 [facility] Work Phone: 05-28-2023 Emergency department Note Report given to KACI Katz and care transferred at this time. Elaine Bee RN 05/28/23 07 [facility] Work Phone: 05-28-2023 Emergency department Note Medicated per MAR for pain. Pt unable to sleep in hallway. Appearing in no acute distress att. Plan for ERCP this morning. Elaine Bee RN 05/28/23 0607 [facility] 05-28-2023 Emergency department Note Pt to ambulated to the restroom with a PASTING MACHINE OFFBEARER with a steady gait. Elaine Bee RN 05/28/23 0419 [facility] 05-28-2023 Emergency department Note Pt refusing to take cardizem per MAR. Per pt, it makes her shaky. Provider notified. Comfort needs addressed. Appearing in no acute distress att. Elaine Bee RN 05/28/23 0025 [facility] 05-27-2023 Note 124 [facility] Work Phone: P-R interval 124 ms EKG [facility] 05-27-2023 Note 408 [facility] Work Phone: Q-T interval 408 ms EKG [facility] 05-27-2023 Emergency department Note A&Ox4, speaking in clear full sentences. Pt endorsing abd pain. Denies any N/V, SOB/CP. Breathing is equal and unlabored on RA. Skin pwd. Neuros intact. Assisted to bedpan by PASTING MACHINE OFFBEARER. Xray and phleb at bedside. Pt took off oxygen probe. O2 sat 94-96% on RA. Plan for admit to IP. Elaine Bee RN 05/27/232004 [facility] 05-27-2023 History and physical note Images from the original note were not included. Note to Nursing Staff: Please contact me via page or TigerText with any questions or concerns. *Note to consulting providers: Please contact me with updates or recommendations regarding patient's plan of care. HOSPITAL MEDICINE ADMISSION HISTORY & PHYSICAL Admit Date: 05/27/2023 4:35 PM Patient's Primary Care Physician: Fernie Tristan MD Principal Problem: Biliary stricture (POA: Yes) Active Problems: Transaminitis (POA: Unknown) H/O ETOH abuse (POA: Yes) Macrocytic anemia (POA: Yes) Resolved Problems: ASSESSMENT & PLAN Assessment: 68 y/o F with pmh of COPD as needed home 2 L O2, hypertension, newly diagnosed A-fib 04/2024 on Eliquis, previous EtoH use disorder, presents to as a transfer from [facility] in [place] due to abdominal pain and biliary stricture on imaging. Concern for after MRCP showed ampullary level duct obstruction, new compared to 2016, chronic pancreatitis sequelae. Plan by Problem: #Bililary stricture #Rule out Choledocholithiasis # Tranaminitis - As mentioned MRCP-ampullary level duct obstruction, new compared to 2016, chronic pancreatitis sequelae -CT abdomen showed distended gallbladder, trace pericholecystic fluid without gallbladder wall thickening, findings are equivocal for acute cholecystitis, CBD approximately 1.6 cm, diffuse pancreatic duct beadlike dilation approximately - LFTs-AST/ALT 177/162 304 - Alk Phos - Lipase 145 - T bilirubin 2.8 Plan - admit medicine, inpatient - NPO except meds - IV PPI - resume IV fluids - anti emetics as needed - GI consulted - pain management as needed - trend LFTs - blood cultures -Monitor off antibiotics at this time, patient afebrile, no leukocytosis no signs of jaundice. She has an anaphylactic reaction to Ancef, would avoid cephalosporins. Likely levofloxacin + flagyl - alternatively can consider zosyn if she has tolerated penicillins in past #Hx alcohol use #Macrocytic Anemia - she says her last drink was Thanks2022 - she says she used to drink up to 5 Vodka cocktails per day - she denies current alcohol withdrawal symptoms - check ethanol level - check hepatitis panel - add on GGT - check UDS - check tylenol salicylate level - Hb 11.3, MCV - resume folate - will start CIWA protocol - she denies hx of withdrawals #Hx COPD # Tobacco use - likely not in acute exacerbation however she is on 2 L O2 - decreased lung sounds, wet cough, she denies sputum production. She has pleurisy and has chest wall tenderness. - check EKG - check troponin - check CXR - check fluvid - pro calcitonin ordered - breo ellipta daily - prn albuterol #A fib - newly diagnosed 04/2023 - holding eliquis -resume Cardizem 30 mg QID #HTN #HLD - resume lasix, Cardizem, statin #Mood Disorder - resume Effexor #MRT ordered to get med list Of note, some information is being carried forward from prior records for informational purposes only and is being cited so that efficiency, safety and quality of this patient's care is not compromised. This note was prepared using voice recognition software and direct typing. Please excuse inadvertent car installations supervisor or typing errors, or uncorrected word substitutions. Although every attempt has been made by the provider to proofread this document, occasional misspellings and typographical errors may still be present Telemetry:Yes IMPROVE SCORE: Age > 60 yrs: 1--> Age > 60 years IMPROVE SCORE: 1 DVT PPX: PAS CODE STATUS:full code HCP/Decision maker: Patient DVT PROPHYLAXIS Risk Assessment Scores and Dates: VTE Time Out IMPROVE SCORE: 1 (05/27/2023 6:34 PM) Interpretation - Low Risk Chemical Prophylaxis apixaban (ELIQUIS) tablet 5 mg Oral 2 times daily [ORDER ON HOLD or LAST DOSE HELD - Please Review] Mechanical Prophylaxis SCDs are ordered - Bilateral (Knee High) I have reviewed the patient's previous medical records in [facility], Care everywhere, OSH/SNF records (if available), and dispense Rx history # Expected Date of Discharge: 05/29/2023 # Last PDMP Review on by SUBJECTIVE Chief Complaint: Chief Complaint Patient presents with Abdominal Pain History of Present Illness: 68 y/o F with pmh of COPD as needed home 2 L O2, hypertension, newly diagnosed A-fib 04/2024 on Eliquis, previous EtoH use disorder, presents to as a transfer from [facility] in [place] due to abdominal pain and biliary stricture on imaging. History per patient. She says she has had symptoms of post prandial abdominal pain starting many weeks ago but has been more constant and intense abdominal pain over the last 3 days that prompted her to go to ED in [facility]. She denies fevers, chills, blood in stool, jaundice. She had transaminitis at OSH today and MRCP showed CBD dilation with stricture. Patient ultimately was transferred here for further GI intervention, ERCP. GI team here is aware at admission. Per her trasnfer docs it does not appear she was started on abx. She has had an anaphylactic reaction to Ancef in past. Regarding her chest pain, she attributes it being related to her abdominal pain, it is sharp, non radiating, associated with chest wall tenderness. She also is a known COPD patient, is on prn oxygen in past but reports non compliance. She reprots a wet cough but not productive. Review of Systems Constitutional: Negative for chills, diaphoresis, fatigue and fever. HENT: Negative for sore throat. Eyes: Negative for visual disturbance. Respiratory: Positive for shortness of breath. Negative for cough, chest tightness and wheezing. Cardiovascular: Positive for chest pain. Negative for palpitations and leg swelling. Gastrointestinal: Positive for abdominal pain. Negative for abdominal distention, blood in stool, constipation, diarrhea, nausea and vomiting. Genitourinary: Negative for difficulty urinating and dysuria. Musculoskeletal: Negative for myalgias. Skin: Negative for color change. Neurological: Negative for tremors, facial asymmetry, weakness and headaches. Hematological: Negative for adenopathy. Psychiatric/Behavioral: Negative for dysphoric mood. The patient is not nervous/anxious. OBJECTIVE Past History Past Medical History: Diagnosis Date A-fib ([facility]) COPD (chronic obstructive pulmonary disease) ([facility]) ETOH abuse History reviewed. No pertinent surgical history. History reviewed. No pertinent family history. Social History Tobacco Use Smoking status: Not on file Smokeless tobacco: Not on file Substance Use Topics Alcohol use: Not on file Allergies Allergies Allergen Reactions Cefazolin Anaphylaxis Ketorolac Tromethamine Anaphylaxis Cephalexin Photosensitivity Home Medications Prior to Admission medications Medication Sig Start Date End Date Taking? Authorizing Provider Advair Diskus 250-50 MCG/ACT diskus inhaler Inhale 1 puff 2 (two) times a day. 03/08/23 External Provider, albuterol (PROVENTIL HFA; VENTOLIN HFA) 108 (90 Base) MCG/ACT inhaler INHALE 2 PUFFS INTO LUNGS EVERY 6 HRS NEEDED FOR COUGH/WHEEZING 05/05/23 External Provider, aspirin enteric coated (ECOTRIN LOW STRENGTH) 81 MG EC tablet Take 1 tablet (81 mg total) by mouth daily. External Provider, citalopram (CeleXA) 40 MG tablet Take 1 tablet (40 mg total) by mouth daily. 03/10/23 External Provider, clopidogrel (PLAVIX) 75 MG tablet Take 1 tablet (75 mg total) by mouth daily. 03/15/23 External Provider, [facility] Mucus Extended Release 600 MG 12 hr tablet Take 1 tablet (600 mg total) by mouth twice daily (every 12 hours). 04/22/23 External Provider, diltiazem (CARDIZEM) 30 MG tablet Take 1 tablet (30 mg total) by mouth every 6 (six) hours. 04/22/23 External Provider, Eliquis 5 MG tablet Take 1 tablet (5 mg total) by mouth 2 (two) times a day. 05/11/23 External Provider, folic acid (FOLVITE) 1 MG tablet Take 1 tablet (1,000 mcg total) by mouth daily. 03/13/23 External Provider, furosemide (LASIX) 20 MG tablet Take 1 tablet (20 mg total) by mouth daily. 03/20/23 External Provider, gabapentin (NEURONTIN) 300 MG capsule Take 2 capsules (600 mg total) by mouth nightly. 03/07/23 External Provider, hydrOXYzine pamoate (VISTARIL) 25 MG capsule 05/24/23 External Provider, Incruse Ellipta 62.5 MCG/ACT inhaler INHALE 1 PUFF INTO THE LUNGS DAILY FOR 30 DAYS 04/22/23 External Provider, lovastatin (MEVACOR) 40 MG tablet TAKE 1 TABLET BY MOUTH EVERYDAY AT BEDTIME 03/10/23 External Provider, PANTOprazole (PROTONIX) 20 MG tablet Take 1 tablet (20 mg total) by mouth daily. 03/10/23 External Provider, traZODone (DESYREL) 50 MG tablet 05/24/23 External Provider, venlafaxine (EFFEXOR-XR) 75 MG 24 hr capsule 05/24/23 External Provider, vitamin B-12 100 MCG tablet Take 1 tablet (100 mcg total) by mouth daily. 04/22/23 External Provider, Physical Exam Vitals: 05/27/23 1632 05/27/23 16505/27/231842 BP: (!) 142/72 (!) 162/56 BP Location: Left arm Patient Position: Sitting Pulse: 88 87 Resp: 16 16 Temp: 97.3 ?F (36.3 ?C) TempSrc: Tympanic SpO2: 98% 98% 96% Patient Vitals for the past 24 hrs: BP Temp Temp src Pulse Resp SpO2 05/27/23 1843 (!) 162/56 -- -- 87 16 96 % 05/27/231651 -- -- -- -- -- 98 % 05/27/23 163 (!) 142/72 97.3 ?F (36.3 ?C) Tympanic 88 16 98 % No intake or output data in the 24 hours ending 05/27/231950 Last Vitals Pulse:87,Resp:16,BP:(!) 162/56,SpO2:96 %,Weight: Temp Last 24 hrs: Temp Min: 97.3 ?F (36.3 ?C) Max: 97.3 ?F (36.3 ?C) Last temp: 97.3 ?F (36.3 ?C) (Tympanic) Physical Exam Constitutional: General: She is not in acute distress. Appearance: Normal appearance. She is normal weight. She is not ill-appearing. Comments: Appears older than stared age HENT: Head: Normocephalic and atraumatic. Nose: Nose normal. No congestion or rhinorrhea. Eyes: Extraocular Movements: Extraocular movements intact. Conjunctiva/sclera: Conjunctivae normal. Cardiovascular: Rate and Rhythm: Normal rate and regular rhythm. Pulses: Normal pulses. Radial pulses are 2+ on the right side and 2+ on the left side. Heart sounds: Normal heart sounds, S1 normal and S2 normal. No murmur heard. Pulmonary: Effort: Pulmonary effort is normal. No respiratory distress. Breath sounds: Normal breath sounds. Decreased air movement present. No wheezing, rhonchi or rales. Comments: 2 L O2, non labored respirations, mild accessory muscle usage Chest: Chest wall: Tenderness present. Abdominal: General: Bowel sounds are increased. Palpations: Abdomen is soft. Tenderness: There is abdominal tenderness in the epigastric area. There is no guarding or rebound. Musculoskeletal: Cervical back: Neck supple. No tenderness. Right lower leg: No edema. Left lower leg: No edema. Lymphadenopathy: Cervical: No cervical adenopathy. Skin: General: Skin is warm and dry. Capillary Refill: Capillary refill takes less than 2 seconds. Coloration: Skin is not jaundiced. Neurological: General: No focal deficit present. Mental Status: She is oriented to person, place, and time. Mental status is at baseline. She is lethargic. Motor: No weakness. Psychiatric: Mood and Affect: Mood normal. Speech: Speech normal. Behavior: Behavior is slowed. Behavior is cooperative. No intake or output data in the 24 hours ending 05/27/231950 @EXAM@ ECG: No results found for this or any previous visit (from the past 8760 hour(s)). Relevant data reviewed Recent Results (from the past 48 hour(s)) Complete Blood Count, with Differential Collection Time: 05/27/23 5:11 PM Result Value Ref Range White Blood Cell Count 7.3 4.0 - 11.0 Thou/uL Platelet Count 223 150 - 450 Thou/uL Hemoglobin 11.3 (L) 11.7 - 15.7 g/dL Hematocrit 36.3 35.0 - 47.0 % Red Blood Cell Count 3.26 (L) 4.00 - 5.40 Mil/uL MCV 111 (H) 80 - 100 fL MCH 34.7 (H) 27.0 - 31.0 pg MCHC 31.1 30.0 - 36.0 g/dL RDW 16.6 (H) 11.5 - 14.5 % MPV 11.4 7.5 - 12.5 fL Neutrophils Auto 63.8 % Immature Granulocytes 1.4 % Lymphocytes Auto 22.7 % Monocytes Auto 10.2 % Eosinophils Auto 1.4 % Basophils Auto 0.5 % Abs Neutrophils Auto 4.65 2.00 - 7.50 Thou/uL Abs Immature Granulocytes 0.10 0.00 - 0.10 Thou/uL Abs Lymphocytes Auto 1.65 1.50 - 4.50 Thou/uL Abs Monocytes Auto 0.74 0.20 - 1.50 Thou/uL Abs Eosinophils Auto 0.10 0.00 - 0.70 Thou/uL Abs Basophils Auto 0.04 0.00 - 0.20 Thou/uL Comprehensive Metabolic Panel Collection Time: 05/27/23 5:11 PM Result Value Ref Range Glucose 83 65 - 99 mg/dL Blood Urea Nitrogen (BUN) 9 8 - 21 mg/dL Creatinine 0.7 0.4 - 1.1 mg/dL eGFR >90 >59 Sodium 139 136 - 145 mmol/L Potassium 4.1 3.4 - 5.3 mmol/L Chloride 103 98 - 107 mmol/L CO2 27 22 - 33 mmol/L Calcium 9.5 8.7 - 10.5 mg/dL Alkaline Phosphatase 304 (H) 32 - 122 U/L Aspartate Aminotrans (AST) 177 (H) 10 - 50 U/L Alanine Aminotrans (ALT) 162 (H) 10 - 50 U/L Bilirubin, Total 2.8 (H) 0.2 - 1.0 mg/dL Protein, Total 6.5 6.3 - 8.3 g/dL Albumin 4.1 3.4 - 4.8 g/dL BUN/Creatinine Ratio 13 10.0 - 25.0 Ratio Globulin 2.4 1.5 - 3.9 g/dL Albumin/Globulin Ratio 1.7 1.0 - 3.0 Ratio Anion Gap 9 7 - 17 Lipase Collection Time: 05/27/23 5:11 PM Result Value Ref Range Lipase 145 (H) 13 - 60 U/L Type and Screen Collection Time: 05/27/23 5:11 PM Result Value Ref Range ABO/Rh O POSITIVE Antibody Screen POSITIVE Specimen Expiration 05/30/2023 Antibody Identification No clinically significant Ab Unit Number [id number] Blood Component Type LEUKOREDUCED RED CELLS Unit Division 00 Unit Status ALLOCATED Transfusion Status OK TO TRANSFUSE Crossmatch Result COMPATIBLE Unit Number [id number] Blood Component Type LR RBC CONTAINER 2 Unit Division 00 Unit Status ALLOCATED Transfusion Status OK TO TRANSFUSE Crossmatch Result COMPATIBLE INR Collection Time: 05/27/23 5:11 PM Result Value Ref Range Anticoagulant OTHER AGENT OR UNKNOWN Prothrombin Time (PT) 11.9 10.0 - 13.5 seconds INR 1.0 Relevant data reviewed over one week Notable labs are: Results from last 7 days Lab Units 05/27/23 1711 WHITE BLOOD CELL COUNT Thou/uL 7.3 HEMOGLOBIN g/dL 11.3* HEMATOCRIT % 36.3 PLATELET COUNT Thou/uL 223 Results from last 7 days Lab Units 05/27/23 1711 SODIUM mmol/L 139 POTASSIUM mmol/L 4.1 CHLORIDE mmol/L 103 CO2 mmol/L 27 BUN mg/dL 9 CREATININE mg/dL 0.7 CALCIUM mg/dL 9.5 Results from last 7 days Lab Units 05/27/23 1711 INR 1.0 No results found for: CRYSUA , HYALNCSTUA , UROBILINOGEN , BILIUA , BLOODUA , CLARITYUA , COLORUA , UACOMMENT , GLUCU , KETONESUA , LEUKOCYTESUA , NITRITEUA , PHUA , PROTEINUA , RBCUA , SPECIMEN , SPECGRAVUA , "SQEPIUA , WBCUA Imaging Studies [facility] Archive for reference only US Result Date: 05/27/2023 This order has been auto-finalized and does not contain a result. [facility] Archive for reference only MR Result Date: 05/27/2023 This order has been auto-finalized and does not contain a result. [facility] Archive for reference only CT Result Date: 05/27/2023 This order has been auto-finalized and does not contain a result. [facility] Archive for reference only DX Result Date: 05/27/2023 This order has been auto-finalized and does not contain a result. [facility] Archive for reference only CT Result Date: 05/27/2023 This order has been auto-finalized and does not contain a result. [facility] Archive for reference only US Result Date: 05/27/2023 This order has been auto-finalized and does not contain a result. [facility] Archive for reference only MR Result Date: 05/27/2023 This order has been auto-finalized and does not contain a result. Sign Antonio Goel MD 05/27/2023 7:51 PM [facility] 05-27-2023 History and physical note Images from the original note were not included. Note to Nursing Staff: Please contact me via page or TigerText with any questions or concerns. *Note to consulting providers: Please contact me with updates or recommendations regarding patient's plan of care. HOSPITAL MEDICINE ADMISSION HISTORY & PHYSICAL Admit Date: 05/27/2023 4:35 PM Patient's Primary Care Physician: Fernie Tristan MD Principal Problem: Biliary stricture (POA: Yes) Active Problems: Transaminitis (POA: Unknown) H/O ETOH abuse (POA: Yes) Macrocytic anemia (POA: Yes) Resolved Problems: ASSESSMENT & PLAN Assessment: 68 y/o F with pmh of COPD as needed home 2 L O2, hypertension, newly diagnosed A-fib 04/2024 on Eliquis, previous EtoH use disorder, presents to as a transfer from [facility] in [place] due to abdominal pain and biliary stricture on imaging. Concern for after MRCP showed ampullary level duct obstruction, new compared to 2016, chronic pancreatitis sequelae. Plan by Problem: #Bililary stricture #Rule out Choledocholithiasis # Tranaminitis - As mentioned MRCP-ampullary level duct obstruction, new compared to 2016, chronic pancreatitis sequelae -CT abdomen showed distended gallbladder, trace pericholecystic fluid without gallbladder wall thickening, findings are equivocal for acute cholecystitis, CBD approximately 1.6 cm, diffuse pancreatic duct beadlike dilation approximately - LFTs-AST/ALT 177/162 304 - Alk Phos - Lipase 145 - T bilirubin 2.8 Plan - admit medicine, inpatient - NPO except meds - IV PPI - resume IV fluids - anti emetics as needed - GI consulted - pain management as needed - trend LFTs - blood cultures -Monitor off antibiotics at this time, patient afebrile, no leukocytosis no signs of jaundice. She has an anaphylactic reaction to Ancef, would avoid cephalosporins. Likely levofloxacin + flagyl - alternatively can consider zosyn if she has tolerated penicillins in past #Hx alcohol use #Macrocytic Anemia - she says her last drink was Thanks2022 - she says she used to drink up to 5 Vodka cocktails per day - she denies current alcohol withdrawal symptoms - check ethanol level - check hepatitis panel - add on GGT - check UDS - check tylenol salicylate level - Hb 11.3, MCV - resume folate - will start CIWA protocol - she denies hx of withdrawals #Hx COPD # Tobacco use - likely not in acute exacerbation however she is on 2 L O2 - decreased lung sounds, wet cough, she denies sputum production. She has pleurisy and has chest wall tenderness. - check EKG - check troponin - check CXR - check fluvid - pro calcitonin ordered - breo ellipta daily - prn albuterol #A fib - newly diagnosed 04/2023 - holding eliquis -resume Cardizem 30 mg QID #HTN #HLD - resume lasix, Cardizem, statin #Mood Disorder - resume Effexor #MRT ordered to get med list Of note, some information is being carried forward from prior records for informational purposes only and is being cited so that efficiency, safety and quality of this patient's care is not compromised. This note was prepared using voice recognition software and direct typing. Please excuse inadvertent car installations supervisor or typing errors, or uncorrected word substitutions. Although every attempt has been made by the provider to proofread this document, occasional misspellings and typographical errors may still be present Telemetry:Yes IMPROVE SCORE: Age > 60 yrs: 1--> Age > 60 years IMPROVE SCORE: 1 DVT PPX: PAS CODE STATUS:full code HCP/Decision maker: Patient DVT PROPHYLAXIS Risk Assessment Scores and Dates: VTE Time Out IMPROVE SCORE: 1 (05/27/2023 6:34 PM) Interpretation - Low Risk Chemical Prophylaxis apixaban (ELIQUIS) tablet 5 mg Oral 2 times daily [ORDER ON HOLD or LAST DOSE HELD - Please Review] Mechanical Prophylaxis SCDs are ordered - Bilateral (Knee High) I have reviewed the patient's previous medical records in [facility], Care everywhere, OSH/SNF records (if available), and dispense Rx history # Expected Date of Discharge: 05/29/2023 # Last PDMP Review on by SUBJECTIVE Chief Complaint: Chief Complaint Patient presents with Abdominal Pain History of Present Illness: 68 y/o F with pmh of COPD as needed home 2 L O2, hypertension, newly diagnosed A-fib 04/2024 on Eliquis, previous EtoH use disorder, presents to as a transfer from [facility] in [place] due to abdominal pain and biliary stricture on imaging. History per patient. She says she has had symptoms of post prandial abdominal pain starting many weeks ago but has been more constant and intense abdominal pain over the last 3 days that prompted her to go to ED in [facility]. She denies fevers, chills, blood in stool, jaundice. She had transaminitis at OSH today and MRCP showed CBD dilation with stricture. Patient ultimately was transferred here for further GI intervention, ERCP. GI team here is aware at admission. Per her trasnfer docs it does not appear she was started on abx. She has had an anaphylactic reaction to Ancef in past. Regarding her chest pain, she attributes it being related to her abdominal pain, it is sharp, non radiating, associated with chest wall tenderness. She also is a known COPD patient, is on prn oxygen in past but reports non compliance. She reprots a wet cough but not productive. Review of Systems Constitutional: Negative for chills, diaphoresis, fatigue and fever. HENT: Negative for sore throat. Eyes: Negative for visual disturbance. Respiratory: Positive for shortness of breath. Negative for cough, chest tightness and wheezing. Cardiovascular: Positive for chest pain. Negative for palpitations and leg swelling. Gastrointestinal: Positive for abdominal pain. Negative for abdominal distention, blood in stool, constipation, diarrhea, nausea and vomiting. Genitourinary: Negative for difficulty urinating and dysuria. Musculoskeletal: Negative for myalgias. Skin: Negative for color change. Neurological: Negative for tremors, facial asymmetry, weakness and headaches. Hematological: Negative for adenopathy. Psychiatric/Behavioral: Negative for dysphoric mood. The patient is not nervous/anxious. OBJECTIVE Past History Past Medical History: Diagnosis Date A-fib ([facility]) COPD (chronic obstructive pulmonary disease) ([facility]) ETOH abuse History reviewed. No pertinent surgical history. History reviewed. No pertinent family history. Social History Tobacco Use Smoking status: Not on file Smokeless tobacco: Not on file Substance Use Topics Alcohol use: Not on file Allergies Allergies Allergen Reactions Cefazolin Anaphylaxis Ketorolac Tromethamine Anaphylaxis Cephalexin Photosensitivity Home Medications Prior to Admission medications Medication Sig Start Date End Date Taking? Authorizing Provider Advair Diskus 250-50 MCG/ACT diskus inhaler Inhale 1 puff 2 (two) times a day. 03/08/23 External Provider, albuterol (PROVENTIL HFA; VENTOLIN HFA) 108 (90 Base) MCG/ACT inhaler INHALE 2 PUFFS INTO LUNGS EVERY 6 HRS NEEDED FOR COUGH/WHEEZING 05/05/23 External Provider, aspirin enteric coated (ECOTRIN LOW STRENGTH) 81 MG EC tablet Take 1 tablet (81 mg total) by mouth daily. External Provider, citalopram (CeleXA) 40 MG tablet Take 1 tablet (40 mg total) by mouth daily. 03/10/23 External Provider, clopidogrel (PLAVIX) 75 MG tablet Take 1 tablet (75 mg total) by mouth daily. 03/15/23 External Provider, [facility] Mucus Extended Release 600 MG 12 hr tablet Take 1 tablet (600 mg total) by mouth twice daily (every 12 hours). 04/22/23 External Provider, diltiazem (CARDIZEM) 30 MG tablet Take 1 tablet (30 mg total) by mouth every 6 (six) hours. 04/22/23 External Provider, Eliquis 5 MG tablet Take 1 tablet (5 mg total) by mouth 2 (two) times a day. 05/11/23 External Provider, folic acid (FOLVITE) 1 MG tablet Take 1 tablet (1,000 mcg total) by mouth daily. 03/13/23 External Provider, furosemide (LASIX) 20 MG tablet Take 1 tablet (20 mg total) by mouth daily. 03/20/23 External Provider, gabapentin (NEURONTIN) 300 MG capsule Take 2 capsules (600 mg total) by mouth nightly. 03/07/23 External Provider, hydrOXYzine pamoate (VISTARIL) 25 MG capsule 05/24/23 External Provider, Incruse Ellipta 62.5 MCG/ACT inhaler INHALE 1 PUFF INTO THE LUNGS DAILY FOR 30 DAYS 04/22/23 External Provider, lovastatin (MEVACOR) 40 MG tablet TAKE 1 TABLET BY MOUTH EVERYDAY AT BEDTIME 03/10/23 External Provider, PANTOprazole (PROTONIX) 20 MG tablet Take 1 tablet (20 mg total) by mouth daily. 03/10/23 External Provider, traZODone (DESYREL) 50 MG tablet 05/24/23 External Provider, venlafaxine (EFFEXOR-XR) 75 MG 24 hr capsule 05/24/23 External Provider, vitamin B-12 100 MCG tablet Take 1 tablet (100 mcg total) by mouth daily. 04/22/23 External Provider, Physical Exam Vitals: 05/27/23 1632 05/27/23 1652 05/27/23 1843 BP: (!) 142/72 (!) 162/56 BP Location: Left arm Patient Position: Sitting Pulse: 88 87 Resp: 16 16 Temp: 97.3 ?F (36.3 ?C) TempSrc: Tympanic SpO2: 98% 98% 96% Patient Vitals for the past 24 hrs: BP Temp Temp src Pulse Resp SpO2 05/27/23 1843 (!) 162/56 -- -- 87 16 96 % 05/27/23 165 -- -- -- -- -- 98 % 05/27/23 163 (!) 142/72 97.3 ?F (36.3 ?C) Tympanic 88 16 98 % No intake or output data in the 24 hours ending 05/27/231950 Last Vitals Pulse:87,Resp:16,BP:(!) 162/56,SpO2:96 %,Weight: Temp Last 24 hrs: Temp Min: 97.3 ?F (36.3 ?C) Max: 97.3 ?F (36.3 ?C) Last temp: 97.3 ?F (36.3 ?C) (Tympanic) Physical Exam Constitutional: General: She is not in acute distress. Appearance: Normal appearance. She is normal weight. She is not ill-appearing. Comments: Appears older than stared age HENT: Head: Normocephalic and atraumatic. Nose: Nose normal. No congestion or rhinorrhea. Eyes: Extraocular Movements: Extraocular movements intact. Conjunctiva/sclera: Conjunctivae normal. Cardiovascular: Rate and Rhythm: Normal rate and regular rhythm. Pulses: Normal pulses. Radial pulses are 2+ on the right side and 2+ on the left side. Heart sounds: Normal heart sounds, S1 normal and S2 normal. No murmur heard. Pulmonary: Effort: Pulmonary effort is normal. No respiratory distress. Breath sounds: Normal breath sounds. Decreased air movement present. No wheezing, rhonchi or rales. Comments: 2 L O2, non labored respirations, mild accessory muscle usage Chest: Chest wall: Tenderness present. Abdominal: General: Bowel sounds are increased. Palpations: Abdomen is soft. Tenderness: There is abdominal tenderness in the epigastric area. There is no guarding or rebound. Musculoskeletal: Cervical back: Neck supple. No tenderness. Right lower leg: No edema. Left lower leg: No edema. Lymphadenopathy: Cervical: No cervical adenopathy. Skin: General: Skin is warm and dry. Capillary Refill: Capillary refill takes less than 2 seconds. Coloration: Skin is not jaundiced. Neurological: General: No focal deficit present. Mental Status: She is oriented to person, place, and time. Mental status is at baseline. She is lethargic. Motor: No weakness. Psychiatric: Mood and Affect: Mood normal. Speech: Speech normal. Behavior: Behavior is slowed. Behavior is cooperative. No intake or output data in the 24 hours ending 05/27/231950 @EXAM@ ECG: No results found for this or any previous visit (from the past 8760 hour(s)). Relevant data reviewed Recent Results (from the past 48 hour(s)) Complete Blood Count, with Differential Collection Time: 05/27/23 5:11 PM Result Value Ref Range White Blood Cell Count 7.3 4.0 - 11.0 Thou/uL Platelet Count 223 150 - 450 Thou/uL Hemoglobin 11.3 (L) 11.7 - 15.7 g/dL Hematocrit 36.3 35.0 - 47.0 % Red Blood Cell Count 3.26 (L) 4.00 - 5.40 Mil/uL MCV 111 (H) 80 - 100 fL MCH 34.7 (H) 27.0 - 31.0 pg MCHC 31.1 30.0 - 36.0 g/dL RDW 16.6 (H) 11.5 - 14.5 % MPV 11.4 7.5 - 12.5 fL Neutrophils Auto 63.8 % Immature Granulocytes 1.4 % Lymphocytes Auto 22.7 % Monocytes Auto 10.2 % Eosinophils Auto 1.4 % Basophils Auto 0.5 % Abs Neutrophils Auto 4.65 2.00 - 7.50 Thou/uL Abs Immature Granulocytes 0.10 0.00 - 0.10 Thou/uL Abs Lymphocytes Auto 1.65 1.50 - 4.50 Thou/uL Abs Monocytes Auto 0.74 0.20 - 1.50 Thou/uL Abs Eosinophils Auto 0.10 0.00 - 0.70 Thou/uL Abs Basophils Auto 0.04 0.00 - 0.20 Thou/uL Comprehensive Metabolic Panel Collection Time: 05/27/23 5:11 PM Result Value Ref Range Glucose 83 65 - 99 mg/dL Blood Urea Nitrogen (BUN) 9 8 - 21 mg/dL Creatinine 0.7 0.4 - 1.1 mg/dL eGFR >90 >59 Sodium 139 136 - 145 mmol/L Potassium 4.1 3.4 - 5.3 mmol/L Chloride 103 98 - 107 mmol/L CO2 27 22 - 33 mmol/L Calcium 9.5 8.7 - 10.5 mg/dL Alkaline Phosphatase 304 (H) 32 - 122 U/L Aspartate Aminotrans (AST) 177 (H) 10 - 50 U/L Alanine Aminotrans (ALT) 162 (H) 10 - 50 U/L Bilirubin, Total 2.8 (H) 0.2 - 1.0 mg/dL Protein, Total 6.5 6.3 - 8.3 g/dL Albumin 4.1 3.4 - 4.8 g/dL BUN/Creatinine Ratio 13 10.0 - 25.0 Ratio Globulin 2.4 1.5 - 3.9 g/dL Albumin/Globulin Ratio 1.7 1.0 - 3.0 Ratio Anion Gap 9 7 - 17 Lipase Collection Time: 05/27/23 5:11 PM Result Value Ref Range Lipase 145 (H) 13 - 60 U/L Type and Screen Collection Time: 05/27/23 5:11 PM Result Value Ref Range ABO/Rh O POSITIVE Antibody Screen POSITIVE Specimen Expiration 05/30/2023 Antibody Identification No clinically significant Ab Unit Number [id number] Blood Component Type LEUKOREDUCED RED CELLS Unit Division 00 Unit Status ALLOCATED Transfusion Status OK TO TRANSFUSE Crossmatch Result COMPATIBLE Unit Number [id number] Blood Component Type LR RBC CONTAINER 2 Unit Division 00 Unit Status ALLOCATED Transfusion Status OK TO TRANSFUSE Crossmatch Result COMPATIBLE INR Collection Time: 05/27/23 5:11 PM Result Value Ref Range Anticoagulant OTHER AGENT OR UNKNOWN Prothrombin Time (PT) 11.9 10.0 - 13.5 seconds INR 1.0 Relevant data reviewed over one week Notable labs are: Results from last 7 days Lab Units 05/27/23 1711 WHITE BLOOD CELL COUNT Thou/uL 7.3 HEMOGLOBIN g/dL 11.3* HEMATOCRIT % 36.3 PLATELET COUNT Thou/uL 223 Results from last 7 days Lab Units 05/27/23 1711 SODIUM mmol/L 139 POTASSIUM mmol/L 4.1 CHLORIDE mmol/L 103 CO2 mmol/L 27 BUN mg/dL 9 CREATININE mg/dL 0.7 CALCIUM mg/dL 9.5 Results from last 7 days Lab Units 05/27/23 1711 INR 1.0 No results found for: CRYSUA , HYALNCSTUA , UROBILINOGEN , BILIUA , BLOODUA , CLARITYUA , COLORUA , UACOMMENT , GLUCU , KETONESUA , LEUKOCYTESUA , NITRITEUA , PHUA , PROTEINUA , RBCUA , SPECIMEN , SPECGRAVUA , "SQEPIUA , WBCUA Imaging Studies [facility] Archive for reference only US Result Date: 05/27/2023 This order has been auto-finalized and does not contain a result. [facility] Archive for reference only MR Result Date: 05/27/2023 This order has been auto-finalized and does not contain a result. [facility] Archive for reference only CT Result Date: 05/27/2023 This order has been auto-finalized and does not contain a result. [facility] Archive for reference only DX Result Date: 05/27/2023 This order has been auto-finalized and does not contain a result. [facility] Archive for reference only CT Result Date: 05/27/2023 This order has been auto-finalized and does not contain a result. [facility] Archive for reference only US Result Date: 05/27/2023 This order has been auto-finalized and does not contain a result. [facility] Archive for reference only MR Result Date: 05/27/2023 This order has been auto-finalized and does not contain a result. Sign Antonio Goel MD 05/27/2023 7:51 PM documented in this encounter [facility] 05-27-2023 Emergency department Note I have acknowledged/accepted the hand off of care for this patient. Elaine Bee RN 05/27/231905 [facility] 05-27-2023 Physician Emergency department Note History Chief Complaint Patient presents with Abdominal Pain HPI: I reviewed any nurses notes, vital signs, home medication list, other history or pertinent diagnostic tests available History provided by: The patient and medical records Associated symptoms and Additional history: Pt is a 68-year-old female with past medical history of atrial fibrillation, COPD and EtOH abuse. Presenting to emergency department with c/o diffuse abd pain. States most of the discomfort she is feeling at this time is in her back. Patient coming from outside hospital as a transfer. CT done showed CBD dilation. GI at [facility] did MRCP which shows a stricture in CBD at level of the ampulla with obstruction. Pt needs ERCP which the referring facility can not do. Patient is denying any fever/chills. Additional HPI Past Medical History: Diagnosis Date A-fib (HCC) COPD (chronic obstructive pulmonary disease) (HCC) ETOH abuse No past surgical history on file. No family history on file. Review of Systems Respiratory: Negative. Cardiovascular: Negative. All other systems negative x 10 except where noted in HPI or above Physical Exam BP (!) 142/72 Pulse 88 Temp 97.3 ?F (36.3 ?C) (Tympanic) Resp 16 SpO2 98% Physical Exam Vitals and nursing note reviewed. Constitutional: General: She is not in acute distress. Appearance: She is not toxic-appearing. Thin and uncomfortable appearing lady laying in stretcher. Cardiovascular: Rate and Rhythm: Normal rate and regular rhythm. Heart sounds: Normal heart sounds. Pulmonary: Effort: Pulmonary effort is normal. Breath sounds: Normal breath sounds. Abdominal: General: Bowel sounds are normal. There is no distension. Palpations: Abdomen is soft. Tenderness: There is no guarding or rebound. Mild tenderness to palpation of the upper abdomen/epigastric region. Musculoskeletal: General: Normal range of motion. Skin: General: Skin is warm and dry. Neurological: Mental Status: She is alert. ED Course Final diagnoses: None MDM: Number and Complexity of Problems Addressed MDM Detail: Patient presenting to emergency department due to need for further treatment from outside hospital. Will send [place] text information to gastroenterology and have patient admitted to medicine. Will continue to manage her discomfort while here in the emergency department. Amount and Complexity of Data Risk of Complications and/or Morbidity or Mortality of Patient Management Critical Care [facility] Archive for reference only DX [facility] Archive for reference only MR [facility] Archive for reference only US [facility] Archive for reference only CT [facility] [place] 05/27/23 1738 Associated attestation - Kenji Escobedo DO - 05/27/2023 6:59 PM EST I personally saw the patient and performed a substantive portion of the visit including all aspects of the medical decision-making. I reviewed the AP's or resident's findings, supervised the management of the patient, made/approved the management plan and take responsibility for the patient management. Further, I agree with the controlled substance prescriptions(s) and/or order(s) as written by the AP, if any. My note reflects my personal findings on my history and exam. This is a 68-year-old female presenting to the emergency department from outside hospital for common bile duct dilation secondary to stricture as visualized on MRCP being transferred to [facility] for GI evaluation and ERCP in the setting of generalized abdominal pain for 3 days On arrival, patient is afebrile, nontoxic-appearing, and abdomen is soft, nontender nondistended without rebound, guarding or peritoneal signs. During the course of the patient's evaluation, acute cholangitis was considered though appears less likely at this time as patient is without fever, shakes or chills, leukocytosis or leukopenia, or jaundice therefore not meeting [place] guidelines for acute cholangitis. Suspect elevated elevated LFTs, alkaline phosphatase and bilirubin in setting of known obstruction. Low threshold to initiate antibiotics in the event patient becomes febrile or developes chills. Case discussed with on-call gastroenterology team. Plan for patient to be admitted for GI evaluation and planned ERCP with patient to be n.p.o. at midnight. [facility] 05-27-2023 Emergency department Note Clinical Impression: Abdominal pain HPI: 68 yo hx of COPD F transfer from [facility] with CBD stricture needs ERCP. Per pt had abdominal pain x 3 days Constitutional:Mental status alert and appropriate Abdomen:Abdomen soft, non-tender, non-distended without peritoneal signs. MDM: [facility] Work Phone: Evaluation note Diagnosis Biliary stricture- Primary Obstruction of bile duct Abdominal pain Abdominal pain, unspecified site Transaminitis Nonspecific elevation of levels of transaminase or lactic acid dehydrogenase (LDH) Hyperbilirubinemia Disorders of bilirubin excretion Biliary stricture Obstruction of bile duct Drug-induced constipation Other constipation Transaminitis Nonspecific elevation of levels of transaminase or lactic acid dehydrogenase (LDH) H/O ETOH abuse Macrocytic anemia Pancreatic duct stricture Other specified disease of pancreas [facility] Reason Comments Other [facility] for visit Narrative* Reason Comments Abdominal Pain * Auth/Cert (Routine) Specialty Diagnoses / Procedures Referred By Bianca t Referred To Contact Diagnoses Abdominal pain Choledocholithiasis Abd pain Procedures na Referral ID Status Reason Start Date Expiration Date Visits Re quested Visits Authorized [id number] 1 1 [facility] Advance Directives Latest Code Status on File Code Status Date Activated Date Inactivated Comments Full Code 05/27/2023 7:09 PM Date Activated Date Inactivated Comments 05/27/2023 7:09 PM Additional Source Comments Care Teams (unrecognized sec tion and content) Acupuncture Physician Relationship Specialty Start Date End Date Fernie Tristan MD [address] [place] [address] PCP - General 05/27/23 Acupuncture Physician Relationship Specialty Start Date End Date Fernie Tristan MD [address] [place] [id number] PCP - General 05/27/23 Acupuncture Physician Relationship Specialty Start Date End Date Fernie Tristan MD [address] [place] [id number] PCP - General 05/27/23 Acupuncture Physician Relationship Specialty Start Date End Date Fernie Tristan MD [address] [place] [phone] PCP - General 05/27/23 Scheduled Active and Recently Administ ered Medications (unrecognized section and content) Medication Order 05/28/2023 05/29/2023 05/30/2023 apixaban (ELIQUIS) tablet 5 mg 5 mg, Oral, 2 times daily, First dose on Sun05/27/23 at 2100, Tablets may be crushed and suspended in 60 mL of water, D5W, or apple juice or mixed with applesauce; administer immediately. For delivery through a nasogastric tube, crushed tablets may be suspended in 60 mL of water or D5W followed by immediate delivery., Indication for Anticoagulation: Atrial Fibrillation 0900 (Dose Auto Held)2100 (Not Given - Provider: Izabela Hernandez RN - Reason: See Provider Order) 0900 (Hold - Provider: Malia Chou RN - Reason: See Provider Order)1035 (Provider Unheld - Provider: ANISA Salazar)1035 (Provider Held - Provider: ANISA Salazar - Reason: Pre-procedure)2100 (Dose Auto Held - Provider: ANISA Salazar) 0900 (Dose Auto Held - Provider: ANISA Salazar)0918 (Provider Unheld - Provider: Morena Monteiro MD)1305 (Given - Provider: Mckenzie Shi RN)2100 (Due) calcium gluconate IVPB 1 g in 50 mL 0.67% NaCl PREMIX (COMPLETED) 1 g, Intravenous, at 50 mL/hr, Once, On Sun05/30/23 at 0930, For 1 dose 1032 (New Bag - Provider: Mckenzie Shi RN)1140 (Stopped - Provider: Mckenzie Shi RN) clopidogrel (PLAVIX) tablet 75 mg 75 mg, Oral, Daily, First dose on 05/27/23 at 1916 0900 (Dose Auto Held) 0900 (Hold - Provider: Malia hCou RN - Reason: See Provider Order)1035 (Provider Unheld - Provider: ANISA Salazar)1035 (Provider Held - Provider: ANISA Salazar - Reason: Pre-procedure) 0900 (Dose Auto Held - Provider: ANISA Salazar)0918 (Provider Unheld - Provider: Morena Monteiro MD)1305 (Given - Provider: Mckenzie Shi RN) cyanocobalamin (VITAMIN B-12) tablet 250 mcg 250 mcg, Oral, Daily, First dose on Sun05/27/23 at 1916 0803 (Given - Provider: Eleonora Keane RN) 0829 (Given - Provider: Malia Chou RN) 0852 (Given - Provider: Mckenzie Shi RN) diltiazem (CARDIZEM) tablet 30 mg (CANCELED) 30 mg, Oral, Every 6 hours, First dose on 05/27/23 at 1916, Hold for HR less than 45 bpm and/or SBP less than 90 mmHg. Notify provider if a dose is held. 0019 (Not Given - Provider: Elaine Bee RN - Reason: Patient/family refused - Comment: Pt states she does not take because it makes her shaky)0031 (Provider Held - Provider: Antonio Goel MD - Reason: Other - Comment required - Comment: Patient refusing)0716 (Dose Auto Held - Provider: Antonio Goel MD)1316 (Hold - Provider: Malia Chou RN - Reason: See Provider Order)1916 (Not Given - Provider: Izabela Hernandez RN - Reason: See Provider Order) 0116 (Not Given - Provider: Izabela Hernandez RN - Reason: Patient/family refused)0716 (Not Given - Provider: Izabela Hernandez RN - Reason: See Provider Order)1035 (Provider Unheld - Provider: ANISA Salazar)1035 (Provider Held - Provider: ANISA Salazar - Reason: Pre-procedure)1037 (Provider Unheld - Provider: ANISA Salazar)1408 (Not Given - Provider: Malia Chou RN - Reason: Patient/family refused - Comment: states she never takes this)1808 (Not Given - Provider: Malia Chou RN - Reason: Patient/family refused) 0111 (Not Given - Provider: Dougie Marr RN - Reason: Patient/family refused)0903 (Given - Provider: Mckenzie Shi RN) fluticasone-vilanterol (BREO ELLIPTA) 100-25 MCG/ACT inhaler 1 puff 1 puff, Inhalation, Daily, First dose on Sun05/28/23 at 0900, Rinse mouth with water after inhalation and spit. 0807 (Given - Provider: Eleonora Keane RN) 0833 (Given - Provider: Malia Chou RN) 0916 (Given - Provider: Mckenzie Shi RN) folic acid (FOLVITE) tablet 1,000 mcg 1,000 mcg, Oral, Daily, First dose on Sun05/27/23 at 1916 0804 (Given - Provider: Eleonora Keane RN) 0829 (Given - Provider: Malia Chou RN) 0852 (Given - Provider: Mckenzie Shi RN) furosemide (LASIX) tablet 20 mg (CANCELED) 20 mg, Oral, Daily, First dose on Sun05/28/23 at 0900, Hold for SBP less than 100 mmHg. Notify provider if a dose is held. 0803 (Given - Provider: Eleonora Keane RN) 0829 (Given - Provider: Malia Chou RN) 0852 (Given - Provider: Mckenzie Shi RN) gabapentin (NEURONTIN) capsule 600 mg 600 mg, Oral, Nightly, First dose on 05/27/23 at 2099 2030 (Given - Provider: Izabela Hernandez RN) 2056 (Given - Provider: Dougie Marr RN) 2099 (Due) magnesium sulfate IVPB 1 g in 100 mL D5W (premix) (COMPLETED) 1 g, Intravenous, Administer over 30 Minutes, Once, On Sun05/30/23 at 0930, For 1 dose 0913 (New Bag - Provider: Mckenzie Shi RN)1020 (Stopped - Provider: Mckenzie Shi RN) PANTOprazole (PROTONIX) injection 40 mg 40 mg, Intravenous, 2 times daily, First dose on Sun05/27/23 at 2099, Reconstitute each 40 mg vial with 10 ml NS and administer over 2 minutes 0806 (Given - Provider: Eleonora Kaene RN)2030 (Given - Provider: Izabela Hernandez RN) 0828 (Given - Provider: Malia Chou RN)2055 (Given - Provider: Dougie Marr RN) 0855 (Given - Provider: Mckenzie Shi RN)2099 (Due) potassium chloride (KLOR-CON) packet 40 mEq (COMPLETED) 40 mEq, Oral, Once, On Sun05/30/23 at 0800, For 1 dose, Dissolve contents of 1 packet in 4 ounces of water. 0855 (Given - Provider: Mckenzie Shi RN) POTASSIUM phosphate IVPB 15 mmol in 250 mL NS (premix) (COMPLETED) 15 mmol, Intravenous, at 83.3 mL/hr, Once, On Sun05/30/23 at 0930, For 1 dose 1138 (New Bag - Provider: Mckenzie Shi RN)1510 (Stopped - Provider: Mckenize Shi RN) pravastatin (PRAVACHOL) tablet 40 mg 40 mg, Oral, Nightly, First dose on 05/27/23 at 2099 2030 (Given - Provider: Izabela Hernandez RN) 2055 (Given - Provider: Dougie Marr RN) 2099 (Due) traZODone (DESYREL) tablet 25 mg 25 mg, Oral, Nightly, First dose on 05/27/23 at 2099 2030 (Given - Provider: Izabela Hernandez, RN) 2056 (Given - Provider: Dougie Marr, KACI) 2100 (Due) venlafaxine (EFFEXOR-XR) 24 hr capsule 75 mg 75 mg, Oral, Daily with breakfast, First dose on Sun05/28/23 at 0800, *Swallow capsule/tablet whole. Alternatively, the contents of the capsule/tablet may be sprinkled onto a tablespoon of applesauce and consume immediately without chewing* 0803 (Given - Provider: Eleonora Keane, RN) 0829 (Given - Provider: Malai Chou, RN) 0851 (Given - Provider: Mckenzie Shi, RN) Continuous Medication Order 05/28/2023 05/29/2023 05/30/2023 sodium chloride 0.9% (NS) infusion (CANCELED) 100 mL/hr, Intravenous, Continuous, Starting on Sun05/27/23 at 1909 0418 (Continue Running Infusion - Provider: Elaine Bee RN)0829 (Continue Running Infusion - Provider: Lisa Melgar RN)1728 (Continue Running Infusion - Provider: Malia Chou, KACI) 0336 (New Bag - Provider: Izabela Hernandez RN)1317 (Continue Running Infusion - Provider: Malia Chou RN) 0339 (New Bag - Provider: Dougie Marr, KACI)1143 (Stopped - Provider: Mckenzie Shi, KACI) PRN Medication Order 05/28/2023 05/29/2023 05/30/2023 albuterol (PROVENTIL HFA; VENTOLIN HFA) inhaler 2 puff 2 puff, Inhalation, Every 6 hours PRN, wheezing, shortness of breath, Starting on 05/27/23 at 1915 HYDROmorphone (DILAUDID) injection 0.5 mg (CANCELED) 0.5 mg, Intravenous, Every 3 hours PRN, severe to excruciating pain 7-10, Starting on Sun05/28/23 at 0055, For 7 days 0102 (Given - Provider: Elaine Bee, KACI)0441 (Given - Provider: Elaine Bee RN)0808 (Given - Provider: Eleonora Keane RN)1425 (Given - Provider: Malia Chou, KACI)1735 (Given - Provider: Malia Chou, RN)203 (Given - Provider: Izabela Hernandez, KACI)2314 (Given - Provider: Izabela Hernandez, KACI) 0559 (Given - Provider: Izabela Hernandez, KACI)1054 (Not Given - Provider: Afshan Fitzpatrick RN - Reason: Change in order) HYDROmorphone (DILAUDID) injection 1 mg (CANCELED) 1 mg, Intravenous, Every 3 hours PRN, severe to excruciating pain 7-10, Starting on Sun05/29/23 at 1039, For 134 hours 1052 (Given - Provider: Afshan Fitzpatrick RN)1712 (Given - Provider: Laura Parish RN - Comment: only 2mg vials in PACU.)210 (Given - Provider: Dougie Marr RN) 0847 (Not Given - Provider: Mckenzie Shi, KACI - Reason: See Provider Order) HYDROmorphone (DILAUDID) tablet 2 mg 2 mg, Oral, Every 3 hours PRN, severe to excruciating pain 7-10, Starting on Sun05/30/23 at 0834, For 7 days 0851 (Given - Provider: Mckenzie Shi, KACI) hydrOXYzine HCl (ATARAX) tablet 25 mg 25 mg, Oral, Every 6 hours PRN, itching, nausea, anxiety, Starting on Sun05/27/23 at 1915 0113 (Hold - Provider: Elaine Bee RN - Reason: Other - Comment required) metoPROLOL TARTRATE (LOPRESSOR) tablet 25 mg 25 mg, Oral, Every 6 hours PRN, SBP greater than 170 mmHg, or HR greater than 130 sustaining, Starting on Sun05/28/23 at 0030, Hold for HR less than 45 bpm and/or SBP less than 90 mmHg. Notify provider if a dose is held. ondansetron (ZOFRAN) injection 4 mg 4 mg, Intravenous, Once PRN, nausea, vomiting, Starting on Sun05/29/23 at 1658, For 1 dose, PACU (only) This clinical document has been generated using [employer] software that has been certified by the Office of the National Coordinator for Health Information Technology (ONC 15.99.04.3023.Diam.31.00.0.028081) and the National Committee for [employer] (NCQA, as an eMeasure certified technology). FOR RECORDS PERTAINING TO PATIENTS WHO ARE OR HAVE BEEN ENROLLED IN A CHEMICAL DEPENDENCY/SUBSTANCEABUSE PROGRAM, SOME INFORMATION MAY BE OMITTED. This clinical summary was aggregated from multiple sources. Caution should be exercised in using it in the provision of clinical care. This summary normalizes information from multiple sources, and as a consequence, information in this document may materially change the coding, format and clinical context of patient data. In addition, data may be omitted in some cases. CLINICAL DECISIONS SHOULD BE BASED ON THE PRIMARY CLINICAL RECORDS. [employer] provides no warranty or guarantee of the accuracy or completeness of information in this document.The following information is based on time limited clinical information
== END 2024-05-23 16:12 | disposition home or self-care (01) ==
PROVIDERS: PCP Internal Medicine; Visit Provider Physician Assistant
DX: M54.6 Pain in thoracic spine (principal); M43.16 Spondylolisthesis, lumbar region
CPT/HCPCS: 99213

== ENCOUNTER → 2024-05-23 11:50 | Outpatient (BNVA) | payer MEDICARE, OTHER, SELFPAY | PROVIDERS: PCP Internal Medicine; Visit Provider Physician Assistant | DX: M54.6 Pain in thoracic spine (principal); M43.16 Spondylolisthesis, lumbar region | CPT/HCPCS: 99212 ==